=== PATIENT | female | born 1960 | race Caucasian/White ===

== ENCOUNTER → 2017-12-25 17:32 | Outpatient (CLI) | payer OTHER, MEDICAID, SELFPAY ==
--- NOTE | 2017-12-25 17:36 | DI.RAD.S_ITS ---
PROCEDURE: XR SACRUM COCCYX MIN 2V INDICATIONS: back pain TECHNIQUE: 3 views of the sacrum and coccyx acquired. COMPARISON: [facility], KHUSHI, L-SPINE 2-3 VIEWS, 04/11/2015, 10:53. [facility], KHUSHI, XR LUMBAR SPINE 2-3V, 12/25/2017, 17:42. FINDINGS: Bones: No fractures or dislocations. No suspicious bony lesions. Soft tissues: Visualized bowel gas pattern is normal. No suspicious soft tissue densities. IMPRESSION: No trauma found, involving the sacrum. Note is again made of a bilateral pars interarticularis defect at L5, with secondary grade 2 anterolisthesis of L5 on S1. This has been previously documented including in April of 2015. Dictated by: Neo Cornejo M.D. on 12/25/2017 at 19:33 Approved by: Neo Cornejo M.D. on 12/25/2017 at 19:35
--- NOTE | 2017-12-25 17:36 | DI.RAD.S_ITS ---
PROCEDURE: XR LUMBAR SPINE 2-3V INDICATIONS: back pain TECHNIQUE: 2 views of the lumbar spine were acquired. COMPARISON: None. FINDINGS: Bones: 5 [id number] vertebrae are present. There is abnormal bony alignment with grade 2 anterolisthesis of L5 on S1 associated with bilateral pars interarticularis defects. No vertebral body compression fractures. No suspicious bony lesions. Soft tissues: Overlying bowel gas pattern is normal. No suspicious soft tissue calcifications. IMPRESSION: Bilateral pars interarticularis defects are present with grade 2 anterolisthesis of L5 on S1. This likely is chronic and congenital, and orthopedic surgical consultation is recommended electively, depending on the clinical status. Dictated by: Neo Cornejo M.D. on 12/25/2017 at 19:32 Approved by: Neo Cornejo M.D. on 12/25/2017 at 19:33
== END ==
PROVIDERS: PCP Physician Assistant; Visit Provider Physician Assistant
DX: M54.5 Low back pain (principal); M43.17 Spondylolisthesis, lumbosacral region
CPT/HCPCS: 72100; 72220

== ENCOUNTER → 2018-01-14 14:37 | Outpatient (CLI) | payer OTHER, MEDICAID, SELFPAY ==
[2018-01-14 16:43] LABS: Add Manual Diff / Slide Review NO; Basophils Percent Auto 0.7 % (0-2); Eosinophils Percent Auto 1.6 % (2-4); Hematocrit 40.3 % (36-46); Hemoglobin 13.8 g/dL (12.0-16.0); Lymphocytes Percent Auto 46.4 % (25-40); Mean Corpuscular HGB Conc 34.4 % (30-36); Mean Corpuscular Hemoglobin 33.3 PG (26-34); Mean Corpuscular Volume 96.8 fL (80-100); Monocytes Percent Auto 7.2 % (3-14); Neutrophils Absolute Auto 2900 /uL (3000-5900); Neutrophils Percent Auto 44.1 % (50-75); Platelet Count 349 X10^3/uL (150-400); Red Blood Cell Count 4.16 X10^6/uL (4.0-5.2); Red Cell Distribution Width 13.1 % (11.6-14.8); White Blood Cell Count 6.6 X10^3/uL (4.5-11.0)
[2018-01-14 16:57] LABS: HEMOLYSIS < 15 (0-50); Iron 146 ug/dL (37-170)
[2018-01-14 16:58] LABS: Alanine Aminotransferase 24 IU/L (9-52); Albumin 4.4 g/dL (3.5-5.0); Albumin Globulin Ratio 1.6 (1.0-2.8); Alkaline Phosphatase 67 U/L (38-126); Aspartate Aminotransferase 22 IU/L (14-36); BUN Creatinine Ratio 21.7 (6-22); Bilirubin Total 0.3 mg/dL (0.2-1.3); Blood Urea Nitrogen 13 mg/dL (7-17); Calcium 9.5 mg/dL (8.4-10.2); Carbon Dioxide 28 mmol/L (22-32); Chloride 104 mmol/L (98-107); Estimated Glomerular Filt Rate > 60.0 mL/min (>60); Globulin 2.7 g/dL (1.7-4.1); Glucose 93 mg/dL (70-100); HEMOLYSIS < 15 (0-50); Potassium 3.7 mmol/L (3.4-5.1); Sodium 143 mmol/L (137-145); Total Protein 7.1 g/dL (6.3-8.2)
[2018-01-14 17:07] LABS: Percent Iron Saturation 43 % (15-50); Total Iron Binding Capacity 339 ug/dL (265-497); Transferrin 299 mg/dL (206-381)
[2018-01-14 17:21] LABS: Vitamin D 25 Hydroxy (D3) 32.5 ng/mL (30.0-100.0)
[2018-01-14 17:29] LABS: Thyroid Stimulating Hormone 2.42 uIU/mL (0.47-4.68)
[2018-01-14 17:33] LABS: Ferritin 47.2 ng/mL (11.1-264)
[2018-01-14 17:47] LABS: Vitamin B12 > 1000 pg/mL (239-931)
== END ==
PROVIDERS: Family Provider Physician Assistant; PCP Physician Assistant; Visit Provider Physician Assistant
DX: M54.5 Low back pain (principal); R50.9 Fever, unspecified; D51.0 Vitamin B12 deficiency anemia due to intrinsic factor deficiency; F17.200 Nicotine dependence, unspecified, uncomplicated; K57.31 Diverticulosis of large intestine without perforation or abscess with bleeding; R53.83 Other fatigue
CPT/HCPCS: 36415; 80053; 82306; 82607; 82728; 83540; 83550; 84443; 85025; 87086

== ENCOUNTER → 2018-03-02 12:12 | Outpatient (CLI) | payer OTHER, MEDICAID, SELFPAY ==
--- NOTE | 2018-03-02 12:16 | DI.MG.S_ITS ---
BILATERAL DIGITAL SCREENING MAMMOGRAM 3D/2D WITH CAD: 03/02/2018 CLINICAL: Routine screening. Comparison is made to exams dated: 08/13/2016 mammogram, 04/03/2015 mammogram, and 03/27/2014 mammogram - [facility]. The tissue of both breasts is heterogeneously dense. This may lower the sensitivity of mammography. Current study was also evaluated with a Computer Aided Detection (CAD) system. No significant masses, calcifications, or other findings are seen in either breast. There has been no significant interval change. IMPRESSION: NEGATIVE There is no mammographic evidence of malignancy. A 1 year screening mammogram is recommended. This exam was interpreted at Station ID: [id number]. NOTE: For mammograms, a report in lay terms will be sent to the patient. Approximately 15% of breast malignancies will not be visualized mammographically. In the management of a palpable breast mass, a negative mammogram must not discourage biopsy of a clinically suspicious lesion. Electronically Signed By: Jimenez mcdonnell/philip:03/02/2018 13:38:02 letter sent: Normal Exam ACR BI-RADS Category 1: Negative [id number]
== END ==
PROVIDERS: PCP Physician Assistant; Visit Provider Physician Assistant
DX: Z12.31 Encounter for screening mammogram for malignant neoplasm of breast (principal)
CPT/HCPCS: 77063; 77067

== ENCOUNTER → 2018-06-29 20:00 | Outpatient (CLI) | payer OTHER, MEDICAID, SELFPAY | PROVIDERS: PCP Physician Assistant; Visit Provider Physician Assistant | DX: N30.01 Acute cystitis with hematuria (principal) | CPT/HCPCS: 87086 ==

== ENCOUNTER → 2018-07-02 10:37 | Outpatient (CLI) | payer OTHER, MEDICAID, SELFPAY ==
--- NOTE | 2018-07-02 10:39 | DI.US.S_ITS ---
PROCEDURE: US ABDOMEN COMPLETE INDICATIONS: NAUSEA, VOMITING; EPIGASTRIC PAIN TECHNIQUE: Real-time scanning was performed of the abdominal and retroperitoneal organs, with image documentation. COMPARISON: [facility], US, ABDOMEN COMPLETE, 01/26/2017, 9:18. FINDINGS: Liver: Liver is normal in size and homogeneous in echotexture. Gallbladder: The gallbladder contains a 4 x 5 mm, noncalcified, non-shadowing nodule adherent to the anterior wall without internal vascular flow. No other stones are significant sludge. The wall is normal thickness at 1.0 mm. No pericholecystic fluid or Bauer sign. Biliary ducts: Intrahepatic bile ducts are non-dilated. Extrahepatic bile duct caliber measures 6.1 mm. Normal is 6-7 mm or less in diameter, or 10 mm or less post-cholecystectomy. Pancreas: Visualized portions of the pancreas are sonographically normal. Spleen: Spleen is normal in size and homogeneous in echotexture. Kidneys: Kidneys are normal in size and echotexture. Right kidney measures 10.5 cm long; left kidney measures 9.5 cm long. No hydronephrosis. A short linear echogenic focus in the lower pole of left kidney, stable compared to the prior study. No solid masses. Aorta: Visualized aorta is normal in caliber at less than 3 cm. Iliacs: Proximal common iliac arteries are normal in caliber at less than 2.5 cm. IVC: Intrahepatic inferior vena cava is patent. Miscellaneous: No free abdominal fluid. IMPRESSION: 1. Anterior wall 5 mm gallbladder polyp without growth since the prior study. 2. Stable, small linear, nonobstructing echogenic focus within the lower pole left kidney, parenchymal calcification versus stable, nonobstructing collecting system calcification. Dictated by: Cinthya Gray M.D. on 07/02/2018 at 12:46 Approved by: Cinthya Gray M.D. on 07/02/2018 at 12:50
--- NOTE | 2018-07-02 10:39 | DI.RAD.S_ITS ---
PROCEDURE: FL BARIUM SWALLOW INDICATIONS: Dysphagia principally liquids rule out motility issue COMPARISON: [facility], CR, XR BARIUM SWALLOW, 05/14/2017, 13:59. FINDINGS: Function: There is normal esophageal peristalsis. No elicited gastroesophageal reflux. There is normal transit of a calibrated barium tablet through the esophagus into the stomach. Morphology: Air-contrast images demonstrate normal mucosal morphology. Single contrast views show no esophageal strictures, extrinsic mass effects, or diverticula. Limited images of the stomach demonstrate normal appearance. IMPRESSION: Normal esophagram with normal esophageal motility. Dictated by: Cinthya Gray M.D. on 07/02/2018 at 14:01 Approved by: Cinthya Gray M.D. on 07/02/2018 at 14:05
== END ==
PROVIDERS: PCP Physician Assistant; Visit Provider Specialist
DX: R11.2 Nausea with vomiting, unspecified (principal); R10.13 Epigastric pain; R13.10 Dysphagia, unspecified; K82.4 Cholesterolosis of gallbladder
CPT/HCPCS: 74220; 76700

== ENCOUNTER → 2018-07-21 11:51 | Outpatient (ROUT) | payer OTHER, MEDICAID, SELFPAY ==
[2018-07-21 12:05] LABS: Appearance Urine UA CLEAR; Bilirubin Urine UA NEGATIVE (NEGATIVE); Color Urine UA YELLOW; Glucose Urine UA NEGATIVE (Negative); Ketones Urine UA NEGATIVE (NEGATIVE); Leukocyte Esterase Urine UA NEGATIVE (NEGATIVE); Nitrite Urine UA NEGATIVE (Negative); Occult Blood Urine UA TRACE-LYSED (Negative); Protein Urine UA NEGATIVE (Negative); Urobilinogen Urine UA 0.2 E.U./dL (0.2)
[2018-07-21 12:18] LABS: Bacteria Urine Occasional (0-1); RBC Urine 0-1/HPF (0-5/HPF); WBC Urine 0-1/HPF (0-5/HPF)
[2018-07-21 12:19] LABS: Culture Indicated Urine Cult Not Indicated
== END ==
PROVIDERS: PCP Physician Assistant; Visit Provider Physician Assistant
DX: R35.0 Frequency of micturition (principal); R10.2 Pelvic and perineal pain
CPT/HCPCS: 81001

== ENCOUNTER 2018-08-20 10:15 | Day surgery (SDC) | payer OTHER, MEDICAID, SELFPAY ==
--- NOTE | 2018-08-20 | PATH_ITS ---
[facility] Accession Number: [id number] . 01 Material submitted: . gastrointestinal site - BIOPSY ANTRUM . 02 Diagnosis: Biopsy, Gastric Antrum: Mild chronic gastritis involving antral mucosa. Negative for evidence of Helicobacter on H/E stain. Negative for intestinal metaplasia. Negative for dysplasia and malignancy. [facility]/08/23/2018 . 02 Electronically signed: . Jason Ulloa MD, Pathologist NPI- [id number] . 01 Gross description: . BIOPSY ANTRUM: Received in formalin is 1 fragment(s) of swan, soft tissue measuring 0.4 x 0.3 x 0.3 cm submitted entirely in 1 cassette(s) /CKI /CKI . 02 Pathologist provided ICD-10: K29.70 . 02 CPT . 915713 Performed at: 01 [facility] [address] [id number] MD Jimenez Rodriguez MD Phone: [phone] Performed at: 02 [facility] [address] [place], [place] [id number] MD Ivonne Coker MD Phone: [phone]
[2018-08-20 10:59] VITALS: BP 119/71; PULSE 68; RESP 16; TEMP 36.7; O2SAT 100; BMI 18.7
[2018-08-20] MEDS: SODIUM CHLORIDE 0.9% 1,000 ML 200 ML IV (11:06)
--- NOTE | 2018-08-20 12:21 | P.HP_ITS ---
History of Present Illness Date Patient Seen: 08/20/18 Time Patient Seen: 12:18 Chief complaint: [id number] EGD Narrative: Patient here to evaluate epigastric pain. Not clear if it is due to her gallbladder or her upper GI tract. She has a known stable sized polyp avoid lesion in the gallbladder. It is 5 mm. It may represent a soft stone. 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 Mother Cancer Brother Cancer Gallstones Family/Other No problems noted. Family/Other Rheumatoid arthritis Social History Smoking Status: Current every day smoker Tobacco: How many years used: 30 quit status: considering quitting second hand exposure: Yes alcohol intake: current substance use type: marijuana Family & Social History Family History Father No problems noted. Mother Cancer Brother Cancer Gallstones Family/Other No problems noted. Family/Other Rheumatoid arthritis Tobacco & Substance use: Smoking Status Current every day smoker alcohol intake current Meds Home Medications Medication Instructions Recorded Confirmed Type [PROBIOTIC] 2 - 3 cap PO QDAY #0 05/12/17 07/27/18 History tramadol 50 - 100 mg PO Q8HP PRN #60 tab 06/01/17 07/27/18 Rx clonazepam 1 mg tablet 1 mg PO BID PRN #60 tab 08/25/17 07/27/18 Rx pneumococcal 13-rodger conj 0.5 ml IM ONCE #0.5 ml 01/18/18 07/27/18 Rx vaccine-dip crm (PF) 0.5 mL IM syringe albuterol sulfate HFA 90 2 puff INHALATION Q4-6H PRN #18 01/28/18 07/27/18 Rx mcg/actuation aerosol inhaler gram estradiol 0.01% (0.1 mg/gram) See Rx Instructions VAGINAL HS PRN 01/28/18 07/27/18 Rx vaginal cream #42.5 gram tizanidine 4 mg tablet 4 mg PO BEDTIME PRN tab 01/28/18 07/27/18 History pantoprazole 40 mg tablet,delayed 40 mg PO DAILY #90 tab 05/06/18 07/27/18 Rx release ipratropium bromide 17 2 puff INHALATION BID-QID PRN 07/09/18 07/27/18 Rx mcg/actuation HFA aerosol inhaler #12.9 gram calcitonin (salmon) 200 1 spray INTRANASAL (ALT) QDAY #3.7 07/13/18 07/27/18 Rx unit/actuation nasal spray ml fluticasone propionate 50 1 spray NASAL BIDP PRN #1 gram 07/13/18 07/27/18 Rx mcg/actuation nasal spray,suspension mupirocin 2 % topical ointment 1 applictn TOP TID PRN 07/21/18 07/27/18 History CBD Oil Tincture See Rx Instructions .ROUTE .COMPLEX 07/27/18 07/27/18 History Protein smoothie See Rx Instructions .ROUTE .COMPLEX 07/27/18 07/27/18 History Allergies Allergy/AdvReac Type Severity Reaction Status Date / Time Latex, Natural Rubber Allergy Mild REDNESS, Verified 08/20/18 10:52 [LATEX, NATURAL RUBBER] IRRITATION AND BLISTERS hydrocodone AdvReac Intermediate MAKES MY Verified 08/20/18 10:52 SKIN CRAWL AND ITCH. WIRES ME UP. codeine [CODEINE] AdvReac Mild makes my Verified 08/20/18 10:52 skin crawl Penicillins [PENICILLINS] AdvReac Mild UPSET Verified 08/20/18 10:52 STOMACH AND DIARRHEA Sulfa (Sulfonamide AdvReac Mild GI upset Verified 08/20/18 10:52 Antibiotics) [SULFA (SULFONAMIDE ANTIBIOTICS)] tramadol [TRAMADOL] AdvReac Mild UPPER Verified 08/20/18 10:52 RESPIRATORY ISSUES BUT TOLERABLE Review of Systems Review of Systems All systems reviewed & are unremarkable except as noted in HPI and below Gastrointestinal Comments: Recently started on liquid rich root and tumor Arthur and Q min and her epigastric symptoms have improved. Genitourinary Comments: Recently passed a kidney stone or pain in her right lower quadrant is gone away. Exam Vital Signs (past 8 hours): - 08/20/18 10:59 Temperature 98.0 F Pulse Rate 68 Respiratory Rate 16 Blood Pressure 119/71 Pulse Oximetry 100 Oxygen Delivery Method Room Air Narrative Exam Narrative: Pleasant cooperative patient no apparent distress. Lungs are cl ear to auscultation. No rales or rhonchi. Heart regular rate and rhythm no murmur gallop. Abdomen is soft nontender without mass. No obvious hernias. Patient is alert and oriented x3. Assessment & Plan Assessment & Plan narrative: Plan EGD. I have discussed the procedure with the patient including risks of bleeding perforation. She appears to understand wishes to proceed.
[2018-08-20] MEDS: TETRACAINE/BENZOCAINE/BUTAMBEN (CETACAINE) BOTTLE 1 SPRAY TOP (12:24)
[2018-08-20] MEDS: LIDOCAINE 4% SOLN 50 ML 20 ML TOP (12:25)
--- NOTE | 2018-08-20 12:25 | PM.PREOP ---
Pre-operative Note Interval Note History & Physical reviewed/Exam performed by Physician: Yes Changes to H&P: No ASA Class (for procedural sedation): II
[2018-08-20] MEDS: fentaNYL 250 MCG/5 ML INJ IV (12:34)
--- NOTE | 2018-08-20 12:36 | PM.OP.ENDO ---
Operative Date/Time/Diagnoses Date of procedure: 08/20/18 Time of procedure: 12:37 Pre-op diagnosis: Epigastric pain Post-op diagnosis: same (Superficial ulcers. Could be source of symptoms) Procedure & Clinicians Study performed: EGD with cold biopsy Same procedure as scheduled: Yes Indications: Epigastric pain of uncertain origin Surgeon: Jacobo Hammond Procedure Notes SCOAP/Timeout: Performed Procedure in detail: The patient had topical anesthetic applied to oropharynx. She was placed in left lateral decubitus position and underwent IV sedation directed by the surgeon consisting of fentanyl and Versed. A bite block was inserted and the scope was advanced through it into the esophagus. The esophagus was unremarkable. GE junction was noted at 40 cm from the incisors. The stomach insufflated well. One superficial lesion with the small punctate of black material presumptively blood in its center was noted.. The pyloric channel was patent. The duodenum was unremarkable to the 4th part. The scope was brought back into the stomach and retroflexed. The proximal stomach normal in appearance. There was no hiatal hernia seen. Biopsy was taken of the lesion described along with 1 red punctate area.. The scope was straightened and brought out through the esophagus again. No lesions were seen. The scope was removed and the patient tolerated the procedure well. Scope withdrawal time: Not applicable Sedation minutes: 7 Findings: gastric ulcer (Superficial. Possible source of pain) Specimen(s): other (Biopsy of ulcer) Recommendations: Start medication(s) (zantac) Follow up: months (1) Disposition: PACU
[2018-08-20] MEDS: MIDAZOLAM 5 MG/5 ML VIAL IV (12:38)
[2018-08-20 12:40] VITALS: BP 107/70; PULSE 70; RESP 10; O2SAT 95
[2018-08-20 12:45] VITALS: BP 113/63; PULSE 72; RESP 16; TEMP 36.4; O2SAT 97
[2018-08-20 12:51] VITALS: BP 108/66; PULSE 70; RESP 11; O2SAT 96
[2018-08-20 13:15] VITALS: BP 114/72; PULSE 71; RESP 16; TEMP 36.7; O2SAT 96
== END 2018-08-20 13:20 | disposition home or self-care (01) ==
PROVIDERS: PCP Physician Assistant; Visit Provider Specialist
PROC: 0DJ08ZZ Inspection of Upper Intestinal Tract, Via Natural or Artificial Opening Endoscopic (ICD-10-PCS; CPT 43235; principal; 2018-08-20 11:45)
DX: K25.9 Gastric ulcer, unspecified as acute or chronic, without hemorrhage or perforation (principal); K29.70 Gastritis, unspecified, without bleeding; J43.8 Other emphysema; Z72.0 Tobacco use; D51.0 Vitamin B12 deficiency anemia due to intrinsic factor deficiency
CPT/HCPCS: 43239; J2250; J3010

== ENCOUNTER → 2018-08-26 09:40 | Oncology outpatient (ONC) | payer OTHER, MEDICAID, SELFPAY ==
[2018-06-21 12:55] VITALS: BP 122/77; PULSE 70; RESP 16; TEMP 36.6; O2SAT 98
--- NOTE | 2018-06-21 12:58 | ONC.PN ---
PN -Subjective Interval history: Ms. Jennifer De Jesus is a 58-year-old female with past medical history of gallstone, kidney stone, seasonal allergies, and Gutierrez's esophagus. Patient was diagnosed with vitamin B12 deficiency in January of 2016. She was tested positive for anti intrinsic antibody which later turned negative. Since then patient has been getting vitamin B12 injection 1000 mg once a month. If she missed 1 shot, she felt run down. No abdominal pain. she underwent upper endoscopy with biopsy on 05/22/2017. The biopsy was consistent with Gutierrez's esophagus. - Additional ROS All systems PM: reviewed and no additional remarkable complaints except as stated Home Medications and Allergies Home Medications Medication Instructions Recorded Confirmed Type [PROBIOTIC] 2 - 3 cap PO QDAY #0 05/12/17 06/21/18 History mupirocin 2 % TOPICAL TID #30 gm 05/19/17 06/21/18 Rx calcitonin (salmon) 1 puff NS QDAY #3.7 ml 06/01/17 06/21/18 Rx tramadol 50 - 100 mg PO Q8HP PRN #60 tab 06/01/17 06/21/18 Rx clonazepam 1 mg tablet 1 mg PO BID PRN #60 tab 08/25/17 06/21/18 Rx pneumococcal 13-rodger conj 0.5 ml IM ONCE #0.5 ml 01/18/18 06/21/18 Rx vaccine-dip crm (PF) 0.5 mL IM syringe albuterol sulfate HFA 90 2 puff INHALATION Q4-6H PRN #18 01/28/18 06/21/18 Rx mcg/actuation aerosol inhaler gram estradiol 0.01% (0.1 mg/gram) See Rx Instructions VAGINAL HS PRN 01/28/18 06/21/18 Rx vaginal cream #42.5 gram tizanidine 4 mg tablet 4 mg PO BEDTIME PRN tab 01/28/18 06/21/18 History pantoprazole 40 mg tablet,delayed 40 mg PO DAILY #90 tab 05/06/18 06/21/18 Rx release fluticasone propionate 50 1 spray NASAL BIDP PRN #1 gram 05/18/18 06/21/18 Rx mcg/actuation nasal spray,suspension Ensure High Protein-Muscle Drink See Rx Instructions .ROUTE .COMPLEX 06/02/18 06/21/18 History ipratropium bromide 17 2 puff INHALATION BID-QID PRN gram 06/02/18 06/21/18 History mcg/actuation HFA aerosol inhaler Allergies Allergy/AdvReac Type Severity Reaction Status Date / Time Latex, Natural Rubber Allergy Mild REDNESS, Verified 06/02/18 10:08 [LATEX, NATURAL RUBBER] IRRITATION AND BLISTERS codeine [CODEINE] AdvReac Mild makes my Verified 06/02/18 10:08 skin crawl Penicillins [PENICILLINS] AdvReac Mild UPSET Verified 06/02/18 10:08 STOMACH AND DIARRHEA Sulfa (Sulfonamide AdvReac Mild GI upset Verified 06/02/18 10:08 Antibiotics) [SULFA (SULFONAMIDE ANTIBIOTICS)] tramadol [TRAMADOL] AdvReac Mild UPPER Verified 06/02/18 10:08 RESPIRATORY ISSUES BUT TOLERABLE HYDROCODONE/ACETAMINOPHEN AdvReac Severe MAKES MY Uncoded 06/02/18 10:08 SKIN CRAWL AND ITCH. WIRES ME UP. Exam Vital signs: Last Vital Signs Temp 97.9 F 06/21/18 12:55 Pulse 70 06/21/18 12:55 Resp 16 06/21/18 12:55 BP 122/77 06/21/18 12:55 Pulse Ox 98 06/21/18 12:55 ECOG 1 Narrative: Gen: WDWN, NAD, cooperative Heent: NCAT, EOMI, PERLLA, anicteric Neck: supple, no palpable lymphadenopathy Lungs: CTAB, NO wheezes Card: RRR, S1 and S2 normal, no MGR Abd: soft, non-tender, no palpable organomegaly Ext: no pitting edema Neuro: AOx3, nonfocal Results - Labs 05/28/2018 WBC 77, HGB 14.1, HCT 43.3, PLT 334 Na 140, K 4.1, Bun 10.7, Cr 0.67, Glu 112 Ca 9.2, Ast 16, Alt 9, Alp 62, Tp 7.3, Tb 0.4 - Imaging Additional studies: Procedures Other local excision or destruction of lesion of joint, shoulder (08/18/14) Assessment and Plan (1) Vitamin B 12 deficiency Assessment and Plan: Patient has known vitamin B12 deficiency likely due to intrinsic factor auto antibodies and has been receiving vitamin B12 injection once a month and [facility]ias's office. Patient just had an injection yesterday. Patient is scheduled for upper endoscopy this week. I talked with her that I will see her in about a month and I will repeat the laboratory tests. If the laboratory tests are normal and the upper endoscopy is unrevealing, I will refer her back to [facility] for continued follow-up.
[2018-07-19 15:41] LABS: Add Manual Diff / Slide Review NO; Basophils Absolute Auto 100 /uL (0-100); Basophils Percent Auto 0.8 % (0-2); Eosinophils Absolute Auto 100 /uL (0-450); Eosinophils Percent Auto 1.1 % (2-4); Hemoglobin 14.4 g/dL (12.0-16.0); Lymphocytes Absolute Auto 3300 /uL (1100-4500); Mean Corpuscular HGB Conc 34.4 % (30-36); Mean Corpuscular Hemoglobin 33.6 PG (26-34); Mean Corpuscular Volume 97.7 fL (80-100); Monocytes Absolute Auto 500 /uL (0-900); Neutrophils Absolute Auto 4500 /uL (1500-7000); Neutrophils Percent Auto 53.1 % (50-75); Platelet Count 299 X10^3/uL (150-400); White Blood Cell Count 8.5 X10^3/uL (4.5-11.0)
[2018-07-19 15:55] LABS: Alanine Aminotransferase 13 IU/L (9-52); Albumin 4.8 g/dL (3.5-5.0); Albumin Globulin Ratio 1.7 (1.0-2.8); Alkaline Phosphatase 50 U/L (38-126); Aspartate Aminotransferase 23 IU/L (14-36); Bilirubin Total 0.6 mg/dL (0.2-1.3); Blood Urea Nitrogen 12 mg/dL (7-17); Calcium 9.9 mg/dL (8.4-10.2); Carbon Dioxide 23 mmol/L (22-32); Chloride 107 mmol/L (98-107); Estimated Glomerular Filt Rate > 60.0 mL/min (>60); Globulin 2.8 g/dL (1.7-4.1); Glucose 133 mg/dL (80-110); HEMOLYSIS < 15 (0-50); Potassium 3.6 mmol/L (3.4-5.1); Sodium 141 mmol/L (137-145); Total Protein 7.6 g/dL (6.3-8.2)
[2018-07-19 16:06] LABS: Iron 144 ug/dL (37-170)
[2018-07-19 16:31] LABS: Ferritin 54.9 ng/mL (11.1-264)
[2018-07-19 17:01] LABS: Folate > 20.0 ng/mL (2.76-20.0); Vitamin B12 306 pg/mL (239-931)
[2018-08-26 09:59] VITALS: BP 131/84; PULSE 65; RESP 18; TEMP 36.8; O2SAT 98
--- NOTE | 2018-08-26 10:07 | ONC.PN ---
PN -Subjective Interval history: Ms. Jennifer De Jesus is a 58-year-old female with past medical history of gallstone, kidney stone, seasonal allergies, and Gutierrez's esophagus. Patient was diagnosed with vitamin B12 deficiency in January of 2016. She was tested positive for anti intrinsic antibody which later turned negative. Since then patient has been getting vitamin B12 injection 1000 mg once a month. If she missed 1 shot, she felt run down. No abdominal pain. she underwent upper endoscopy with biopsy on 05/22/2017. The biopsy was consistent with Gutierrez's esophagus. Since her previous visit, patient underwent repeat upper endoscopy by Dr. Hammond on August 20, 2018. A gastric ulcer was identified. Biopsy showed no evidence of malignancy. Clinically patient does not have any new signs or symptoms except the abdominal tenderness. The laboratory tests including vitamin B12 and folic acid are within the normal range. - Patient Self-Reported Symptoms SR Constitution: Chills, Night Sweats SR eye issues: Vision changes SR ears, nose, mouth, throat issues: Cough, Hoarseness SR Skin issues: Skin rash or itching, Hair loss or scalp prob SR Gastrointestinal issues: Nausea, Abdominal pain SR Musculoskeletal issues: Joint pain or swelling, Muscle weakness, Muscle pain or cramps, Difficulty walking - Additional ROS All systems PM: reviewed and no additional remarkable complaints except as stated Home Medications and Allergies Home Medications Medication Instructions Recorded Confirmed Type [PROBIOTIC] 2 - 3 cap PO QDAY #0 05/12/17 07/27/18 History tramadol 50 - 100 mg PO Q8HP PRN #60 tab 06/01/17 07/27/18 Rx clonazepam 1 mg tablet 1 mg PO BID PRN #60 tab 08/25/17 07/27/18 Rx pneumococcal 13-rodger conj 0.5 ml IM ONCE #0.5 ml 01/18/18 07/27/18 Rx vaccine-dip crm (PF) 0.5 mL IM syringe albuterol sulfate HFA 90 2 puff INHALATION Q4-6H PRN #18 01/28/18 07/27/18 Rx mcg/actuation aerosol inhaler gram estradiol 0.01% (0.1 mg/gram) See Rx Instructions VAGINAL HS PRN 01/28/18 07/27/18 Rx vaginal cream #42.5 gram tizanidine 4 mg tablet 4 mg PO BEDTIME PRN tab 01/28/18 07/27/18 History pantoprazole 40 mg tablet,delayed 40 mg PO DAILY #90 tab 05/06/18 07/27/18 Rx release ipratropium bromide 17 2 puff INHALATION BID-QID PRN 07/09/18 07/27/18 Rx mcg/actuation HFA aerosol inhaler #12.9 gram calcitonin (salmon) 200 1 spray INTRANASAL (ALT) QDAY #3.7 07/13/18 07/27/18 Rx unit/actuation nasal spray ml fluticasone propionate 50 1 spray NASAL BIDP PRN #1 gram 07/13/18 07/27/18 Rx mcg/actuation nasal spray,suspension mupirocin 2 % topical ointment 1 applictn TOP TID PRN 07/21/18 07/27/18 History CBD Oil Tincture See Rx Instructions .ROUTE .COMPLEX 07/27/18 07/27/18 History Protein smoothie See Rx Instructions .ROUTE .COMPLEX 07/27/18 07/27/18 History ranitidine HCl 300 mg PO BEDTIME #30 tab 08/20/18 Rx Allergies Allergy/AdvReac Type Severity Reaction Status Date / Time Latex, Natural Rubber Allergy Mild REDNESS, Verified 08/20/18 10:52 [LATEX, NATURAL RUBBER] IRRITATION AND BLISTERS hydrocodone AdvReac Intermediate MAKES MY Verified 08/20/18 10:52 SKIN CRAWL AND ITCH. WIRES ME UP. codeine [CODEINE] AdvReac Mild makes my Verified 08/20/18 10:52 skin crawl Penicillins [PENICILLINS] AdvReac Mild UPSET Verified 08/20/18 10:52 STOMACH AND DIARRHEA Sulfa (Sulfonamide AdvReac Mild GI upset Verified 08/20/18 10:52 Antibiotics) [SULFA (SULFONAMIDE ANTIBIOTICS)] tramadol [TRAMADOL] AdvReac Mild UPPER Verified 08/20/18 10:52 RESPIRATORY ISSUES BUT TOLERABLE Exam Vital signs: Last Vital Signs Temp 98.3 F 08/26/18 09:59 Pulse 65 08/26/18 09:59 Resp 18 08/26/18 09:59 BP 131/84 08/26/18 09:59 Pulse Ox 98 08/26/18 09:59 ECOG 1 Narrative: Gen: WDWN, NAD, cooperative Heent: NCAT, EOMI, PERLLA, anicteric Neck: supple, no palpable lymphadenopathy Lungs: CTAB, NO wheezes Card: RRR, S1 and S2 normal, no MGR Abd: soft, non-tender, no palpable organomegaly Ext: no pitting edema Neuro: AOx3, nonfocal Results - Labs Laboratory Last Values WBC 8.5 X10^3/uL (4.5-11.0) 07/19/18 15:31 RBC 4.30 X10^6/uL (4.0-5.2) 07/19/18 15: Hgb 14.4 g/dL (12.0-16.0) 07/19/18 15: Hct 42.0 % (36-46) 07/19/18 15: MCV 97.7 fL (80-100) 07/19/18 15: MCH 33.6 PG (26-34) 07/19/18 15: MCHC 34.4 % (30-36) 07/19/18 15: RDW 13.0 % (11.6-14.8) 07/19/18 15: Plt Count 299 X10^3/uL (150-400) 07/19/18 15:31 Neut % (Auto) 53.1 % (50-75) 07/19/18 15:31 Lymph % (Auto) 39.0 % (25-40) 07/19/18 15:31 [place] % (Auto) 6.0 % (3-14) 07/19/18 15:31 Eos % (Auto) 1.1 % (2-4) L 07/19/18 15:31 Baso % (Auto) 0.8 % (0-2) 07/19/18 15:31 Neut # (Auto) 4500 /uL (9725-4335) 07/19/18 15:31 Lymph # (Auto) 3300 /uL (5733-5432) 07/19/18 15:31 [place] # (Auto) 500 /uL (0-900) 07/19/18 15:31 Eos # (Auto) 100 /uL (0-450) 07/19/18 15:31 Baso # (Auto) 100 /uL (0-100) 07/19/18 15:31 Sodium 141 mmol/L (137-145) 07/19/18 15:31 Potassium 3.6 mmol/L (3.4-5.1) 07/19/18 15:31 Chloride 107 mmol/L (98-107) 07/19/18 15:31 Carbon Dioxide 23 mmol/L (22-32) 07/19/18 15:31 BUN 12 mg/dL (7-17) 07/19/18 15:31 Creatinine 0.60 mg/dL (0.52-1.04) 07/19/18 15:31 Estimated GFR > 60.0 mL/min (>60) 07/19/18 15:31 BUN/Creatinine Ratio 20.0 (6-22) 07/19/18 15:31 Glucose 133 mg/dL (80-110) H 07/19/18 15:31 Calcium 9.9 mg/dL (8.4-10.2) 07/19/18 15:31 Iron 144 ug/dL (37-170) 07/19/18 15:31 Ferritin 54.9 ng/mL (11.1-264) 07/19/18 15:31 Total Bilirubin 0.6 mg/dL (0.2-1.3) 07/19/18 15:31 AST 23 IU/L (14-36) 07/19/18 15:31 ALT 13 IU/L (9-52) 07/19/18 15:31 Alkaline Phosphatase 50 U/L (38-126) 07/19/18 15:31 Total Protein 7.6 g/dL (6.3-8.2) 07/19/18 15:31 Albumin 4.8 g/dL (3.5-5.0) 07/19/18 15:31 Globulin 2.8 g/dL (1.7-4.1) 07/19/18 15:31 Albumin/Globulin Ratio 1.7 (1.0-2.8) 07/19/18 15:31 Vitamin B12 306 pg/mL (239-931) 07/19/18 15:31 Folate > 20.0 ng/mL (2.76-20.0) H 07/19/18 15:31 - Imaging Additional studies: Procedures Other local excision or destruction of lesion of joint, shoulder (08/18/14) Assessment and Plan (1) Vitamin B 12 deficiency Assessment and Plan: Patient has known vitamin B12 deficiency likely due to intrinsic factor auto-antibodies and has been receiving vitamin B12 injection once a month at [facility] Matias's office. Repeat laboratory tests including vitamin B12 and folic acid level are all within the normal range. Repeat upper endoscopy on August 20, 2018 showed a gastric ulcer, biopsy of which was without evidence of malignancy. I talked with the patient that I would refer her back to [facility] Matias's office for continued follow-up including vitamin B12 injection as well as the management of gastric ulcer. If there is any new worrisome sign or symptom, I encouraged patient to call us for follow-up visit.
== END ==
PROVIDERS: PCP Physician Assistant; Visit Provider Internal Medicine Hematology & Oncology
DX: E53.8 Deficiency of other specified B group vitamins (principal); K25.9 Gastric ulcer, unspecified as acute or chronic, without hemorrhage or perforation
CPT/HCPCS: 36415; 80053; 82607; 82728; 82746; 83540; 85025; 99213; 99214

== ENCOUNTER → 2018-11-05 09:12 | Outpatient (CLI) | payer OTHER, MEDICAID, SELFPAY ==
[2018-11-05 13:05] LABS: Urine Chlamydia NOT DETECTED; Urine N gonorrhoeae NOT DETECTED
== END ==
PROVIDERS: PCP Physician Assistant; Visit Provider Physician Assistant
DX: R35.0 Frequency of micturition (principal)
CPT/HCPCS: 87086; 87491; 87591

== ENCOUNTER → 2018-11-16 12:39 | Outpatient (CLI) | payer OTHER, MEDICAID, SELFPAY ==
[2018-11-16 13:55] LABS: Add Manual Diff / Slide Review NO; Basophils Absolute Auto 100 /uL (0-100); Basophils Percent Auto 0.8 % (0-2); Eosinophils Absolute Auto 100 /uL (0-450); Eosinophils Percent Auto 0.8 % (2-4); Hematocrit 41.8 % (36-46); Hemoglobin 14.3 g/dL (12.0-16.0); Lymphocytes Absolute Auto 2600 /uL (1100-4500); Lymphocytes Percent Auto 35.9 % (25-40); Mean Corpuscular HGB Conc 34.2 % (30-36); Mean Corpuscular Hemoglobin 33.9 PG (26-34); Monocytes Absolute Auto 400 /uL (0-900); Monocytes Percent Auto 5.5 % (3-14); Neutrophils Absolute Auto 4100 /uL (1500-7000); Platelet Count 312 X10^3/uL (150-400); Red Blood Cell Count 4.22 X10^6/uL (4.0-5.2); Red Cell Distribution Width 13.3 % (11.6-14.8); White Blood Cell Count 7.2 X10^3/uL (4.5-11.0)
[2018-11-16 14:09] LABS: Alanine Aminotransferase 15 IU/L (9-52); Albumin 4.7 g/dL (3.5-5.0); Albumin Globulin Ratio 1.8 (1.0-2.8); Alkaline Phosphatase 54 U/L (38-126); Aspartate Aminotransferase 25 IU/L (14-36); BUN Creatinine Ratio 23.3 (6-22); Bilirubin Total 0.6 mg/dL (0.2-1.3); Blood Urea Nitrogen 14 mg/dL (7-17); Calcium 10.2 mg/dL (8.4-10.2); Carbon Dioxide 29 mmol/L (22-32); Chloride 105 mmol/L (98-107); Estimated Glomerular Filt Rate > 60.0 mL/min (>60); Globulin 2.6 g/dL (1.7-4.1); Glucose 89 mg/dL (80-110); HEMOLYSIS < 15 (0-50); Potassium 4.4 mmol/L (3.4-5.1); Sodium 142 mmol/L (137-145); Total Protein 7.3 g/dL (6.3-8.2)
[2018-11-16 15:54] LABS: Bacteria Urine None Seen
[2018-11-16 16:06] LABS: Appearance Urine UA CLEAR; Bilirubin Urine UA NEGATIVE (NEGATIVE); Color Urine UA YELLOW; Glucose Urine UA NEGATIVE (Negative); Ketones Urine UA NEGATIVE (NEGATIVE); Leukocyte Esterase Urine UA NEGATIVE (NEGATIVE); Nitrite Urine UA NEGATIVE (Negative); Occult Blood Urine UA 1+ (Negative); Protein Urine UA NEGATIVE (Negative); Urobilinogen Urine UA 0.2 E.U./dL (0.2)
[2018-11-16 16:12] LABS: Culture Indicated Urine Cult Not Indicated; RBC Urine 1-5/HPF (0-5/HPF); WBC Urine 1-5/HPF (0-5/HPF)
== END ==
PROVIDERS: PCP Physician Assistant; Visit Provider Nurse Practitioner Family
DX: R10.2 Pelvic and perineal pain (principal); R31.9 Hematuria, unspecified
CPT/HCPCS: 36415; 80053; 81001; 85025

== ENCOUNTER → 2018-11-19 07:54 | Outpatient (CLI) | payer OTHER, MEDICAID, SELFPAY ==
--- NOTE | 2018-11-19 07:55 | DI.US.S_ITS ---
PROCEDURE: US ABDOMEN COMPLETE INDICATIONS: HEMATURIA; LLQ PAIN TECHNIQUE: Real-time scanning was performed of the abdominal and retroperitoneal organs, with image documentation. COMPARISON: [facility], CT, IVP (ABD & PEL WWO CONTRAST), 01/15/2017, 13:09. [facility], US, US ABDOMEN COMPLETE, 07/02/2018, 10:49. [facility], US, ABDOMEN COMPLETE, 01/26/2017, 9:18. FINDINGS: Liver: Liver is normal in size and homogeneous in echotexture. Gallbladder: Gallbladder appears normal Biliary ducts: Intrahepatic bile ducts are non-dilated. Extrahepatic bile duct caliber measures 3.4 mm. Normal is 6-7 mm or less in diameter, or 10 mm or less post-cholecystectomy. Pancreas: Poorly visualized due to the body habitus and bowel gas. Spleen: Spleen is normal in size and homogeneous in echotexture. Kidneys: Kidneys are normal in size and echotexture. Right kidney measures 10.6 cm long; left kidney measures 10.1 cm long. No hydronephrosis or nephrolithiasis. No solid masses. Aorta: Visualized aorta is normal in caliber at less than 3 cm. Iliacs: Proximal common iliac arteries are normal in caliber at less than 2.5 cm. IVC: Intrahepatic inferior vena cava is patent. Miscellaneous: No free abdominal fluid. IMPRESSION: Limited visualization of the pancreas due to body habitus and bowel gas, otherwise normal examination. Given history of microhematuria followup by CT IVP without and with contrast may be warranted at this time, depending on the clinical status. Dictated by: Neo Cornejo M.D. on 11/19/2018 at 9:17 Approved by: Neo Cornejo M.D. on 11/19/2018 at 9:22
== END ==
PROVIDERS: Family Provider Physician Assistant; PCP Physician Assistant; Visit Provider Nurse Practitioner Family
DX: R31.29 Other microscopic hematuria (principal); R10.32 Left lower quadrant pain
CPT/HCPCS: 76700

== ENCOUNTER → 2018-12-01 10:19 | Outpatient (CLI) | payer OTHER, MEDICAID, SELFPAY ==
--- NOTE | 2018-12-01 10:21 | DI.CT.S_ITS ---
PROCEDURE: CT ABDOMEN PELVIS WO/W CON INDICATIONS: hematuria TECHNIQUE: Optional 5 mm thick noncontrast images acquired from the diaphragm to the symphysis pubis. After the administration of intravenous contrast, 5 mm thick images acquired from the diaphragm to the symphysis pubis after a 10-minute delay. 2 mm thick coronal and sagittal reformats were then performed of the kidneys and ureters. For radiation dose reduction, the following was used: automated exposure control, adjustment of mA and/or kV according to patient size. COMPARISON: [facility], CT, IVP (ABD & PEL WWO CONTRAST), 01/15/2017, 13:09. FINDINGS: Image quality: Excellent. Lung bases: Stable left basilar pulmonary cyst. Mild bibasilar atelectasis. Heart size is normal. Urinary system: Both kidneys are normal in size, without hydronephrosis or nephrolithiasis on pre-contrast images. Previously seen 2 mm nonobstructive left renal stone is not visualized on today's imaging. Stable nonenhancing 12 mm posterior left upper pole hypodensity is again noted and compatible with a renal cyst. No perinephric fat stranding. There is normal bilateral renal enhancement. Renal calyces appear normal in morphology when filled with contrast. Opacified portions of both ureters demonstrate normal caliber. Bladder wall thickness is normal. No calcified bladder stones. Other solid organs: Liver is normal in size and enhancement. Gallbladder is unremarkable. Biliary system is non dilated. Pancreas enhances normally. Spleen is normal in size and enhancement. No adrenal nodules. Peritoneum and bowel: Bowel loops demonstrate normal wall thickness and caliber. No free fluid or air. Nodes and vessels: No retroperitoneal or mesenteric adenopathy by size criteria. Aorta and inferior vena cava are normal in size. Abdominal wall: No ventral hernias. Pelvis: No pathologic free pelvic fluid. No inguinal hernias or adenopathy. Bones: No suspicious bony lesions. No acute vertebral body compression fractures. Stable grade 1 anterolisthesis of L5 on S1 secondary to L5 pars defects. IMPRESSION: 1. CT abdomen and pelvis without acute abnormalities. Previously noted 2 mm left renal stone is no longer visualized. No other findings identified on today's examination to explain patient's hematuria. No evidence for urolithiasis or obstructive uropathy. No suspicious filling defects or abnormalities within the visualized upper or lower urinary collecting system. 2. Stable grade 1 anterolisthesis of L5 on S1 secondary to L5 pars defects. 3. Stable posterior left upper pole renal cyst. Dictated by: Ike Solano M.D. on 12/01/2018 at 16:52 Approved by: Ike Solano M.D. on 12/01/2018 at 17:05
== END ==
PROVIDERS: Family Provider Physician Assistant; PCP Physician Assistant; Visit Provider Nurse Practitioner Family
DX: R31.9 Hematuria, unspecified (principal); N28.1 Cyst of kidney, acquired; M43.17 Spondylolisthesis, lumbosacral region
CPT/HCPCS: 74178; Q9967

== ENCOUNTER → 2019-03-10 10:46 | Outpatient (CLI) | payer OTHER, MEDICAID, SELFPAY ==
--- NOTE | 2019-03-10 | DI.MG.S_ITS ---
BILATERAL DIGITAL SCREENING MAMMOGRAM 3D/2D WITH CAD: 03/10/2019 CLINICAL: Routine screening. Comparison is made to exams dated: 03/02/2018 mammogram, 08/13/2016 mammogram, and 04/03/2015 mammogram - [facility]. The tissue of both breasts is heterogeneously dense. This may lower the sensitivity of mammography. Current study was also evaluated with a Computer Aided Detection (CAD) system. No significant masses, calcifications, or other findings are seen in either breast. There has been no significant interval change. IMPRESSION: NEGATIVE There is no mammographic evidence of malignancy. A 1 year screening mammogram is recommended. This exam was interpreted at Station ID: [id number]. NOTE: For mammograms, a report in lay terms will be sent to the patient. Approximately 15% of breast malignancies will not be visualized mammographically. In the management of a palpable breast mass, a negative mammogram must not discourage biopsy of a clinically suspicious lesion. Electronically Signed By: Alva gavin/philip:03/10/2019 11:29:32 letter sent: Normal Exam ACR BI-RADS Category 1: Negative [id number]
== END ==
PROVIDERS: PCP Physician Assistant; Visit Provider Physician Assistant
DX: Z12.31 Encounter for screening mammogram for malignant neoplasm of breast (principal)
CPT/HCPCS: 77063; 77067

== ENCOUNTER → 2019-05-23 14:16 | Outpatient (CLI) | payer OTHER, MEDICAID, SELFPAY ==
[2019-05-24 23:40] LABS: COVID19 Sendout Not Detected (Not Detected)
== END ==
PROVIDERS: PCP Physician Assistant; Visit Provider Registered Nurse
DX: R05 Cough (principal)
CPT/HCPCS: 87635

== ENCOUNTER → 2019-10-24 13:57 | Outpatient (CLI) | payer OTHER, MEDICAID, SELFPAY ==
--- NOTE | 2019-10-24 13:59 | DI.RAD.S_ITS ---
PROCEDURE: XR LUMBAR SPINE MIN 4V INDICATIONS: low back pain TECHNIQUE: 4 views of the lumbar spine were acquired. COMPARISON: [facility], CR, XR LUMBAR SPINE 2-3V, 12/25/2017, 17:42. FINDINGS: Bones: No fracture. Multilevel degenerative endplate sclerosis and spurring. Diffuse facet arthropathy. Grade 2 anterolisthesis of L5 on S1. Moderate narrowing of the L5-S1 disc space. Soft tissues: Overlying bowel gas pattern is normal. No suspicious soft tissue calcifications. Scattered vascular calcifications seen in the aorta. Chronic L5 pars defects. IMPRESSION: Chronic L5 pars defects and grade 2 anterolisthesis of L5 on S1, unchanged. Dictated by: Kalyan Peña M.D. on 10/24/2019 at 15:55 Approved by: Kalyan Peña M.D. on 10/24/2019 at 15:56
== END ==
PROVIDERS: PCP Family Medicine; Referring Provider Family Medicine; Visit Provider Family Medicine
DX: M54.5 Low back pain (principal); M43.17 Spondylolisthesis, lumbosacral region
CPT/HCPCS: 72110

== ENCOUNTER → 2019-12-16 14:54 | Outpatient (CLI) | payer OTHER, MEDICAID, SELFPAY ==
[2019-12-19 07:41] LABS: COVID19 Sendout Not Detected (Not Detect)
== END ==
PROVIDERS: PCP Family Medicine; Visit Provider Physician Assistant
DX: Z11.59 Encounter for screening for other viral diseases (principal)
CPT/HCPCS: 87635; C9803

== ENCOUNTER 2019-12-23 12:45 | Outpatient (RCR) | payer OTHER, MEDICAID, SELFPAY ==
--- NOTE | 2019-11-30 08:56 | PT.OIE ---
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) Kidney stones (Resolved 2008) Migraines (Chronic) Osteoarthritis (Acute) Osteoporosis (Chronic) Other emphysema (Chronic 01/09/15) Pernicious anemia (Chronic) Spondylolysis with spondylolisthesis (Chronic) Tear of rotator cuff (Chronic 08/31/14) Past Surgical History (Last Reviewed 08/20/18 @ 12:19 by Jacobo Hammond MD) Status post laparoscopy (08/18/14) Status post tubal ligation Visit Care Team Role Provider Type Donta Shay DO Primary Care Provider Physician Specialty: Family Practice Address: [address] [place] [address] Email: [email or web address] Attending Provider Advanced Strap Sewer Referring Provider Specialty: Family Practice Address: [address] [place] [address] Email: [email or web address] Physical Therapy Initial Evaluation PT-OP-A Visit Information Start: 11/30/19 07:42 Freq: Status: Active Protocol: Document 11/30/19 07:30 AMB (Rec: 11/30/19 08:47 AMB [email or web address]) Out-Patient Physical Therapy Visit Information Visit Information Visit Type Initial Evaluation Visit Start Time 07:30 Visit Stop Time 08:15 Total Visit Minutes 45 Visit Number 1 PT-OP-B Current Condition Start: 11/30/19 07:42 Freq: Status: Active Protocol: Document 11/30/19 07:30 AMB (Rec: 11/30/19 07:53 AMB [id number]) Current Condition History of Current Condition Onset Date August 13, 2019 Current Complaints R groin pain s/p fall History of Current Condition Pt fell and jammed her right leg on the august. Driving, walking, sitting, standing increases the pain, right groin pain is constant. Describes constant fatigue. States she has inflammation and arthritis all over her body. Has had a difficult time finding consistent housing. Denies recent falls other than the one where she injured herself. Treatment Goals Patient/Caregiver Goals Reduce pain in groin Prior Functional Status Baseline Function- ADL's Modified Independent Baseline Function- Mobility Modified Independent Current Functional Impairments (Reported) Functional Limitations- ADL's Difficulty driving, sitting, standing for any length of time Personal Factors Other Personal Factors That May Effect Osteoporosis, history of Therapy/Recovery difficulty having consistent housing (was previously camping for extended periods of time) PT-OP-F Manual Assessment Start: 11/30/19 07:42 Freq: Status: Active Protocol: Document 11/30/19 07:30 AMB (Rec: 11/30/19 08:47 AMB [email or web address]) Manual Assessments Soft Tissue Assessment Soft Tissue Mobility Assessment Tenderness at right groin Joint Mobility Assessment Joint Mobility Assessment Good joint mobility with hip posterior glides PT-OP-K Range of Motion Start: 11/30/19 07:42 Freq: Status: Active Protocol: Document 11/30/19 07:30 AMB (Rec: 11/30/19 08:47 AMB [email or web address]) Hip Goniometric Range of Motion Hip Right Passive Testing Position Supine Straight Leg Raise 70 Internal Rotation 45 External Rotation 45 PT-OP-M Strength Start: 11/30/19 07:42 Freq: Status: Active Protocol: Document 11/30/19 07:30 AMB (Rec: 11/30/19 08:47 AMB [email or web address]) Hip Strength Hip Manual Muscle Testing Left Flexion (L2) 4 Good Extension (S1) 4+ Good+ Abduction 4 Good Adduction 4 Good Right Flexion (L2) 4- Good- Extension (S1) 4+ Good+ Abduction 4 Good Adduction 4- Good- PT-OP-Q Treatments Start: 11/30/19 07:42 Freq: Status: Active Protocol: Document 11/30/19 07:30 AMB (Rec: 11/30/19 08:47 AMB [email or web address]) Therapeutic Exercises Supine Exercises 1 Supine Exercise Name roll out Side bilateral Resistance #2 latex free Reps/Minutes 5 Comments vc TA and pelvic floor PT-OP-T Assessment and Plan Start: 11/30/19 07:42 Freq: Status: Active Protocol: Document 11/30/19 07:30 AMB (Rec: 11/30/19 08:47 AMB [email or web address]) Physical Therapy Assessment Rehab Potential Rehabilitation Potential Good Evaluation Complexity Number of Personal Factors/Comorbidities 1-2 Number of Body Systems Impaired 4 or More Clinical Presentation at Evaluation Evolving Impairments Impairments Functional Activities, Functional Mobility,Pain,Soft Tissue Mobility,Strength Goals Two Impairment Strength Short Term Goal (STG) Jennifer will be independent and consistent with her home exercise program. STG Duration 4 weeks Alf Goal (LTG) Jennifer will improve her hip strength to 4+/5 in all planes so that she has the strength to move from sit to stand easily. LTG Duration 8 weeks One Impairment Pain Short Term Goal (STG) Jennifer will walk for 6 minutes with right hip/groin pain of 4/10 or less. STG Duration 4 weeks Alf Goal (LTG) Jennifer will lighting engineering technician her kitchen to cook for 15 minutes with hip/groin pain of 4/10 or less. LTG Duration 8 weeks Assessment Summary Assessment Emma attended physical therapy 15 minutes late, so unfortunately we were not able to do a complete assessment of all of her pain complaints. We focused on her recent injury of her right groin after falling in August. She has maintained her hip ROM well, but does have weakness with both hip flexion and adduction. She denies multiple fall history, but would benefit from gait evaluation. Her chronic pain complicates her rehabilitation and she will benefit from a gentle approach to therapy. No internal assessment performed today as pt denies any incontinence or internal pelvic pain. Physical Therapy Plan Frequency and Duration Frequency of Treatment 2x/Week Duration of Treatment 8 weeks Plan of Care Start Date 11/30/19 Plan of Care End Date 01/25/20 Therapeutic Interventions Therapeutic Interventions Gait Training,Home Exercise Program,Manual Therapy, Neuromuscular Re-education, Self-Care/Home Management, Therapeutic Activities, Therapeutic Exercises Modalities Cold Pack/Ice Massage,Electric Stimulation,Hot Packs Next Visit Focus/Plan Next Note Type Treatment Note Next Visit Plan Assess gait/balance, low back
--- NOTE | 2019-11-30 08:56 | PT.OPPOC ---
Physical, Occupational & Speech Therapy At [facility] Current Diagnoses Pain in other specified joint (11/30/19) Low back pain (11/30/19) Pelvic and perineal pain (11/30/19) Difficulty in walking, not elsewhere classified (11/30/19) Visit Care Team Role Provider Type Donta Shay DO Primary Care Provider Physician Specialty: [facility] Address: [address] [place] [address], [id number] Email: [email or web address] Management ServicesMet[facility] Health, [facility] DERIC Khan Attending Provider Advanced It Security Administrator Referring Provider Specialty: [facility] Address: [address] [place] [address], [id number] Email: [email or web address] Plan Of Care PT-OP-T Assessment and Plan Start: 11/30/19 07:42 Freq: Status: Active Protocol: Document 11/30/19 07:30 AMB (Rec: 11/30/19 08:47 AMB [email or web address]) Physical Therapy Assessment Rehab Potential Rehabilitation Potential Good Evaluation Complexity Number of Personal Factors/Comorbidities 1-2 Number of Body Systems Impaired 4 or More Clinical Presentation at Evaluation Evolving Impairments Impairments Functional Activities, Functional Mobility,Pain,Soft Tissue Mobility,Strength Goals Two Impairment Strength Short Term Goal (STG) Jennifer will be independent and consistent with her home exercise program. STG Duration 4 weeks Interface Engineer Goal (LTG) Jennifer will improve her hip strength to 4+/5 in all planes so that she has the strength to move from sit to stand easily. LTG Duration 8 weeks One Impairment Pain Short Term Goal (STG) Jennifer will walk for 6 minutes with right hip/groin pain of 4/10 or less. STG Duration 4 weeks Interface Engineer Goal (LTG) Jennifer will latrine cleaner her kitchen to cook for 15 minutes with hip/groin pain of 4/10 or less. LTG Duration 8 weeks Assessment Summary Assessment Emma attended physical therapy 15 minutes late, so unfortunately we were not able to do a complete assessment of all of her pain complaints. We focused on her recent injury of her right groin after falling in August. She has maintained her hip ROM well, but does have weakness with both hip flexion and adduction. She denies multiple fall history, but would benefit from gait evaluation. Her chronic pain complicates her rehabilitation and she will benefit from a gentle approach to therapy. No internal assessment performed today as pt denies any incontinence or internal pelvic pain. Physical Therapy Plan Frequency and Duration Frequency of Treatment 2x/Week Duration of Treatment 8 weeks Plan of Care Start Date 11/30/19 Plan of Care End Date 01/25/20 Therapeutic Interventions Therapeutic Interventions Gait Training,Home Exercise Program,Manual Therapy, Neuromuscular Re-education, Self-Care/Home Management, Therapeutic Activities, Therapeutic Exercises Modalities Cold Pack/Ice Massage,Electric Stimulation,Hot Packs Next Visit Focus/Plan Next Note Type Treatment Note Next Visit Plan Assess gait/balance, low back Plan of Care Dates Plan of Care Start Date 11/30/19 Plan of Care End Date 01/25/20 Electronically Signed by: Katie Guajardo, PT 11/30/19 0856 Please Sign and Return: I have reviewed this Plan of Care and certify that the skilled therapy services above are required to meet the patient?s needs. Physician Signature Date Printed Name and Credentials Clinical Instructor Signature Printed Name and Credentials
--- NOTE | 2019-12-09 14:11 | PT.OTN ---
Current Diagnoses Pain in other specified joint (12/09/19) Low back pain (12/09/19) Pelvic and perineal pain (12/09/19) Difficulty in walking, not elsewhere classified (12/09/19) Physical Therapy Treatment Note PT-OP-A Visit Information Start: 11/30/19 07:42 Freq: Status: Active Protocol: Document 12/09/19 13:32 AMB (Rec: 12/09/19 13:59 AMB [id number]) Out-Patient Physical Therapy Visit Information Visit Information Visit Type Treatment Note Visit Start Time 13:32 Visit Stop Time 14:15 Total Visit Minutes 43 Visit Number 2 PT-OP-B Current Condition Start: 11/30/19 07:42 Freq: Status: Active Protocol: Document 11/30/19 07:30 AMB (Rec: 11/30/19 07:53 AMB [id number]) Current Condition History of Current Condition Onset Date August 13, 2019 Current Complaints R groin pain s/p fall History of Current Condition Pt fell and jammed her right leg on the august. Driving, walking, sitting, standing increases the pain, right groin pain is constant. Describes constant fatigue. States she has inflammation and arthritis all over her body. Has had a difficult time finding consistent housing. Denies recent falls other than the one where she injured herself. Treatment Goals Patient/Caregiver Goals Reduce pain in groin Prior Functional Status Baseline Function- ADL's Modified Independent Baseline Function- Mobility Modified Independent Current Functional Impairments (Reported) Functional Limitations- ADL's Difficulty driving, sitting, standing for any length of time Personal Factors Other Personal Factors That May Effect Osteoporosis, history of Therapy/Recovery difficulty having consistent housing (was previously camping for extended periods of time) PT-OP-C Subjective Start: 11/30/19 07:42 Freq: Status: Active Protocol: Document 12/09/19 13:32 AMB (Rec: 12/09/19 13:59 AMB [id number]) OP-PT Subjective Patient Comments Patient Comments Emma is noticing some improvement with groin sx. She reports having a migraine today. PT-OP-F Manual Assessment Start: 11/30/19 07:42 Freq: Status: Active Protocol: Document 11/30/19 07:30 AMB (Rec: 11/30/19 08:47 AMB [email or web address]) Manual Assessments Soft Tissue Assessment Soft Tissue Mobility Assessment Tenderness at right groin Joint Mobility Assessment Joint Mobility Assessment Good joint mobility with hip posterior glides PT-OP-K Range of Motion Start: 11/30/19 07:42 Freq: Status: Active Protocol: Document 11/30/19 07:30 AMB (Rec: 11/30/19 08:47 AMB [email or web address]) Hip Goniometric Range of Motion Hip Right Passive Testing Position Supine Straight Leg Raise 70 Internal Rotation 45 External Rotation 45 PT-OP-M Strength Start: 11/30/19 07:42 Freq: Status: Active Protocol: Document 11/30/19 07:30 AMB (Rec: 11/30/19 08:47 AMB [email or web address]) Hip Strength Hip Manual Muscle Testing Left Flexion (L2) 4 Good Extension (S1) 4+ Good+ Abduction 4 Good Adduction 4 Good Right Flexion (L2) 4- Good- Extension (S1) 4+ Good+ Abduction 4 Good Adduction 4- Good- PT-OP-Q Treatments Start: 11/30/19 07:42 Freq: Status: Active Protocol: Document 12/09/19 13:32 AMB (Rec: 12/09/19 13:59 AMB [id number]) Therapeutic Exercises Supine Exercises 7 Supine Exercise Name MET for L ASIS high Reps/Minutes 30x2 6 Supine Exercise Name hip flexor stretch Reps/Minutes 30x2 5 Supine Exercise Name piriformis stretch Reps/Minutes 30x2 4 Supine Exercise Name adductor stretch Reps/Minutes 30x2 3 Supine Exercise Name hamstring stretch Reps/Minutes 30x2 2 Supine Exercise Name SLR with TA Side bilateral Reps/Minutes 15 Sidelying Exercises 1 Sidelying Exercise Name clam Side right Reps/Minutes 1 PT-OP-T Assessment and Plan Start: 11/30/19 07:42 Freq: Status: Active Protocol: Document 12/09/19 13:32 AMB (Rec: 12/09/19 13:59 AMB [id number]) Physical Therapy Assessment Assessment Summary Assessment Emma tolerated stretches well , kept core exercises gentle today, but seemed to tolerate in the moment, but will need to assess how she felt after the appointment. Physical Therapy Plan Next Visit Focus/Plan Next Note Type Treatment Note Next Visit Plan Assess gait/ balance
--- NOTE | 2019-12-23 13:25 | PT.OTN ---
Current Diagnoses Pain in other specified joint (12/23/19) Low back pain (12/23/19) Pelvic and perineal pain (12/23/19) Difficulty in walking, not elsewhere classified (12/23/19) Physical Therapy Treatment Note PT-OP-A Visit Information Start: 11/30/19 07:42 Freq: Status: Active Protocol: Document 12/23/19 12:53 AMB (Rec: 12/24/19 13:25 AMB [email or web address]) Out-Patient Physical Therapy Visit Information Visit Information Visit Type Treatment Note Visit Start Time 12:50 Visit Stop Time 13:30 Total Visit Minutes 40 Visit Number 3 PT-OP-B Current Condition Start: 11/30/19 07:42 Freq: Status: Active Protocol: Document 11/30/19 07:30 AMB (Rec: 11/30/19 07:53 AMB [id number]) Current Condition History of Current Condition Onset Date August 13, 2019 Current Complaints R groin pain s/p fall History of Current Condition Pt fell and jammed her right leg on the august. Driving, walking, sitting, standing increases the pain, right groin pain is constant. Describes constant fatigue. States she has inflammation and arthritis all over her body. Has had a difficult time finding consistent housing. Denies recent falls other than the one where she injured herself. Treatment Goals Patient/Caregiver Goals Reduce pain in groin Prior Functional Status Baseline Function- ADL's Modified Independent Baseline Function- Mobility Modified Independent Current Functional Impairments (Reported) Functional Limitations- ADL's Difficulty driving, sitting, standing for any length of time Personal Factors Other Personal Factors That May Effect Osteoporosis, history of Therapy/Recovery difficulty having consistent housing (was previously camping for extended periods of time) PT-OP-C Subjective Start: 11/30/19 07:42 Freq: Status: Active Protocol: Document 12/23/19 12:53 AMB (Rec: 12/24/19 13:25 AMB [email or web address]) OP-PT Subjective Patient Comments Patient Comments Emma states that she is ready to be discharged. Overall she is doing much better, although she still does have her chronic pain complaints, but the acute groin pain has resolved. PT-OP-F Manual Assessment Start: 11/30/19 07:42 Freq: Status: Active Protocol: Document 11/30/19 07:30 AMB (Rec: 11/30/19 08:47 AMB [email or web address]) Manual Assessments Soft Tissue Assessment Soft Tissue Mobility Assessment Tenderness at right groin Joint Mobility Assessment Joint Mobility Assessment Good joint mobility with hip posterior glides PT-OP-K Range of Motion Start: 11/30/19 07:42 Freq: Status: Active Protocol: Document 11/30/19 07:30 AMB (Rec: 11/30/19 08:47 AMB [email or web address]) Hip Goniometric Range of Motion Hip Right Passive Testing Position Supine Straight Leg Raise 70 Internal Rotation 45 External Rotation 45 PT-OP-M Strength Start: 11/30/19 07:42 Freq: Status: Active Protocol: Document 11/30/19 07:30 AMB (Rec: 11/30/19 08:47 AMB [email or web address]) Hip Strength Hip Manual Muscle Testing Left Flexion (L2) 4 Good Extension (S1) 4+ Good+ Abduction 4 Good Adduction 4 Good Right Flexion (L2) 4- Good- Extension (S1) 4+ Good+ Abduction 4 Good Adduction 4- Good- PT-OP-Q Treatments Start: 11/30/19 07:42 Freq: Status: Active Protocol: Document 12/23/19 12:53 AMB (Rec: 12/24/19 13:25 AMB [email or web address]) Therapeutic Exercises Supine Exercises 7 Supine Exercise Name MET for L ASIS high Reps/Minutes 30x2 6 Supine Exercise Name hip flexor stretch Reps/Minutes 30x2 5 Supine Exercise Name piriformis stretch Reps/Minutes 30x2 4 Supine Exercise Name adductor stretch Reps/Minutes 30x2 3 Supine Exercise Name hamstring stretch Reps/Minutes 30x2 Sidelying Exercises 1 Sidelying Exercise Name clam Side right Reps/Minutes 10 Manual Therapy Treatment Soft Tissue Mobilization 2 Body Location R adductor Mobilization Type Myofascial Release,Sustained Pressure 1 Body Location R glute med/piriforms Mobilization Type Sustained Pressure,Trigger Point Release PT-OP-T Assessment and Plan Start: 11/30/19 07:42 Freq: Status: Active Protocol: Document 12/23/19 12:53 AMB (Rec: 12/23/19 13:20 AMB [id number]) Physical Therapy Assessment Goals Two Impairment Strength Short Term Goal (STG) Jennifer will be independent and consistent with her home exercise program. STG Duration MET Half-Way Goal (LTG) Jennifer will improve her hip strength to 4+/5 in all planes so that she has the strength to move from sit to stand easily. LTG Duration NOT MET One Impairment Pain Short Term Goal (STG) Jennifer will walk for 6 minutes with right hip/groin pain of 4/10 or less. STG Duration MET Half-Way Goal (LTG) Jennifer will machine deburrer her kitchen to cook for 15 minutes with hip/groin pain of 4/10 or less. LTG Duration MET Assessment Summary Assessment Emma attends PT stating that her hip/groin pain is much improved and she feels ready for d/c. Overall she has improved energy and is hopeful because she heard that her SSID has been approved. She states that she continues to have her chronic pain issues, but is able to do her HEP and is ready for discharge since the groin pain for which she was coming after the fall this summer is now resolved. Physical Therapy Plan Discharge Physical Therapy Discharge Reasons Patient Request
== END 2020-02-24 08:51 | disposition home or self-care (01) ==
LOC: PHYS 12:45
PROVIDERS: PCP Family Medicine; Referring Provider Nurse Practitioner Family; Visit Provider Nurse Practitioner Family
DX: R10.2 Pelvic and perineal pain (principal); M25.59 Pain in other specified joint; M54.5 Low back pain; R26.2 Difficulty in walking, not elsewhere classified
CPT/HCPCS: 97110; 97140; 97162

== ENCOUNTER → 2020-01-16 13:41 | Outpatient (CLI) | payer OTHER, MEDICAID, SELFPAY | PROVIDERS: PCP Family Medicine; Visit Provider Physician Assistant | DX: N89.8 Other specified noninflammatory disorders of vagina (principal) | CPT/HCPCS: 87210 ==

== ENCOUNTER → 2020-01-20 09:35 | Outpatient (CLI) | payer OTHER, MEDICAID, SELFPAY ==
[2020-01-20 10:47] LABS: Hemoglobin A1C% w Est Avg Glu 5.3 % (4.0-6.0)
[2020-01-20 11:00] LABS: HEMOLYSIS < 15 (0-50); Iron 239 ug/dL (37-170)
[2020-01-20 11:08] LABS: Alanine Aminotransferase 12 IU/L (<35); Albumin 4.5 g/dL (3.5-5.0); Albumin Globulin Ratio 1.6 (1.0-2.8); Alkaline Phosphatase 58 U/L (38-126); Aspartate Aminotransferase 26 IU/L (14-36); BUN Creatinine Ratio 23.4 (6-22); Bilirubin Total 0.7 mg/dL (0.2-1.3); Blood Urea Nitrogen 15 mg/dL (7-17); Calcium 9.7 mg/dL (8.4-10.2); Carbon Dioxide 29 mmol/L (22-32); Chloride 106 mmol/L (98-107); Estimated Glomerular Filt Rate > 60.0 mL/min (>60); Globulin 2.9 g/dL (1.7-4.1); Glucose 100 mg/dL (80-110); HEMOLYSIS < 15 (0-50); Potassium 3.9 mmol/L (3.4-5.1); Sodium 140 mmol/L (137-145); Total Protein 7.4 g/dL (6.3-8.2)
[2020-01-20 11:12] LABS: Percent Iron Saturation 67 % (15-50); Total Iron Binding Capacity 357 ug/dL (265-497); Transferrin 287 mg/dL (206-381)
[2020-01-20 11:50] LABS: Vitamin B12 Reflex MMA if <400 240 pg/mL (239-931)
[2020-01-20 12:30] LABS: Add Manual Diff / Slide Review NO; Basophils Absolute Auto 0 /uL (0-100); Eosinophils Absolute Auto 100 /uL (0-450); Eosinophils Percent Auto 1.2 % (2-4); Hematocrit 40.5 % (36-46); Hemoglobin 13.8 g/dL (12.0-16.0); Lymphocytes Absolute Auto 2000 /uL (1100-4500); Lymphocytes Percent Auto 41.2 % (25-40); Mean Corpuscular HGB Conc 34.2 % (30-36); Mean Corpuscular Hemoglobin 33.2 PG (26-34); Monocytes Absolute Auto 400 /uL (0-900); Monocytes Percent Auto 7.3 % (3-14); Neutrophils Absolute Auto 2400 /uL (1500-7000); Neutrophils Percent Auto 49.3 % (50-75); Platelet Count 297 X10^3/uL (150-400); Red Blood Cell Count 4.17 X10^6/uL (4.0-5.2); Red Cell Distribution Width 13.1 % (11.6-14.8); White Blood Cell Count 4.8 X10^3/uL (4.5-11.0)
[2020-01-22 12:11] LABS: Methylmalonic Acid,Serum 249 nmol/L (0-378)
== END ==
PROVIDERS: PCP Family Medicine; Referring Provider Family Medicine; Visit Provider Family Medicine
DX: D51.0 Vitamin B12 deficiency anemia due to intrinsic factor deficiency (principal); K22.70 Barrett's esophagus without dysplasia
CPT/HCPCS: 36415; 80053; 82607; 83036; 83540; 83550; 83921; 85025

== ENCOUNTER → 2020-09-21 14:45 | Outpatient (CLI) | payer OTHER, MEDICAID, SELFPAY ==
--- NOTE | 2020-09-21 14:46 | DI.RAD.S_ITS ---
PROCEDURE: XR LUMBAR SPINE 2-3V INDICATIONS: pain TECHNIQUE: 3 views of the lumbar spine were acquired. COMPARISON: [facility], CR, XR LUMBAR SPINE MIN 4V, 10/24/2019, 13:52. FINDINGS: Bones: No acute fracture. Multilevel degenerative endplate sclerosis and spurring. Diffuse facet arthropathy. Grade 2 anterolisthesis of L5 on S1 is unchanged. Severe narrowing of the L5-S1 disc space. Lucency projects in the region of the L5 pars interarticularis. There is mild narrowing of the remaining lumbar disc spaces. Minimal dextrocurvature Soft tissues: Overlying bowel gas pattern is normal. No suspicious soft tissue calcifications. IMPRESSION: Overall, no interval change since 10/24/19. Redemonstrated L5 pars defects and L5-S1 spondylolisthesis. Dictated by: Kalyan Peña M.D. on 09/21/2020 at 16:02 Approved by: Kalyan Peña M.D. on 09/21/2020 at 16:03
--- NOTE | 2020-09-21 14:46 | DI.RAD.S_ITS ---
PROCEDURE: XR THORACIC SPINE 2V INDICATIONS: pain TECHNIQUE: 2 views of the thoracic spine were acquired. COMPARISON: Merged With [facility], CT, THORAX WITHOUT CONTRAST, 06/21/2014, 11:12. FINDINGS: Bones: There is mild superior endplate depression of the T4 vertebral body that may represent a mild age-indeterminate compression fracture. No suspicious bony lesions. 12 pairs of ribs are noted, and appear intact where visualized. Soft tissues: No paravertebral stripe thickening. IMPRESSION: Mild age-indeterminate compression fracture of the T4 vertebral body. Dictated by: Boni Cuevas M.D. on 09/21/2020 at 15:44 Approved by: Boni Cuevas M.D. on 09/21/2020 at 15:48
== END ==
PROVIDERS: PCP Nurse Practitioner Family; Referring Provider Nurse Practitioner Family; Visit Provider Nurse Practitioner Family
DX: M54.6 Pain in thoracic spine (principal); M48.54XA Collapsed vertebra, not elsewhere classified, thoracic region, initial encounter for fracture; M54.5 Low back pain; M47.816 Spondylosis without myelopathy or radiculopathy, lumbar region; M43.17 Spondylolisthesis, lumbosacral region
CPT/HCPCS: 72070; 72100

== ENCOUNTER 2020-11-21 13:00 | Outpatient (RCR) | payer OTHER, MEDICAID, SELFPAY ==
--- NOTE | 2020-09-25 16:00 | PT.OPPOC ---
Physical, Occupational & Speech Therapy At [facility] Current Diagnoses Low back pain (09/25/20) Dorsalgia, unspecified (09/25/20) Difficulty in walking, not elsewhere classified (09/25/20) Visit Care Team Role Provider Type DERIC Khan Attending Provider Advanced Hose Tubing Backer Primary Care Provider Referring Provider Specialty: Family Practice Address: [address] [place] [address], [id number] Email: [email or web address] Plan Of Care PT-OP-T Assessment and Plan Start: 09/25/20 13:12 Freq: Status: Active Protocol: Document 09/25/20 16:00 AW (Rec: 09/26/20 12:33 AW [email or web address]) Physical Therapy Assessment Rehab Potential Rehabilitation Potential Good Evaluation Complexity Number of Personal Factors/Comorbidities 1-2 Number of Body Systems Impaired 3 Clinical Presentation at Evaluation Evolving Impairments Impairments Balance,Functional Activities, Functional Mobility,Gait,Pain, Soft Tissue Mobility,Strength Other Concerns Fall Risk Deferred dynamic balance assessment. Will follow up 2nd visit. Barriers to Rehabilitation Chronicity of deficits may affect rehab outcomes. Goals Four Impairment falls Half-Way Goal (LTG) Pt will score WNL on Dynamic Gait Index to demonstrate reduction in falls risk. LTG Duration 2 months - 11/25/20 Three Impairment pain limits activity Half-Way Goal (LTG) Pt will walk her dogs 20 minutes without increase in baseline pain LTG Duration 2 months - 11/25/20 Two Impairment lacks HEP Short Term Goal (STG) Pt will be independent with HEP for pain reduction and to support therapy services provided in clinic. STG Duration 4 weeks - 10/23/20 Half-Way Goal (LTG) Pt will be independent with maintenance HEP to prevent and mange her pain. LTG Duration 2 months - 11/25/20 One Impairment chronic pain Short Term Goal (STG) Pt will be educated in physiologic quieting techniques for improved self- efficacy. STG Duration 4 weeks - 10/23/20 Half-Way Goal (LTG) Pt will score in moderate risk category on Oniel STarT Back screening tool to demonstate reduced fear avoidance and improved self-efficacy. LTG Duration 2 months - 11/25/20 Assessment Summary Assessment Emma attends outpatient physical therapy with complaints of chronic low back and bilateral hip pain which has recently worsened. Hip ROM is good on assessment but pt does have weakness in both hips. She reports at least three falls in the past one year. Dynamic balance assessment will be undertaken at next visit. Pt's chronic pain and high score on Oniel STarT Back may complicate her rehabilitation. She would benefit from a gentle approach to therapy which is expected to improve the irritability of her symptoms and improve her ability to participate in daily activities such as walking her dogs. Physical Therapy Plan Frequency and Duration Frequency of Treatment 1-2x/week Duration of Treatment 2 months Plan of Care Start Date 09/25/20 Plan of Care End Date 11/25/20 Therapeutic Interventions Therapeutic Interventions Balance Training,Gait Training ,Home Exercise Program,Manual Therapy,Neuromuscular Re- education,Self-Care/Home Management,Therapeutic Activities,Therapeutic Exercises Modalities Cold Pack/Ice Massage,Electric Stimulation,Hot Packs Next Visit Focus/Plan Next Note Type Treatment Note Next Visit Plan DGI or FGA; initiate gentle supine ther ex; Plan of Care Plan of Care Start Date 09/25/20 Plan of Care End Date 11/25/20 Electronically Signed by: Johana Valdes, PT 09/26/20 [id number] Please Sign and Return: I have reviewed this Plan of Care and certify that the skilled therapy services above are required to meet the patient?s needs. Physician Signature Date Printed Name and Credentials Clinical Instructor Signature Printed Name and Credentials
--- NOTE | 2020-09-25 16:00 | PT.OIE ---
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) Kidney stones (2008) Mid back pain Migraines Osteoarthritis Osteoporosis Other emphysema (01/09/15) Pernicious anemia Spondylolysis with spondylolisthesis Tear of rotator cuff (08/31/14) Vaginal irritation Past Surgical History (Last Reviewed 08/20/18 @ 12:19 by Jacobo Hammond MD) Status post laparoscopy (08/18/14) Status post tubal ligation Visit Care Team Role Provider Type DERIC Khan Attending Provider Advanced Vascular Radiologist Primary Care Provider Referring Provider Specialty: [facility] Practice Address: [address] [place] [address] Email: [email or web address] Physical Therapy Initial Evaluation PT-OP-A Visit Information Start: 09/25/20 13:12 Freq: Status: Active Protocol: Document 09/25/20 16:00 AW (Rec: 09/25/20 17:20 AW [email or web address]) Out-Patient Physical Therapy Visit Information Visit Information Visit Type Initial Evaluation Visit Start Time 15:15 Visit Stop Time 16:00 Total Visit Minutes 45 Visit Number 1 Number of FRUIT INSPECTOR Visits 0 Evaluation Information Evaluation Date 09/25/20 Precautions Precautions osteoporosis PT-OP-B Current Condition Start: 09/25/20 13:12 Freq: Status: Active Protocol: Document 09/25/20 16:00 AW (Rec: 09/25/20 13:59 AW [email or web address]) Current Condition History of Current Condition Onset Date chronic with recent exacerbation Current Complaints low back pain; bilateral hip pain (R worse than L); difficulty walking History of Current Condition Pt deals with chronic low back and bilteral hip pain. She states she can tolerate a lot of pain but it is getting worse. Activity seems to increase her pain but pt remains active - in part due to personality and in part due to many responsibilities including her dogs. Pain wakes her up and interrupts her sleep. She has difficulty with functional tasks such as vacuuming, bending over to clean a toilet. She reports three falls since late last year; she has fallen on her hips and on her tailbone. Pt states she prefers not to wear shoes and complains of hot spots when she does wear shoes. Pt has had some housing insecurity in the past but is currently living at her sister 's house which has three levels. Pt will do stairs but I pay for it afterward. CBD oils and creams help but no relief lasts very long. Pt reports fair sleep hygiene and states her dogs are good for keeping a schedule. 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 Prior Treatments and Tests 09/21/20 lumbar spine x-ray: No acute fracture. Multilevel degenerative endplate sclerosis and spurring. Diffuse facet arthropathy. Grade 2 anterolisthesis of L5 on S1 is unchanged. Severe narrowing of the L5-S1 disc space. Lucency projects in the region of the L5 pars interarticularis. There is mild narrowing of the remaining lumbar disc spaces. Minimal dextrocurvature. 09/21/20 Thoracic spine x-ray: Mild age-indeterminate compression fracture of the T4 vertebral body. PT for right groin pain in 2019. R shoulder surgery. Treatment Goals Patient/Caregiver Goals Pt would like to walk her dogs with more confidence. She would like to reduce or learn to manage her pain. Personal Factors Other Personal Factors That May Effect Osteoporosis, history of Therapy/Recovery housing insecurity (was previously camping for extended periods of time) but now stays with her sister. PT-OP-C Subjective Start: 09/25/20 13:12 Freq: Status: Active Protocol: Document 09/25/20 16:00 AW (Rec: 09/25/20 17:20 AW [email or web address]) Patient Questionnaires Oswestry Low Back Index Oswestry Score 58 Oswestry Impairment 40 to 59% Impaired (Score 40- 59) Other Questionnaire Name and Score [facility] Back Screening Tool: 10/18 indicating high risk of chronicity, catastrophizing, fear avoidance. OP-PT Pain Assessment Pain Assessment Grid Paper Pain Assessment Grid Completed Yes: Copy scanned to EMR PT-OP-D Balance Start: 09/25/20 13:12 Freq: Status: Active Protocol: Document 09/25/20 16:00 AW (Rec: 09/25/20 17:20 AW [email or web address]) OP-PT Balance Assessment Sitting Balance Static Sitting Balance Ability Normal Dynamic Sitting Balance Ability Good Standing Balance Static Standing Balance Ability Good Dynamic Standing Balance Ability Fair Device Used no AD Mckeon Fall Scale Copyright Permission PT-OP-F Manual Assessment Start: 09/25/20 13:12 Freq: Status: Active Protocol: Document 09/25/20 16:00 AW (Rec: 09/25/20 17:31 AW [email or web address]) Manual Assessments Soft Tissue Assessment Soft Tissue Mobility Assessment Tenderness over bilateral greater trochanters and right groin Joint Mobility Assessment Joint Mobility Assessment Fair mobility with hip posterior glides. PT-OP-K Range of Motion Start: 09/25/20 13:12 Freq: Status: Active Protocol: Document 09/25/20 16:00 AW (Rec: 09/25/20 17:31 AW [email or web address]) Lumbar Spine Range of Motion Lumbar Spine Active Testing Position Standing Flexion 65 Extension 15 Comments Lateral flexion with fingertips to knee joint bilaterally. Rotation WNL without pain Hip Goniometric Range of Motion Hip Passive Testing Position Supine Straight Leg Raise 75 Internal Rotation 45 External Rotation 45 Comments pain with SLR RLE Hip ROM Limitations Hip ROM Limitations Pain PT-OP-L Special Tests Start: 09/25/20 13:12 Freq: Status: Active Protocol: Document 09/25/20 16:00 AW (Rec: 09/25/20 17:31 AW [email or web address]) Special Tests Hip Special Tests Michael Test Results thigh parallel to floor bilaterally Scour Test Test Results positive bilaterally Comments LLE scour results in achey pain in both hips Knee Special Tests Yolande's Test Test Results right positive Comments thigh just past horizontal Neural Special Tests- Lower Body Sciatic Nerve Tension Test Results negative bilaterally PT-OP-M Strength Start: 09/25/20 13:12 Freq: Status: Active Protocol: Document 09/25/20 16:00 AW (Rec: 09/25/20 17:32 AW [email or web address]) Hip Strength Hip Manual Muscle Testing Right Flexion (L2) 4- Good- Extension (S1) 4 Good Abduction 4 Good Adduction 4 Good Left Flexion (L2) 4 Good Extension (S1) 4 Good Abduction 4 Good Adduction 4 Good External Rotation 4 Good Internal Rotation 4 Good PT-OP-Q Treatments Start: 09/25/20 13:12 Freq: Status: Active Protocol: Document 09/25/20 16:00 AW (Rec: 09/25/20 17:36 AW [email or web address]) Therapeutic Activity Therapeutic Activity diaphragmatic breathing Name diaphragmatic breathing Reps/Minutes 9 minutes Comments In supine position, cued pt to breathe into belly for physiologic quieting. Educated pt on pain science and sympathetic nervous system impact on pain intensity. Self-Care/Home Management Treatment Education Other Education Pain science education including sleep hygiene and breath awareness. PT-OP-T Assessment and Plan Start: 09/25/20 13:12 Freq: Status: Active Protocol: Document 09/25/20 16:00 AW (Rec: 09/26/20 12:33 AW [email or web address]) Physical Therapy Assessment Rehab Potential Rehabilitation Potential Good Evaluation Complexity Number of Personal Factors/Comorbidities 1-2 Number of Body Systems Impaired 3 Clinical Presentation at Evaluation Evolving Impairments Impairments Balance,Functional Activities, Functional Mobility,Gait,Pain, Soft Tissue Mobility,Strength Other Concerns Fall Risk Deferred dynamic balance assessment. Will follow up 2nd visit. Barriers to Rehabilitation Chronicity of deficits may affect rehab outcomes. Goals Four Impairment falls Mcfp Goal (LTG) Pt will score WNL on Dynamic Gait Index to demonstrate reduction in falls risk. LTG Duration 2 months - 11/25/20 Three Impairment pain limits activity Mcfp Goal (LTG) Pt will walk her dogs 20 minutes without increase in baseline pain LTG Duration 2 months - 11/25/20 Two Impairment lacks HEP Short Term Goal (STG) Pt will be independent with HEP for pain reduction and to support therapy services provided in clinic. STG Duration 4 weeks - 10/23/20 Motor Bike Mechanic Goal (LTG) Pt will be independent with maintenance HEP to prevent and mange her pain. LTG Duration 2 months - 11/25/20 One Impairment chronic pain Short Term Goal (STG) Pt will be educated in physiologic quieting techniques for improved self- efficacy. STG Duration 4 weeks - 10/23/20 Mcfp Goal (LTG) Pt will score in moderate risk category on Oniel STarT Back screening tool to demonstate reduced fear avoidance and improved self-efficacy. LTG Duration 2 months - 11/25/20 Assessment Summary Assessment Emma attends outpatient physical therapy with complaints of chronic low back and bilateral hip pain which has recently worsened. Hip ROM is good on assessment but pt does have weakness in both hips. She reports at least three falls in the past one year. Dynamic balance assessment will be undertaken at next visit. Pt's chronic pain and high score on Oniel STarT Back may complicate her rehabilitation. She would benefit from a gentle approach to therapy which is expected to improve the irritability of her symptoms and improve her ability to participate in daily activities such as walking her dogs. Physical Therapy Plan Frequency and Duration Frequency of Treatment 1-2x/week Duration of Treatment 2 months Plan of Care Start Date 09/25/20 Plan of Care End Date 11/25/20 Therapeutic Interventions Therapeutic Interventions Balance Training,Gait Training ,Home Exercise Program,Manual Therapy,Neuromuscular Re- education,Self-Care/Home Management,Therapeutic Activities,Therapeutic Exercises Modalities Cold Pack/Ice Massage,Electric Stimulation,Hot Packs Next Visit Focus/Plan Next Note Type Treatment Note Next Visit Plan DGI or FGA; initiate gentle supine ther ex;
--- NOTE | 2020-09-25 16:00 | PT.OPPOC ---
Physical, Occupational & Speech Therapy At [facility] Current Diagnoses Low back pain (09/25/20) Dorsalgia, unspecified (09/25/20) Difficulty in walking, not elsewhere classified (09/25/20) Visit Care Team Role Provider Type DERIC Khan Attending Provider Advanced Saw Operator Primary Care Provider Referring Provider Specialty: Family Practice Address: [address] [place] [address], [id number] Email: [email or web address] Plan Of Care PT-OP-T Assessment and Plan Start: 09/25/20 13:12 Freq: Status: Active Protocol: Document 09/25/20 16:00 AW (Rec: 09/26/20 12:33 AW [email or web address]) Physical Therapy Assessment Rehab Potential Rehabilitation Potential Good Evaluation Complexity Number of Personal Factors/Comorbidities 1-2 Number of Body Systems Impaired 3 Clinical Presentation at Evaluation Evolving Impairments Impairments Balance,Functional Activities, Functional Mobility,Gait,Pain, Soft Tissue Mobility,Strength Other Concerns Fall Risk Deferred dynamic balance assessment. Will follow up 2nd visit. Barriers to Rehabilitation Chronicity of deficits may affect rehab outcomes. Goals Four Impairment falls Group Home Goal (LTG) Pt will score WNL on Dynamic Gait Index to demonstrate reduction in falls risk. LTG Duration 2 months - 11/25/20 Three Impairment pain limits activity Group Home Goal (LTG) Pt will walk her dogs 20 minutes without increase in baseline pain LTG Duration 2 months - 11/25/20 Two Impairment lacks HEP Short Term Goal (STG) Pt will be independent with HEP for pain reduction and to support therapy services provided in clinic. STG Duration 4 weeks - 10/23/20 Group Home Goal (LTG) Pt will be independent with maintenance HEP to prevent and mange her pain. LTG Duration 2 months - 11/25/20 One Impairment chronic pain Short Term Goal (STG) Pt will be educated in physiologic quieting techniques for improved self- efficacy. STG Duration 4 weeks - 10/23/20 Group Home Goal (LTG) Pt will score in moderate risk category on Oniel STarT Back screening tool to demonstate reduced fear avoidance and improved self-efficacy. LTG Duration 2 months - 11/25/20 Assessment Summary Assessment Emma attends outpatient physical therapy with complaints of chronic low back and bilateral hip pain which has recently worsened. Hip ROM is good on assessment but pt does have weakness in both hips. She reports at least three falls in the past one year. Dynamic balance assessment will be undertaken at next visit. Pt's chronic pain and high score on Oniel STarT Back may complicate her rehabilitation. She would benefit from a gentle approach to therapy which is expected to improve the irritability of her symptoms and improve her ability to participate in daily activities such as walking her dogs. Physical Therapy Plan Frequency and Duration Frequency of Treatment 1-2x/week Duration of Treatment 2 months Plan of Care Start Date 09/25/20 Plan of Care End Date 11/25/20 Therapeutic Interventions Therapeutic Interventions Balance Training,Gait Training ,Home Exercise Program,Manual Therapy,Neuromuscular Re- education,Self-Care/Home Management,Therapeutic Activities,Therapeutic Exercises Modalities Cold Pack/Ice Massage,Electric Stimulation,Hot Packs Next Visit Focus/Plan Next Note Type Treatment Note Next Visit Plan DGI or FGA; initiate gentle supine ther ex; Plan of Care Plan of Care Start Date 09/25/20 Plan of Care End Date 11/25/20 Electronically Signed by: Johana Valdes, PT 09/26/20 3421 Please Sign and Return: I have reviewed this Plan of Care and certify that the skilled therapy services above are required to meet the patient?s needs. Physician Signature Date Printed Name and Credentials Clinical Instructor Signature Printed Name and Credentials
--- NOTE | 2020-09-27 16:11 | PT.OTN ---
Current Diagnoses Low back pain (09/27/20) Dorsalgia, unspecified (09/27/20) Difficulty in walking, not elsewhere classified (09/27/20) Physical Therapy Treatment Note PT-OP-A Visit Information Start: 09/25/20 13:12 Freq: Status: Active Protocol: Document 09/27/20 16:00 AW (Rec: 09/27/20 16:11 AW [id number]) Out-Patient Physical Therapy Visit Information Visit Information Visit Type Treatment Note Visit Start Time 15:15 Visit Stop Time 16:00 Total Visit Minutes 45 Visit Number 2 Number of FLAKEBOARD LINE TENDER Visits 0 Evaluation Information Evaluation Date 09/25/20 Precautions Precautions osteoporosis PT-OP-B Current Condition Start: 09/25/20 13:12 Freq: Status: Active Protocol: Document 09/25/20 16:00 AW (Rec: 09/25/20 13:59 AW [email or web address]) Current Condition History of Current Condition Onset Date chronic with recent exacerbation Current Complaints low back pain; bilateral hip pain (R worse than L); difficulty walking History of Current Condition Pt deals with chronic low back and bilteral hip pain. She states she can tolerate a lot of pain but it is getting worse. Activity seems to increase her pain but pt remains active - in part due to personality and in part due to many responsibilities including her dogs. Pain wakes her up and interrupts her sleep. She has difficulty with functional tasks such as vacuuming, bending over to clean a toilet. She reports three falls since late last year; she has fallen on her hips and on her tailbone. Pt states she prefers not to wear shoes and complains of hot spots when she does wear shoes. Pt has had some housing insecurity in the past but is currently living at her sister 's house which has three levels. Pt will do stairs but I pay for it afterward. CBD oils and creams help but no relief lasts very long. Pt reports fair sleep hygiene and states her dogs are good for keeping a schedule. 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 Prior Treatments and Tests 09/21/20 lumbar spine x-ray: No acute fracture. Multilevel degenerative endplate sclerosis and spurring. Diffuse facet arthropathy. Grade 2 anterolisthesis of L5 on S1 is unchanged. Severe narrowing of the L5-S1 disc space. Lucency projects in the region of the L5 pars interarticularis. There is mild narrowing of the remaining lumbar disc spaces. Minimal dextrocurvature. 09/21/20 Thoracic spine x-ray: Mild age-indeterminate compression fracture of the T4 vertebral body. PT for right groin pain in 2019. R shoulder surgery. Treatment Goals Patient/Caregiver Goals Pt would like to walk her dogs with more confidence. She would like to reduce or learn to manage her pain. Personal Factors Other Personal Factors That May Effect Osteoporosis, history of Therapy/Recovery housing insecurity (was previously camping for extended periods of time) but now stays with her sister. PT-OP-C Subjective Start: 09/25/20 13:12 Freq: Status: Active Protocol: Document 09/27/20 16:00 AW (Rec: 09/27/20 16:11 AW [id number]) OP-PT Subjective Patient Comments Patient Comments I've had a long day of meetings for SSI but I took my CBD tincture earlier and I'm feeling ok. PT-OP-D Balance Start: 09/25/20 13:12 Freq: Status: Active Protocol: Document 09/25/20 16:00 AW (Rec: 09/25/20 17:20 AW [email or web address]) OP-PT Balance Assessment Sitting Balance Static Sitting Balance Ability Normal Dynamic Sitting Balance Ability Good Standing Balance Static Standing Balance Ability Good Dynamic Standing Balance Ability Fair Device Used no AD Mckeon Fall Scale Copyright Permission PT-OP-F Manual Assessment Start: 09/25/20 13:12 Freq: Status: Active Protocol: Document 09/25/20 16:00 AW (Rec: 09/25/20 17:31 AW [email or web address]) Manual Assessments Soft Tissue Assessment Soft Tissue Mobility Assessment Tenderness over bilateral greater trochanters and right groin Joint Mobility Assessment Joint Mobility Assessment Fair mobility with hip posterior glides. PT-OP-K Range of Motion Start: 09/25/20 13:12 Freq: Status: Active Protocol: Document 09/25/20 16:00 AW (Rec: 09/25/20 17:31 AW [email or web address]) Lumbar Spine Range of Motion Lumbar Spine Active Testing Position Standing Flexion 65 Extension 15 Comments Lateral flexion with fingertips to knee joint bilaterally. Rotation WNL without pain Hip Goniometric Range of Motion Hip Passive Testing Position Supine Straight Leg Raise 75 Internal Rotation 45 External Rotation 45 Comments pain with SLR RLE Hip ROM Limitations Hip ROM Limitations Pain PT-OP-L Special Tests Start: 09/25/20 13:12 Freq: Status: Active Protocol: Document 09/25/20 16:00 AW (Rec: 09/25/20 17:31 AW [email or web address]) Special Tests Hip Special Tests Michael Test Results thigh parallel to floor bilaterally Scour Test Test Results positive bilaterally Comments LLE scour results in achey pain in both hips Knee Special Tests Yolande's Test Test Results right positive Comments thigh just past horizontal Neural Special Tests- Lower Body Sciatic Nerve Tension Test Results negative bilaterally PT-OP-M Strength Start: 09/25/20 13:12 Freq: Status: Active Protocol: Document 09/25/20 16:00 AW (Rec: 09/25/20 17:32 AW [email or web address]) Hip Strength Hip Manual Muscle Testing Right Flexion (L2) 4- Good- Extension (S1) 4 Good Abduction 4 Good Adduction 4 Good Left Flexion (L2) 4 Good Extension (S1) 4 Good Abduction 4 Good Adduction 4 Good External Rotation 4 Good Internal Rotation 4 Good PT-OP-Q Treatments Start: 09/25/20 13:12 Freq: Status: Active Protocol: Document 09/27/20 16:00 AW (Rec: 09/27/20 16:11 AW [id number]) Therapeutic Exercises Supine Exercises SLR Supine Exercise Name SLR Reps/Minutes x8 Comments cued [place], flat back bridge Supine Exercise Name bridge Reps/Minutes 2 x [address], [place] supine clam Supine Exercise Name supine clam Resistance level 2 Equipment Used TB Reps/Minutes 2 x 10 hip adduction squeeze Supine Exercise Name hip adduction squeeze Equipment Used small ball Reps/Minutes 2 x 10 Therapeutic Activity Therapeutic Activity diaphragmatic breathing Name diaphragmatic breathing Comments Incorporated diaphragmatic breathing into ther ex today. Gait Training Gait Activity FGA Description FGA Device Used no AD Level of Assistance SBA Surface level --tile and carpet Distance/Duration 8 min Treatment Focus assessment Comments . See scanned copy PT-OP-T Assessment and Plan Start: 09/25/20 13:12 Freq: Status: Active Protocol: Document 09/27/20 16:00 AW (Rec: 09/27/20 16:11 AW [id number]) Physical Therapy Assessment Goals Four Impairment falls Infantryman Goal (LTG) Pt will score WNL on Dynamic Gait Index to demonstrate reduction in falls risk. LTG Duration 2 months - 11/25/20 Three Impairment pain limits activity Care Home Goal (LTG) Pt will walk her dogs 20 minutes without increase in baseline pain LTG Duration 2 months - 11/25/20 Two Impairment lacks HEP Short Term Goal (STG) Pt will be independent with HEP for pain reduction and to support therapy services provided in clinic. STG Duration 4 weeks - 10/23/20 Infantryman Goal (LTG) Pt will be independent with maintenance HEP to prevent and mange her pain. LTG Duration 2 months - 11/25/20 One Impairment chronic pain Short Term Goal (STG) Pt will be educated in physiologic quieting techniques for improved self- efficacy. STG Duration 4 weeks - 10/23/20 Infantryman Goal (LTG) Pt will score in moderate risk category on Oniel STarT Back screening tool to demonstate reduced fear avoidance and improved self-efficacy. LTG Duration 2 months - 11/25/20 Assessment Summary Assessment Sarah completed Functional Gait Assessment with a score of 21/30 which is well below norms (27/30) for her age- matched peers, indicating increased risk of falls.. She tolerated supine ther ex well today, stating it felt good to get moving with a purpose again. Physical Therapy Plan Frequency and Duration Frequency of Treatment 1-2x/week Duration of Treatment 2 months Plan of Care Start Date 09/25/20 Plan of Care End Date 11/25/20 Therapeutic Interventions Therapeutic Interventions Balance Training,Gait Training ,Home Exercise Program,Manual Therapy,Neuromuscular Re- education,Self-Care/Home Management,Therapeutic Activities,Therapeutic Exercises Modalities Cold Pack/Ice Massage,Electric Stimulation,Hot Packs Next Visit Focus/Plan Next Note Type Treatment Note Next Visit Plan Review initial HEP and progress as able. Initiate standing static balance
--- NOTE | 2020-10-02 11:23 | PT.OTN ---
Current Diagnoses Low back pain (10/02/20) Dorsalgia, unspecified (10/02/20) Difficulty in walking, not elsewhere classified (10/02/20) Physical Therapy Treatment Note PT-OP-A Visit Information Start: 09/25/20 13:12 Freq: Status: Active Protocol: Document 10/02/20 10:32 MA (Rec: 10/02/20 11:23 MA [id number]) Out-Patient Physical Therapy Visit Information Visit Information Visit Type Treatment Note Visit Start Time 10:30 Visit Stop Time 11:10 Total Visit Minutes 40 Visit Number 3 Number of OIL PIPE INSPECTOR Visits 1 Precautions Precautions osteoporosis PT-OP-B Current Condition Start: 09/25/20 13:12 Freq: Status: Active Protocol: Document 09/25/20 16:00 AW (Rec: 09/25/20 13:59 AW [email or web address]) Current Condition History of Current Condition Onset Date chronic with recent exacerbation Current Complaints low back pain; bilateral hip pain (R worse than L); difficulty walking History of Current Condition Pt deals with chronic low back and bilteral hip pain. She states she can tolerate a lot of pain but it is getting worse. Activity seems to increase her pain but pt remains active - in part due to personality and in part due to many responsibilities including her dogs. Pain wakes her up and interrupts her sleep. She has difficulty with functional tasks such as vacuuming, bending over to clean a toilet. She reports three falls since late last year; she has fallen on her hips and on her tailbone. Pt states she prefers not to wear shoes and complains of hot spots when she does wear shoes. Pt has had some housing insecurity in the past but is currently living at her sister 's house which has three levels. Pt will do stairs but I pay for it afterward. CBD oils and creams help but no relief lasts very long. Pt reports fair sleep hygiene and states her dogs are good for keeping a schedule. 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 Prior Treatments and Tests 09/21/20 lumbar spine x-ray: No acute fracture. Multilevel degenerative endplate sclerosis and spurring. Diffuse facet arthropathy. Grade 2 anterolisthesis of L5 on S1 is unchanged. Severe narrowing of the L5-S1 disc space. Lucency projects in the region of the L5 pars interarticularis. There is mild narrowing of the remaining lumbar disc spaces. Minimal dextrocurvature. 09/21/20 Thoracic spine x-ray: Mild age-indeterminate compression fracture of the T4 vertebral body. PT for right groin pain in 2019. R shoulder surgery. Treatment Goals Patient/Caregiver Goals Pt would like to walk her dogs with more confidence. She would like to reduce or learn to manage her pain. Personal Factors Other Personal Factors That May Effect Osteoporosis, history of Therapy/Recovery housing insecurity (was previously camping for extended periods of time) but now stays with her sister. PT-OP-C Subjective Start: 09/25/20 13:12 Freq: Status: Active Protocol: Document 10/02/20 10:32 MA (Rec: 10/02/20 11:23 MA [id number]) OP-PT Subjective Patient Comments Patient Comments I rested this weekend because it was the first weekend without work for me so I did not do my exercises PT-OP-D Balance Start: 09/25/20 13:12 Freq: Status: Active Protocol: Document 09/25/20 16:00 AW (Rec: 09/25/20 17:20 AW [email or web address]) OP-PT Balance Assessment Sitting Balance Static Sitting Balance Ability Normal Dynamic Sitting Balance Ability Good Standing Balance Static Standing Balance Ability Good Dynamic Standing Balance Ability Fair Device Used no AD Mckeon Fall Scale Copyright Permission PT-OP-F Manual Assessment Start: 09/25/20 13:12 Freq: Status: Active Protocol: Document 09/25/20 16:00 AW (Rec: 09/25/20 17:31 AW [email or web address]) Manual Assessments Soft Tissue Assessment Soft Tissue Mobility Assessment Tenderness over bilateral greater trochanters and right groin Joint Mobility Assessment Joint Mobility Assessment Fair mobility with hip posterior glides. PT-OP-K Range of Motion Start: 09/25/20 13:12 Freq: Status: Active Protocol: Document 09/25/20 16:00 AW (Rec: 09/25/20 17:31 AW [email or web address]) Lumbar Spine Range of Motion Lumbar Spine Active Testing Position Standing Flexion 65 Extension 15 Comments Lateral flexion with fingertips to knee joint bilaterally. Rotation WNL without pain Hip Goniometric Range of Motion Hip Passive Testing Position Supine Straight Leg Raise 75 Internal Rotation 45 External Rotation 45 Comments pain with SLR RLE Hip ROM Limitations Hip ROM Limitations Pain PT-OP-L Special Tests Start: 09/25/20 13:12 Freq: Status: Active Protocol: Document 09/25/20 16:00 AW (Rec: 09/25/20 17:31 AW [email or web address]) Special Tests Hip Special Tests Michael Test Results thigh parallel to floor bilaterally Scour Test Test Results positive bilaterally Comments LLE scour results in achey pain in both hips Knee Special Tests Yolande's Test Test Results right positive Comments thigh just past horizontal Neural Special Tests- Lower Body Sciatic Nerve Tension Test Results negative bilaterally PT-OP-M Strength Start: 09/25/20 13:12 Freq: Status: Active Protocol: Document 09/25/20 16:00 AW (Rec: 09/25/20 17:32 AW [email or web address]) Hip Strength Hip Manual Muscle Testing Right Flexion (L2) 4- Good- Extension (S1) 4 Good Abduction 4 Good Adduction 4 Good Left Flexion (L2) 4 Good Extension (S1) 4 Good Abduction 4 Good Adduction 4 Good External Rotation 4 Good Internal Rotation 4 Good PT-OP-Q Treatments Start: 09/25/20 13:12 Freq: Status: Active Protocol: Document 10/02/20 10:32 MA (Rec: 10/02/20 11:23 MA [id number]) Therapeutic Exercises Supine Exercises DKTC Supine Exercise Name Double knee to chest Side bilateral Reps/Minutes 1' SLR Supine Exercise Name SLR Reps/Minutes x10 Comments cued [place], flat back bridge Supine Exercise Name bridge Reps/Minutes 2 x [address], [place] supine clam Supine Exercise Name supine clam Resistance level 2 Equipment Used TB Reps/Minutes 2 x 10 hip adduction squeeze Supine Exercise Name hip adduction squeeze Equipment Used pillow Reps/Minutes 2 x 10 Standing Exercises Marches Standing Exercise Name focusing on core engagement Side bilateral Equipment Used solid floor Reps/Minutes 2x 1 ' Comments no increase in pain Manual Therapy Treatment Soft Tissue Mobilization paraspinals Body Location lumbar and thoracic Mobilization Type Myofascial Release Intensity/Depth Moderate Body Position Prone 1 Body Location R glute med/piriforms Mobilization Type Sustained Pressure,Trigger Point Release Intensity/Depth Moderate Body Position Supine Neuro Re-Education Treatment Balance Activities Blue Foam Details static standing balance Surface airex Reps/Duration 2' Comments eyes closed trails, started on solid floor and progressed to foam PT-OP-R Modalities Start: 09/25/20 13:12 Freq: Status: Active Protocol: Document 10/02/20 10:32 MA (Rec: 10/02/20 11:23 MA [id number]) Hot Pack/Cold Pack Treatment Ice pack Location lumbar and thoracic spine Patient Position Hooklying Treatment Duration (minutes) 10 Patient Tolerance Good Comments pt requested ice vs heat PT-OP-T Assessment and Plan Start: 09/25/20 13:12 Freq: Status: Active Protocol: Document 10/02/20 10:32 MA (Rec: 10/02/20 11:23 MA [id number]) Physical Therapy Assessment Goals Four Impairment falls Delivery Driver Assistant Goal (LTG) Pt will score WNL on Dynamic Gait Index to demonstrate reduction in falls risk. LTG Duration 2 months - 11/25/20 Three Impairment pain limits activity Delivery Driver Assistant Goal (LTG) Pt will walk her dogs 20 minutes without increase in baseline pain LTG Duration 2 months - 11/25/20 Two Impairment lacks HEP Short Term Goal (STG) Pt will be independent with HEP for pain reduction and to support therapy services provided in clinic. STG Duration 4 weeks - 10/23/20 Delivery Driver Assistant Goal (LTG) Pt will be independent with maintenance HEP to prevent and mange her pain. LTG Duration 2 months - 11/25/20 One Impairment chronic pain Short Term Goal (STG) Pt will be educated in physiologic quieting techniques for improved self- efficacy. STG Duration 4 weeks - 10/23/20 Assisted Goal (LTG) Pt will score in moderate risk category on Oniel STarT Back screening tool to demonstate reduced fear avoidance and improved self-efficacy. LTG Duration 2 months - 11/25/20 Assessment Summary Assessment Sarah is able to complete all HEP exercises only requiring cues during bridges to push through heels or she tends to lift heels off mat. She has good static balance on solid floor but has more difficulty with standing on blue foam especially when challenged with eyes closed. Worked on standing marches on solid floor with cues for core engagement. Pt had no increase in back pain while marching but is challenged in her balance when SLS. Pt requested trying ice at end of session so she can decide if she wants to borrow her sister 's ice pack for her back at home. Physical Therapy Plan Frequency and Duration Frequency of Treatment 1-2x/week Duration of Treatment 2 months Plan of Care Start Date 09/25/20 Plan of Care End Date 11/25/20 Therapeutic Interventions Therapeutic Interventions Balance Training,Gait Training ,Home Exercise Program,Manual Therapy,Neuromuscular Re- education,Self-Care/Home Management,Therapeutic Activities,Therapeutic Exercises Modalities Cold Pack/Ice Massage,Electric Stimulation,Hot Packs Next Visit Focus/Plan Next Note Type Treatment Note Next Visit Plan Review initial HEP and progress as able. Initiate standing static balance
--- NOTE | 2020-10-04 17:51 | PT.OTN ---
Current Diagnoses Low back pain (10/04/20) Dorsalgia, unspecified (10/04/20) Difficulty in walking, not elsewhere classified (10/04/20) Physical Therapy Treatment Note PT-OP-A Visit Information Start: 09/25/20 13:12 Freq: Status: Active Protocol: Document 10/04/20 14:26 AW (Rec: 10/04/20 17:50 AW [email or web address]) Out-Patient Physical Therapy Visit Information Visit Information Visit Type Treatment Note Visit Start Time 13:45 Visit Stop Time 14:26 Total Visit Minutes 41 Visit Number 4 Number of ENGRAVER SEALS Visits 0 Evaluation Information Evaluation Date 09/25/20 Precautions Precautions osteoporosis PT-OP-B Current Condition Start: 09/25/20 13:12 Freq: Status: Active Protocol: Document 09/25/20 16:00 AW (Rec: 09/25/20 13:59 AW [email or web address]) Current Condition History of Current Condition Onset Date chronic with recent exacerbation Current Complaints low back pain; bilateral hip pain (R worse than L); difficulty walking History of Current Condition Pt deals with chronic low back and bilteral hip pain. She states she can tolerate a lot of pain but it is getting worse. Activity seems to increase her pain but pt remains active - in part due to personality and in part due to many responsibilities including her dogs. Pain wakes her up and interrupts her sleep. She has difficulty with functional tasks such as vacuuming, bending over to clean a toilet. She reports three falls since late last year; she has fallen on her hips and on her tailbone. Pt states she prefers not to wear shoes and complains of hot spots when she does wear shoes. Pt has had some housing insecurity in the past but is currently living at her sister 's house which has three levels. Pt will do stairs but I pay for it afterward. CBD oils and creams help but no relief lasts very long. Pt reports fair sleep hygiene and states her dogs are good for keeping a schedule. 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 Prior Treatments and Tests 09/21/20 lumbar spine x-ray: No acute fracture. Multilevel degenerative endplate sclerosis and spurring. Diffuse facet arthropathy. Grade 2 anterolisthesis of L5 on S1 is unchanged. Severe narrowing of the L5-S1 disc space. Lucency projects in the region of the L5 pars interarticularis. There is mild narrowing of the remaining lumbar disc spaces. Minimal dextrocurvature. 09/21/20 Thoracic spine x-ray: Mild age-indeterminate compression fracture of the T4 vertebral body. PT for right groin pain in 2019. R shoulder surgery. Treatment Goals Patient/Caregiver Goals Pt would like to walk her dogs with more confidence. She would like to reduce or learn to manage her pain. Personal Factors Other Personal Factors That May Effect Osteoporosis, history of Therapy/Recovery housing insecurity (was previously camping for extended periods of time) but now stays with her sister. PT-OP-C Subjective Start: 09/25/20 13:12 Freq: Status: Active Protocol: Document 10/04/20 14:26 AW (Rec: 10/04/20 17:50 AW [email or web address]) OP-PT Subjective Patient Comments Patient Comments I've been able to do some exercises over the weekend. Generally feeling better. Patient Reported Progress Improving PT-OP-D Balance Start: 09/25/20 13:12 Freq: Status: Active Protocol: Document 09/25/20 16:00 AW (Rec: 09/25/20 17:20 AW [email or web address]) OP-PT Balance Assessment Sitting Balance Static Sitting Balance Ability Normal Dynamic Sitting Balance Ability Good Standing Balance Static Standing Balance Ability Good Dynamic Standing Balance Ability Fair Device Used no AD Mckeon Fall Scale Copyright Permission PT-OP-F Manual Assessment Start: 09/25/20 13:12 Freq: Status: Active Protocol: Document 09/25/20 16:00 AW (Rec: 09/25/20 17:31 AW [email or web address]) Manual Assessments Soft Tissue Assessment Soft Tissue Mobility Assessment Tenderness over bilateral greater trochanters and right groin Joint Mobility Assessment Joint Mobility Assessment Fair mobility with hip posterior glides. PT-OP-K Range of Motion Start: 09/25/20 13:12 Freq: Status: Active Protocol: Document 09/25/20 16:00 AW (Rec: 09/25/20 17:31 AW [email or web address]) Lumbar Spine Range of Motion Lumbar Spine Active Testing Position Standing Flexion 65 Extension 15 Comments Lateral flexion with fingertips to knee joint bilaterally. Rotation WNL without pain Hip Goniometric Range of Motion Hip Passive Testing Position Supine Straight Leg Raise 75 Internal Rotation 45 External Rotation 45 Comments pain with SLR RLE Hip ROM Limitations Hip ROM Limitations Pain PT-OP-L Special Tests Start: 09/25/20 13:12 Freq: Status: Active Protocol: Document 09/25/20 16:00 AW (Rec: 09/25/20 17:31 AW [email or web address]) Special Tests Hip Special Tests Michael Test Results thigh parallel to floor bilaterally Scour Test Test Results positive bilaterally Comments LLE scour results in achey pain in both hips Knee Special Tests Yolande's Test Test Results right positive Comments thigh just past horizontal Neural Special Tests- Lower Body Sciatic Nerve Tension Test Results negative bilaterally PT-OP-M Strength Start: 09/25/20 13:12 Freq: Status: Active Protocol: Document 09/25/20 16:00 AW (Rec: 09/25/20 17:32 AW [email or web address]) Hip Strength Hip Manual Muscle Testing Right Flexion (L2) 4- Good- Extension (S1) 4 Good Abduction 4 Good Adduction 4 Good Left Flexion (L2) 4 Good Extension (S1) 4 Good Abduction 4 Good Adduction 4 Good External Rotation 4 Good Internal Rotation 4 Good PT-OP-Q Treatments Start: 09/25/20 13:12 Freq: Status: Active Protocol: Document 10/04/20 14:26 AW (Rec: 10/04/20 17:50 AW [email or web address]) Therapeutic Exercises Supine Exercises piriformis stretch Supine Exercise Name piriformis stretch Side bilateral Reps/Minutes 30 SH x 4 Comments HEP DKTC Supine Exercise Name Double knee to chest Side bilateral Reps/Minutes 1' x 3 bridge Supine Exercise Name bridge Reps/Minutes 2 x 8 with 10 sec hold Comments cued heel drive, [place] Standing Exercises SLS Standing Exercise Name SLS Side bilateral Equipment Used // prn support Reps/Minutes 5 min resisted hip extension Standing Exercise Name resisted hip extension Side bilateral Resistance level 1 Equipment Used TB Reps/Minutes 2 x 8 resisted hip abduction Standing Exercise Name resisted hip abduction Side bilateral Resistance level 1 Equipment Used TB Reps/Minutes 2 x 8 Marches Standing Exercise Name focusing on core engagement Side bilateral Equipment Used solid floor Reps/Minutes 2x 1 ' Comments no increase in pain Therapeutic Activity Therapeutic Activity diaphragmatic breathing Name diaphragmatic breathing Comments Incorporated diaphragmatic breathing into ther ex today. PT-OP-R Modalities Start: 09/25/20 13:12 Freq: Status: Active Protocol: Document 10/02/20 10:32 MA (Rec: 10/02/20 11:23 MA [id number]) Hot Pack/Cold Pack Treatment Ice pack Location lumbar and thoracic spine Patient Position Hooklying Treatment Duration (minutes) 10 Patient Tolerance Good Comments pt requested ice vs heat PT-OP-T Assessment and Plan Start: 09/25/20 13:12 Freq: Status: Active Protocol: Document 10/04/20 14:26 AW (Rec: 10/04/20 17:50 AW [email or web address]) Physical Therapy Assessment Goals Four Impairment falls Shelter Goal (LTG) Pt will score WNL on Dynamic Gait Index to demonstrate reduction in falls risk. LTG Duration 2 months - 11/25/20 Three Impairment pain limits activity Internal Medicine Physician Assistant Goal (LTG) Pt will walk her dogs 20 minutes without increase in baseline pain LTG Duration 2 months - 11/25/20 Two Impairment lacks HEP Short Term Goal (STG) Pt will be independent with HEP for pain reduction and to support therapy services provided in clinic. STG Duration 4 weeks - 10/23/20 Shelter Goal (LTG) Pt will be independent with maintenance HEP to prevent and mange her pain. LTG Duration 2 months - 11/25/20 One Impairment chronic pain Short Term Goal (STG) Pt will be educated in physiologic quieting techniques for improved self- efficacy. STG Duration 4 weeks - 10/23/20 Shelter Goal (LTG) Pt will score in moderate risk category on Oniel STarT Back screening tool to demonstate reduced fear avoidance and improved self-efficacy. LTG Duration 2 months - 11/25/20 Assessment Summary Assessment Pt easily able to progress to standing ther ex. She has good postural awareness and responds well to simple cues. Physical Therapy Plan Frequency and Duration Frequency of Treatment 1-2x/week Duration of Treatment 2 months Plan of Care Start Date 09/25/20 Plan of Care End Date 11/25/20 Therapeutic Interventions Therapeutic Interventions Balance Training,Gait Training ,Home Exercise Program,Manual Therapy,Neuromuscular Re- education,Self-Care/Home Management,Therapeutic Activities,Therapeutic Exercises Modalities Cold Pack/Ice Massage,Electric Stimulation,Hot Packs Next Visit Focus/Plan Next Note Type Treatment Note Next Visit Plan Review HEP and progress as appropriate. Static and dynamic balance.
--- NOTE | 2020-10-11 15:21 | PT.OTN ---
Current Diagnoses Low back pain (10/11/20) Dorsalgia, unspecified (10/11/20) Difficulty in walking, not elsewhere classified (10/11/20) Physical Therapy Treatment Note PT-OP-A Visit Information Start: 09/25/20 13:12 Freq: Status: Active Protocol: Document 10/11/20 14:35 SP (Rec: 10/11/20 15:35 SP [id number]) Out-Patient Physical Therapy Visit Information Visit Information Visit Type Treatment Note Visit Start Time 14:35 Visit Stop Time 15:21 Total Visit Minutes 46 Visit Number 5 Number of PRODUCT SAFETY EXPERT Visits 1 Evaluation Information Evaluation Date 09/25/20 Precautions Precautions osteoporosis PT-OP-B Current Condition Start: 09/25/20 13:12 Freq: Status: Active Protocol: Document 09/25/20 16:00 AW (Rec: 09/25/20 13:59 AW [email or web address]) Current Condition History of Current Condition Onset Date chronic with recent exacerbation Current Complaints low back pain; bilateral hip pain (R worse than L); difficulty walking History of Current Condition Pt deals with chronic low back and bilteral hip pain. She states she can tolerate a lot of pain but it is getting worse. Activity seems to increase her pain but pt remains active - in part due to personality and in part due to many responsibilities including her dogs. Pain wakes her up and interrupts her sleep. She has difficulty with functional tasks such as vacuuming, bending over to clean a toilet. She reports three falls since late last year; she has fallen on her hips and on her tailbone. Pt states she prefers not to wear shoes and complains of hot spots when she does wear shoes. Pt has had some housing insecurity in the past but is currently living at her sister 's house which has three levels. Pt will do stairs but I pay for it afterward. CBD oils and creams help but no relief lasts very long. Pt reports fair sleep hygiene and states her dogs are good for keeping a schedule. 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 Prior Treatments and Tests 09/21/20 lumbar spine x-ray: No acute fracture. Multilevel degenerative endplate sclerosis and spurring. Diffuse facet arthropathy. Grade 2 anterolisthesis of L5 on S1 is unchanged. Severe narrowing of the L5-S1 disc space. Lucency projects in the region of the L5 pars interarticularis. There is mild narrowing of the remaining lumbar disc spaces. Minimal dextrocurvature. 09/21/20 Thoracic spine x-ray: Mild age-indeterminate compression fracture of the T4 vertebral body. PT for right groin pain in 2019. R shoulder surgery. Treatment Goals Patient/Caregiver Goals Pt would like to walk her dogs with more confidence. She would like to reduce or learn to manage her pain. Personal Factors Other Personal Factors That May Effect Osteoporosis, history of Therapy/Recovery housing insecurity (was previously camping for extended periods of time) but now stays with her sister. PT-OP-C Subjective Start: 09/25/20 13:12 Freq: Status: Active Protocol: Document 10/11/20 14:35 SP (Rec: 10/11/20 15:35 SP [id number]) OP-PT Subjective Patient Comments Patient Comments Pt reported having 9/10 R hip pain, saw Dr Radha Davidson at [facility] in [facility], R>L hips and adductor hurting from the ROM assessments, ortho is ordering an MRI. Pt stated can not do the bridge exercise anymore due to causing migraines and know is doing correctly. Patient Reported Progress Worse PT-OP-D Balance Start: 09/25/20 13:12 Freq: Status: Active Protocol: Document 09/25/20 16:00 AW (Rec: 09/25/20 17:20 AW [email or web address]) OP-PT Balance Assessment Sitting Balance Static Sitting Balance Ability Normal Dynamic Sitting Balance Ability Good Standing Balance Static Standing Balance Ability Good Dynamic Standing Balance Ability Fair Device Used no AD Mckeon Fall Scale Copyright Permission PT-OP-F Manual Assessment Start: 09/25/20 13:12 Freq: Status: Active Protocol: Document 09/25/20 16:00 AW (Rec: 09/25/20 17:31 AW [email or web address]) Manual Assessments Soft Tissue Assessment Soft Tissue Mobility Assessment Tenderness over bilateral greater trochanters and right groin Joint Mobility Assessment Joint Mobility Assessment Fair mobility with hip posterior glides. PT-OP-K Range of Motion Start: 09/25/20 13:12 Freq: Status: Active Protocol: Document 09/25/20 16:00 AW (Rec: 09/25/20 17:31 AW [email or web address]) Lumbar Spine Range of Motion Lumbar Spine Active Testing Position Standing Flexion 65 Extension 15 Comments Lateral flexion with fingertips to knee joint bilaterally. Rotation WNL without pain Hip Goniometric Range of Motion Hip Passive Testing Position Supine Straight Leg Raise 75 Internal Rotation 45 External Rotation 45 Comments pain with SLR RLE Hip ROM Limitations Hip ROM Limitations Pain PT-OP-L Special Tests Start: 09/25/20 13:12 Freq: Status: Active Protocol: Document 09/25/20 16:00 AW (Rec: 09/25/20 17:31 AW [email or web address]) Special Tests Hip Special Tests Michael Test Results thigh parallel to floor bilaterally Scour Test Test Results positive bilaterally Comments LLE scour results in achey pain in both hips Knee Special Tests Yolande's Test Test Results right positive Comments thigh just past horizontal Neural Special Tests- Lower Body Sciatic Nerve Tension Test Results negative bilaterally PT-OP-M Strength Start: 09/25/20 13:12 Freq: Status: Active Protocol: Document 09/25/20 16:00 AW (Rec: 09/25/20 17:32 AW [email or web address]) Hip Strength Hip Manual Muscle Testing Right Flexion (L2) 4- Good- Extension (S1) 4 Good Abduction 4 Good Adduction 4 Good Left Flexion (L2) 4 Good Extension (S1) 4 Good Abduction 4 Good Adduction 4 Good External Rotation 4 Good Internal Rotation 4 Good PT-OP-Q Treatments Start: 09/25/20 13:12 Freq: Status: Active Protocol: Document 10/11/20 14:35 SP (Rec: 10/11/20 15:35 SP [id number]) Therapeutic Exercises Supine Exercises michael stretch Supine Exercise Name added to HEP Side right Equipment Used with/without strap Reps/Minutes 2x60 Comments good feedback response piriformis stretch Supine Exercise Name piriformis stretch Side bilateral Resistance R>L Reps/Minutes 30 SH x 4 Comments HEP reviewed- good feedback response DKTC Supine Exercise Name Double knee to chest Side bilateral Reps/Minutes 1' x 3 SLR Supine Exercise Name SKTC then extends LE toward ceiling Side bilateral Reps/Minutes 5 sec hold x8 Comments cued [place], flat back bridge Supine Exercise Name hold for now- reported pain and migraines after performance Standing Exercises resisted hip extension Standing Exercise Name resisted hip extension Side bilateral Resistance level 1 Equipment Used TB loop, rail contact Reps/Minutes 2 x 5 Comments good feedback response, cued alignment over pelvis, dec trunk flex & BUE WB resisted hip abduction Standing Exercise Name resisted hip abduction Side bilateral Resistance level 1 Equipment Used TB loop, rail contact Reps/Minutes 2 x 5, 2-3 sec hold Comments good feedback response, cued alignment over pelvis, dec trunk flex & BUE WB Manual Therapy Treatment Soft Tissue Mobilization 2 Body Location R adductor Mobilization Type Myofascial Release,Sustained Pressure Intensity/Depth Moderate Body Position Hooklying Comments wedge under BLE 1 Body Location R glute med/piriformis Mobilization Type Sustained Pressure,Trigger Point Release Intensity/Depth Moderate Body Position Sidelying Comments pillows between BLE Joint Mobilizations R hip mobes Direction lateral, inferior Grade II Body Position Hooklying Reps/Duration 60 hold x3 Comments good feedback response, improved releases during lateral than inferior. Instructed use of breath. PT-OP-R Modalities Start: 09/25/20 13:12 Freq: Status: Active Protocol: Document 10/02/20 10:32 MA (Rec: 10/02/20 11:23 MA [id number]) Hot Pack/Cold Pack Treatment Ice pack Location lumbar and thoracic spine Patient Position Hooklying Treatment Duration (minutes) 10 Patient Tolerance Good Comments pt requested ice vs heat PT-OP-T Assessment and Plan Start: 09/25/20 13:12 Freq: Status: Active Protocol: Document 10/11/20 14:35 SP (Rec: 10/11/20 15:35 SP [id number]) Physical Therapy Assessment Goals Four Impairment falls Drafter Patent Goal (LTG) Pt will score WNL on Dynamic Gait Index to demonstrate reduction in falls risk. LTG Duration 2 months - 11/25/20 Three Impairment pain limits activity Group Home Goal (LTG) Pt will walk her dogs 20 minutes without increase in baseline pain LTG Duration 2 months - 11/25/20 Two Impairment lacks HEP Short Term Goal (STG) Pt will be independent with HEP for pain reduction and to support therapy services provided in clinic. STG Duration 4 weeks - 10/23/20 Group Home Goal (LTG) Pt will be independent with maintenance HEP to prevent and mange her pain. LTG Duration 2 months - 11/25/20 One Impairment chronic pain Short Term Goal (STG) Pt will be educated in physiologic quieting techniques for improved self- efficacy. STG Duration 4 weeks - 10/23/20 Group Home Goal (LTG) Pt will score in moderate risk category on Oniel STarT Back screening tool to demonstate reduced fear avoidance and improved self-efficacy. LTG Duration 2 months - 11/25/20 Assessment Summary Assessment Pt responded well to manual, stretching and gentle standing TB strengthening. Cued for trunk alignment w/ neutral pelvis awareness and not over ROM during hip abd, ext with improved muscle facilitation and decreased LS ext and pain over R SI area. She reported reduction in pain to 4/10 before left. Physical Therapy Plan Frequency and Duration Frequency of Treatment 1-2x/week Duration of Treatment 2 months Plan of Care Start Date 09/25/20 Plan of Care End Date 11/25/20 Therapeutic Interventions Therapeutic Interventions Balance Training,Gait Training ,Home Exercise Program,Manual Therapy,Neuromuscular Re- education,Self-Care/Home Management,Therapeutic Activities,Therapeutic Exercises Modalities Cold Pack/Ice Massage,Electric Stimulation,Hot Packs Next Visit Focus/Plan Next Note Type Treatment Note Next Visit Plan Assess response to last tx: manual, stretching, few HEP review. Initiated michael stretch with good resulst. POC: Review HEP and progress as appropriate. Static and dynamic balance.
--- NOTE | 2020-10-18 17:09 | PT.OTN ---
Current Diagnoses Low back pain (10/18/20) Dorsalgia, unspecified (10/18/20) Difficulty in walking, not elsewhere classified (10/18/20) Physical Therapy Treatment Note PT-OP-A Visit Information Start: 09/25/20 13:12 Freq: Status: Active Protocol: Document 10/18/20 15:10 AW (Rec: 10/18/20 15:14 AW [id number]) Out-Patient Physical Therapy Visit Information Visit Information Visit Type Treatment Note Visit Start Time 14:30 Visit Stop Time 15:10 Total Visit Minutes 40 Visit Number 6 Number of LIFT TEAM TECHNICIAN Visits 0 Evaluation Information Evaluation Date 09/25/20 Precautions Precautions osteoporosis PT-OP-B Current Condition Start: 09/25/20 13:12 Freq: Status: Active Protocol: Document 09/25/20 16:00 AW (Rec: 09/25/20 13:59 AW [email or web address]) Current Condition History of Current Condition Onset Date chronic with recent exacerbation Current Complaints low back pain; bilateral hip pain (R worse than L); difficulty walking History of Current Condition Pt deals with chronic low back and bilteral hip pain. She states she can tolerate a lot of pain but it is getting worse. Activity seems to increase her pain but pt remains active - in part due to personality and in part due to many responsibilities including her dogs. Pain wakes her up and interrupts her sleep. She has difficulty with functional tasks such as vacuuming, bending over to clean a toilet. She reports three falls since late last year; she has fallen on her hips and on her tailbone. Pt states she prefers not to wear shoes and complains of hot spots when she does wear shoes. Pt has had some housing insecurity in the past but is currently living at her sister 's house which has three levels. Pt will do stairs but I pay for it afterward. CBD oils and creams help but no relief lasts very long. Pt reports fair sleep hygiene and states her dogs are good for keeping a schedule. 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 Prior Treatments and Tests 09/21/20 lumbar spine x-ray: No acute fracture. Multilevel degenerative endplate sclerosis and spurring. Diffuse facet arthropathy. Grade 2 anterolisthesis of L5 on S1 is unchanged. Severe narrowing of the L5-S1 disc space. Lucency projects in the region of the L5 pars interarticularis. There is mild narrowing of the remaining lumbar disc spaces. Minimal dextrocurvature. 09/21/20 Thoracic spine x-ray: Mild age-indeterminate compression fracture of the T4 vertebral body. PT for right groin pain in 2019. R shoulder surgery. Treatment Goals Patient/Caregiver Goals Pt would like to walk her dogs with more confidence. She would like to reduce or learn to manage her pain. Personal Factors Other Personal Factors That May Effect Osteoporosis, history of Therapy/Recovery housing insecurity (was previously camping for extended periods of time) but now stays with her sister. PT-OP-C Subjective Start: 09/25/20 13:12 Freq: Status: Active Protocol: Document 10/18/20 15:10 AW (Rec: 10/18/20 15:14 AW [id number]) OP-PT Subjective Patient Comments Patient Comments Pt saw ortho who ordered MRI pelvis. Pt scheduled for Patient Reported Progress Worse PT-OP-D Balance Start: 09/25/20 13:12 Freq: Status: Active Protocol: Document 09/25/20 16:00 AW (Rec: 09/25/20 17:20 AW [email or web address]) OP-PT Balance Assessment Sitting Balance Static Sitting Balance Ability Normal Dynamic Sitting Balance Ability Good Standing Balance Static Standing Balance Ability Good Dynamic Standing Balance Ability Fair Device Used no AD Mckeon Fall Scale Copyright Permission PT-OP-F Manual Assessment Start: 09/25/20 13:12 Freq: Status: Active Protocol: Document 09/25/20 16:00 AW (Rec: 09/25/20 17:31 AW [email or web address]) Manual Assessments Soft Tissue Assessment Soft Tissue Mobility Assessment Tenderness over bilateral greater trochanters and right groin Joint Mobility Assessment Joint Mobility Assessment Fair mobility with hip posterior glides. PT-OP-K Range of Motion Start: 09/25/20 13:12 Freq: Status: Active Protocol: Document 09/25/20 16:00 AW (Rec: 09/25/20 17:31 AW [email or web address]) Lumbar Spine Range of Motion Lumbar Spine Active Testing Position Standing Flexion 65 Extension 15 Comments Lateral flexion with fingertips to knee joint bilaterally. Rotation WNL without pain Hip Goniometric Range of Motion Hip Passive Testing Position Supine Straight Leg Raise 75 Internal Rotation 45 External Rotation 45 Comments pain with SLR RLE Hip ROM Limitations Hip ROM Limitations Pain PT-OP-L Special Tests Start: 09/25/20 13:12 Freq: Status: Active Protocol: Document 09/25/20 16:00 AW (Rec: 09/25/20 17:31 AW [email or web address]) Special Tests Hip Special Tests Michael Test Results thigh parallel to floor bilaterally Scour Test Test Results positive bilaterally Comments LLE scour results in achey pain in both hips Knee Special Tests Yolande's Test Test Results right positive Comments thigh just past horizontal Neural Special Tests- Lower Body Sciatic Nerve Tension Test Results negative bilaterally PT-OP-M Strength Start: 09/25/20 13:12 Freq: Status: Active Protocol: Document 09/25/20 16:00 AW (Rec: 09/25/20 17:32 AW [email or web address]) Hip Strength Hip Manual Muscle Testing Right Flexion (L2) 4- Good- Extension (S1) 4 Good Abduction 4 Good Adduction 4 Good Left Flexion (L2) 4 Good Extension (S1) 4 Good Abduction 4 Good Adduction 4 Good External Rotation 4 Good Internal Rotation 4 Good PT-OP-Q Treatments Start: 09/25/20 13:12 Freq: Status: Active Protocol: Document 10/18/20 15:10 AW (Rec: 10/18/20 15:14 AW [id number]) Therapeutic Exercises Supine Exercises piriformis stretch Supine Exercise Name piriformis stretch Side bilateral Resistance R>L Reps/Minutes 30 SH x 4 Comments with manual overpressuire DKTC Supine Exercise Name Double knee to chest Side bilateral Reps/Minutes 1' x 3 SLR Supine Exercise Name SKTC then extends LE toward ceiling Side bilateral Reps/Minutes 5 sec hold x8 Comments cued [place], flat back Therapeutic Activity Therapeutic Activity diaphragmatic breathing Name diaphragmatic breathing Comments Reviewed and educated on effect on sympathetic tone. Good response. Manual Therapy Treatment Soft Tissue Mobilization 2 Body Location R adductor Mobilization Type Myofascial Release,Sustained Pressure Intensity/Depth Moderate Body Position Hooklying Comments wedge under BLE 1 Body Location R glute med/piriformis Mobilization Type Sustained Pressure,Trigger Point Release Intensity/Depth Moderate Body Position Sidelying Comments pillows between BLE Joint Mobilizations B hip long axis traction Joint B hip long axis traction Grade III Body Position Supine Reps/Duration 6 min Comments good feedback. incorporated diaphrag breathing Manual Traction Lumbar Body Position Hooklying Reps/Duration 1 min x 4 Comments Vaguely relieving for back and hip pain PT-OP-R Modalities Start: 09/25/20 13:12 Freq: Status: Active Protocol: Document 10/02/20 10:32 MA (Rec: 10/02/20 11:23 MA [id number]) Hot Pack/Cold Pack Treatment Ice pack Location lumbar and thoracic spine Patient Position Hooklying Treatment Duration (minutes) 10 Patient Tolerance Good Comments pt requested ice vs heat PT-OP-T Assessment and Plan Start: 09/25/20 13:12 Freq: Status: Active Protocol: Document 10/18/20 15:10 AW (Rec: 10/18/20 17:08 AW [email or web address]) Physical Therapy Assessment Goals Four Impairment falls Dishwasher Preparer Goal (LTG) Pt will score WNL on Dynamic Gait Index to demonstrate reduction in falls risk. LTG Duration 2 months - 11/25/20 Three Impairment pain limits activity Penitentiary Goal (LTG) Pt will walk her dogs 20 minutes without increase in baseline pain LTG Duration 2 months - 11/25/20 Two Impairment lacks HEP Short Term Goal (STG) Pt will be independent with HEP for pain reduction and to support therapy services provided in clinic. STG Duration 4 weeks - 10/23/20 Dishwasher Preparer Goal (LTG) Pt will be independent with maintenance HEP to prevent and mange her pain. LTG Duration 2 months - 11/25/20 One Impairment chronic pain Short Term Goal (STG) Pt will be educated in physiologic quieting techniques for improved self- efficacy. STG Duration 4 weeks - 10/23/20 Penitentiary Goal (LTG) Pt will score in moderate risk category on Oniel STarT Back screening tool to demonstate reduced fear avoidance and improved self-efficacy. LTG Duration 2 months - 11/25/20 Assessment Summary Assessment Pt's pain symptoms were more irritable today. She tolerated manual therapy for pain management and responded well to pain education regarding diaphragmatic breathing and sleep hygiene. Physical Therapy Plan Frequency and Duration Frequency of Treatment 1-2x/week Duration of Treatment 2 months Plan of Care Start Date 09/25/20 Plan of Care End Date 11/25/20 Therapeutic Interventions Therapeutic Interventions Balance Training,Gait Training ,Home Exercise Program,Manual Therapy,Neuromuscular Re- education,Self-Care/Home Management,Therapeutic Activities,Therapeutic Exercises Modalities Cold Pack/Ice Massage,Electric Stimulation,Hot Packs Next Visit Focus/Plan Next Note Type Treatment Note Next Visit Plan POC: Review HEP and progress as appropriate. Static and dynamic balance.
--- NOTE | 2020-10-23 16:58 | PT.OTN ---
Current Diagnoses Low back pain (10/23/20) Dorsalgia, unspecified (10/23/20) Difficulty in walking, not elsewhere classified (10/23/20) Physical Therapy Treatment Note PT-OP-A Visit Information Start: 09/25/20 13:12 Freq: Status: Active Protocol: Document 10/23/20 15:13 AW (Rec: 10/23/20 15:14 AW [id number]) Out-Patient Physical Therapy Visit Information Visit Information Visit Type Treatment Note Visit Start Time 14:30 Visit Stop Time 15:13 Total Visit Minutes 43 Visit Number 7 Number of SERVICE CLEANER Visits 0 Evaluation Information Evaluation Date 09/25/20 Precautions Precautions osteoporosis PT-OP-B Current Condition Start: 09/25/20 13:12 Freq: Status: Active Protocol: Document 09/25/20 16:00 AW (Rec: 09/25/20 13:59 AW [email or web address]) Current Condition History of Current Condition Onset Date chronic with recent exacerbation Current Complaints low back pain; bilateral hip pain (R worse than L); difficulty walking History of Current Condition Pt deals with chronic low back and bilteral hip pain. She states she can tolerate a lot of pain but it is getting worse. Activity seems to increase her pain but pt remains active - in part due to personality and in part due to many responsibilities including her dogs. Pain wakes her up and interrupts her sleep. She has difficulty with functional tasks such as vacuuming, bending over to clean a toilet. She reports three falls since late last year; she has fallen on her hips and on her tailbone. Pt states she prefers not to wear shoes and complains of hot spots when she does wear shoes. Pt has had some housing insecurity in the past but is currently living at her sister 's house which has three levels. Pt will do stairs but I pay for it afterward. CBD oils and creams help but no relief lasts very long. Pt reports fair sleep hygiene and states her dogs are good for keeping a schedule. 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 Prior Treatments and Tests 09/21/20 lumbar spine x-ray: No acute fracture. Multilevel degenerative endplate sclerosis and spurring. Diffuse facet arthropathy. Grade 2 anterolisthesis of L5 on S1 is unchanged. Severe narrowing of the L5-S1 disc space. Lucency projects in the region of the L5 pars interarticularis. There is mild narrowing of the remaining lumbar disc spaces. Minimal dextrocurvature. 09/21/20 Thoracic spine x-ray: Mild age-indeterminate compression fracture of the T4 vertebral body. PT for right groin pain in 2019. R shoulder surgery. Treatment Goals Patient/Caregiver Goals Pt would like to walk her dogs with more confidence. She would like to reduce or learn to manage her pain. Personal Factors Other Personal Factors That May Effect Osteoporosis, history of Therapy/Recovery housing insecurity (was previously camping for extended periods of time) but now stays with her sister. PT-OP-C Subjective Start: 09/25/20 13:12 Freq: Status: Active Protocol: Document 10/23/20 15:13 AW (Rec: 10/23/20 15:14 AW [id number]) OP-PT Subjective Patient Comments Patient Comments My ankles haven't been bothering me and my sciatic isn't acting up as much. Patient Reported Progress Improving PT-OP-D Balance Start: 09/25/20 13:12 Freq: Status: Active Protocol: Document 09/25/20 16:00 AW (Rec: 09/25/20 17:20 AW [email or web address]) OP-PT Balance Assessment Sitting Balance Static Sitting Balance Ability Normal Dynamic Sitting Balance Ability Good Standing Balance Static Standing Balance Ability Good Dynamic Standing Balance Ability Fair Device Used no AD Mckeon Fall Scale Copyright Permission PT-OP-F Manual Assessment Start: 09/25/20 13:12 Freq: Status: Active Protocol: Document 09/25/20 16:00 AW (Rec: 09/25/20 17:31 AW [email or web address]) Manual Assessments Soft Tissue Assessment Soft Tissue Mobility Assessment Tenderness over bilateral greater trochanters and right groin Joint Mobility Assessment Joint Mobility Assessment Fair mobility with hip posterior glides. PT-OP-K Range of Motion Start: 09/25/20 13:12 Freq: Status: Active Protocol: Document 09/25/20 16:00 AW (Rec: 09/25/20 17:31 AW [email or web address]) Lumbar Spine Range of Motion Lumbar Spine Active Testing Position Standing Flexion 65 Extension 15 Comments Lateral flexion with fingertips to knee joint bilaterally. Rotation WNL without pain Hip Goniometric Range of Motion Hip Passive Testing Position Supine Straight Leg Raise 75 Internal Rotation 45 External Rotation 45 Comments pain with SLR RLE Hip ROM Limitations Hip ROM Limitations Pain PT-OP-L Special Tests Start: 09/25/20 13:12 Freq: Status: Active Protocol: Document 09/25/20 16:00 AW (Rec: 09/25/20 17:31 AW [email or web address]) Special Tests Hip Special Tests Michael Test Results thigh parallel to floor bilaterally Scour Test Test Results positive bilaterally Comments LLE scour results in achey pain in both hips Knee Special Tests Yolande's Test Test Results right positive Comments thigh just past horizontal Neural Special Tests- Lower Body Sciatic Nerve Tension Test Results negative bilaterally PT-OP-M Strength Start: 09/25/20 13:12 Freq: Status: Active Protocol: Document 09/25/20 16:00 AW (Rec: 09/25/20 17:32 AW [email or web address]) Hip Strength Hip Manual Muscle Testing Right Flexion (L2) 4- Good- Extension (S1) 4 Good Abduction 4 Good Adduction 4 Good Left Flexion (L2) 4 Good Extension (S1) 4 Good Abduction 4 Good Adduction 4 Good External Rotation 4 Good Internal Rotation 4 Good PT-OP-Q Treatments Start: 09/25/20 13:12 Freq: Status: Active Protocol: Document 10/23/20 15:13 AW (Rec: 10/23/20 15:14 AW [id number]) Cardio Equipment Recumbent Elliptical (BiodUbooly) Duration (Minutes) 5 Resistance 5 Seat Position 5 Therapeutic Exercises Supine Exercises piriformis stretch Supine Exercise Name piriformis stretch Side bilateral Resistance R>L Reps/Minutes 30 SH x 4 Comments with manual overpressuire Standing Exercises resisted hip extension Standing Exercise Name resisted hip extension Side bilateral Resistance level 1 Equipment Used TB loop, rail contact Reps/Minutes 2 x 5 Comments good feedback response, cued alignment over pelvis, dec trunk flex & BUE WB resisted hip abduction Standing Exercise Name lateral band walk Side bilateral Resistance level 1 Equipment Used TB loop, rail contact Reps/Minutes 10' lap x 2 Comments cued slow, controlled eccentric phase Therapeutic Activity Therapeutic Activity diaphragmatic breathing Name diaphragmatic breathing Comments Incorporated into all exercise . Manual Therapy Treatment Joint Mobilizations B hip long axis traction Joint B hip long axis traction Grade III Body Position Supine Reps/Duration 6 min Comments good feedback. incorporated diaphrag breathing R hip mobes Direction lateral Grade II Body Position Hooklying Reps/Duration 60 hold x3 Comments Instructed use of breath. PT-OP-R Modalities Start: 09/25/20 13:12 Freq: Status: Active Protocol: Document 10/02/20 10:32 MA (Rec: 10/02/20 11:23 MA [id number]) Hot Pack/Cold Pack Treatment Ice pack Location lumbar and thoracic spine Patient Position Hooklying Treatment Duration (minutes) 10 Patient Tolerance Good Comments pt requested ice vs heat PT-OP-T Assessment and Plan Start: 09/25/20 13:12 Freq: Status: Active Protocol: Document 10/23/20 15:13 AW (Rec: 10/23/20 16:58 AW [email or web address]) Physical Therapy Assessment Goals Four Impairment falls Snf Goal (LTG) Pt will score WNL on Dynamic Gait Index to demonstrate reduction in falls risk. LTG Duration 2 months - 11/25/20 Three Impairment pain limits activity Snf Goal (LTG) Pt will walk her dogs 20 minutes without increase in baseline pain LTG Duration 2 months - 11/25/20 Two Impairment lacks HEP Short Term Goal (STG) Pt will be independent with HEP for pain reduction and to support therapy services provided in clinic. 10/23/20 MET STG Duration 4 weeks - 10/23/20 Snf Goal (LTG) Pt will be independent with maintenance HEP to prevent and mange her pain. LTG Duration 2 months - 11/25/20 One Impairment chronic pain Short Term Goal (STG) Pt will be educated in physiologic quieting techniques for improved self- efficacy. 10/23/20 - Pt demonstrates good understanding of principles but requires frequent cues to incorporate pain mgmt techniques into exercise. STG Duration 4 weeks - 10/23/20 Snf Goal (LTG) Pt will score in moderate risk category on Oniel STarT Back screening tool to demonstate reduced fear avoidance and improved self-efficacy. LTG Duration 2 months - 11/25/20 Assessment Summary Assessment Treatment focused on manual therapy for hip mobility/pain management and hip strengthening. Pt tolerated well and reports overall improvement. Short-term goals assessed and pt is progressing . Physical Therapy Plan Frequency and Duration Frequency of Treatment 1-2x/week Duration of Treatment 2 months Plan of Care Start Date 09/25/20 Plan of Care End Date 11/25/20 Therapeutic Interventions Therapeutic Interventions Balance Training,Gait Training ,Home Exercise Program,Manual Therapy,Neuromuscular Re- education,Self-Care/Home Management,Therapeutic Activities,Therapeutic Exercises Modalities Cold Pack/Ice Massage,Electric Stimulation,Hot Packs Next Visit Focus/Plan Next Note Type Treatment Note Next Visit Plan POC: Review HEP and progress as appropriate. Static and dynamic balance.
--- NOTE | 2020-10-25 15:17 | PT.OTN ---
Current Diagnoses Low back pain (10/25/20) Dorsalgia, unspecified (10/25/20) Difficulty in walking, not elsewhere classified (10/25/20) Physical Therapy Treatment Note PT-OP-A Visit Information Start: 09/25/20 13:12 Freq: Status: Active Protocol: Document 10/25/20 15:12 AW (Rec: 10/25/20 15:13 AW [id number]) Out-Patient Physical Therapy Visit Information Visit Information Visit Type Treatment Note Visit Start Time 14:30 Visit Stop Time 15:12 Total Visit Minutes 42 Visit Number 8 Number of DRAFTING ENGINEER Visits 0 Evaluation Information Evaluation Date 09/25/20 Precautions Precautions osteoporosis PT-OP-B Current Condition Start: 09/25/20 13:12 Freq: Status: Active Protocol: Document 09/25/20 16:00 AW (Rec: 09/25/20 13:59 AW [email or web address]) Current Condition History of Current Condition Onset Date chronic with recent exacerbation Current Complaints low back pain; bilateral hip pain (R worse than L); difficulty walking History of Current Condition Pt deals with chronic low back and bilteral hip pain. She states she can tolerate a lot of pain but it is getting worse. Activity seems to increase her pain but pt remains active - in part due to personality and in part due to many responsibilities including her dogs. Pain wakes her up and interrupts her sleep. She has difficulty with functional tasks such as vacuuming, bending over to clean a toilet. She reports three falls since late last year; she has fallen on her hips and on her tailbone. Pt states she prefers not to wear shoes and complains of hot spots when she does wear shoes. Pt has had some housing insecurity in the past but is currently living at her sister 's house which has three levels. Pt will do stairs but I pay for it afterward. CBD oils and creams help but no relief lasts very long. Pt reports fair sleep hygiene and states her dogs are good for keeping a schedule. 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 Prior Treatments and Tests 09/21/20 lumbar spine x-ray: No acute fracture. Multilevel degenerative endplate sclerosis and spurring. Diffuse facet arthropathy. Grade 2 anterolisthesis of L5 on S1 is unchanged. Severe narrowing of the L5-S1 disc space. Lucency projects in the region of the L5 pars interarticularis. There is mild narrowing of the remaining lumbar disc spaces. Minimal dextrocurvature. 09/21/20 Thoracic spine x-ray: Mild age-indeterminate compression fracture of the T4 vertebral body. PT for right groin pain in 2019. R shoulder surgery. Treatment Goals Patient/Caregiver Goals Pt would like to walk her dogs with more confidence. She would like to reduce or learn to manage her pain. Personal Factors Other Personal Factors That May Effect Osteoporosis, history of Therapy/Recovery housing insecurity (was previously camping for extended periods of time) but now stays with her sister. PT-OP-C Subjective Start: 09/25/20 13:12 Freq: Status: Active Protocol: Document 10/25/20 15:12 AW (Rec: 10/25/20 15:13 AW [id number]) OP-PT Subjective Patient Comments Patient Comments My hips seem more achy today. Patient Reported Progress Same PT-OP-D Balance Start: 09/25/20 13:12 Freq: Status: Active Protocol: Document 09/25/20 16:00 AW (Rec: 09/25/20 17:20 AW [email or web address]) OP-PT Balance Assessment Sitting Balance Static Sitting Balance Ability Normal Dynamic Sitting Balance Ability Good Standing Balance Static Standing Balance Ability Good Dynamic Standing Balance Ability Fair Device Used no AD Mckeon Fall Scale Copyright Permission PT-OP-F Manual Assessment Start: 09/25/20 13:12 Freq: Status: Active Protocol: Document 09/25/20 16:00 AW (Rec: 09/25/20 17:31 AW [email or web address]) Manual Assessments Soft Tissue Assessment Soft Tissue Mobility Assessment Tenderness over bilateral greater trochanters and right groin Joint Mobility Assessment Joint Mobility Assessment Fair mobility with hip posterior glides. PT-OP-K Range of Motion Start: 09/25/20 13:12 Freq: Status: Active Protocol: Document 09/25/20 16:00 AW (Rec: 09/25/20 17:31 AW [email or web address]) Lumbar Spine Range of Motion Lumbar Spine Active Testing Position Standing Flexion 65 Extension 15 Comments Lateral flexion with fingertips to knee joint bilaterally. Rotation WNL without pain Hip Goniometric Range of Motion Hip Passive Testing Position Supine Straight Leg Raise 75 Internal Rotation 45 External Rotation 45 Comments pain with SLR RLE Hip ROM Limitations Hip ROM Limitations Pain PT-OP-L Special Tests Start: 09/25/20 13:12 Freq: Status: Active Protocol: Document 09/25/20 16:00 AW (Rec: 09/25/20 17:31 AW [email or web address]) Special Tests Hip Special Tests Michael Test Results thigh parallel to floor bilaterally Scour Test Test Results positive bilaterally Comments LLE scour results in achey pain in both hips Knee Special Tests Yolande's Test Test Results right positive Comments thigh just past horizontal Neural Special Tests- Lower Body Sciatic Nerve Tension Test Results negative bilaterally PT-OP-M Strength Start: 09/25/20 13:12 Freq: Status: Active Protocol: Document 09/25/20 16:00 AW (Rec: 09/25/20 17:32 AW [email or web address]) Hip Strength Hip Manual Muscle Testing Right Flexion (L2) 4- Good- Extension (S1) 4 Good Abduction 4 Good Adduction 4 Good Left Flexion (L2) 4 Good Extension (S1) 4 Good Abduction 4 Good Adduction 4 Good External Rotation 4 Good Internal Rotation 4 Good PT-OP-Q Treatments Start: 09/25/20 13:12 Freq: Status: Active Protocol: Document 10/25/20 15:12 AW (Rec: 10/25/20 15:13 AW [id number]) Therapeutic Exercises Supine Exercises ITB stretch Supine Exercise Name ITB stretch Comments legs crossed at knees, gum puller toward opposite side piriformis stretch Supine Exercise Name piriformis stretch Side bilateral Resistance R>L Reps/Minutes 30 SH x 4 Comments with manual overpressuire DKTC Supine Exercise Name Double knee to chest Side bilateral Reps/Minutes 1' x 3 Other Exercises sit to stand Other Exercise Name sit to stand Equipment Used meter stick for tactile feedback Comments neutral spine, glute drive Therapeutic Activity Therapeutic Activity diaphragmatic breathing Name diaphragmatic breathing Comments Incorporated into all exercise . Manual Therapy Treatment Soft Tissue Mobilization 1 Body Location R glute med/piriformis Mobilization Type Sustained Pressure,Trigger Point Release Intensity/Depth Moderate Body Position Sidelying Comments pillows between BLE Joint Mobilizations B hip long axis traction Joint B hip long axis traction Grade III Body Position Supine Reps/Duration 6 min Comments good feedback. incorporated diaphrag breathing PT-OP-R Modalities Start: 09/25/20 13:12 Freq: Status: Active Protocol: Document 10/02/20 10:32 MA (Rec: 10/02/20 11:23 MA [id number]) Hot Pack/Cold Pack Treatment Ice pack Location lumbar and thoracic spine Patient Position Hooklying Treatment Duration (minutes) 10 Patient Tolerance Good Comments pt requested ice vs heat PT-OP-T Assessment and Plan Start: 09/25/20 13:12 Freq: Status: Active Protocol: Document 10/25/20 15:12 AW (Rec: 10/25/20 15:16 AW [id number]) Physical Therapy Assessment Goals Four Impairment falls Halfway Goal (LTG) Pt will score WNL on Dynamic Gait Index to demonstrate reduction in falls risk. LTG Duration 2 months - 11/25/20 Three Impairment pain limits activity Halfway Goal (LTG) Pt will walk her dogs 20 minutes without increase in baseline pain LTG Duration 2 months - 11/25/20 Two Impairment lacks HEP Short Term Goal (STG) Pt will be independent with HEP for pain reduction and to support therapy services provided in clinic. 10/23/20 MET STG Duration 4 weeks - 10/23/20 Halfway Goal (LTG) Pt will be independent with maintenance HEP to prevent and mange her pain. LTG Duration 2 months - 11/25/20 One Impairment chronic pain Short Term Goal (STG) Pt will be educated in physiologic quieting techniques for improved self- efficacy. 10/23/20 - Pt demonstrates good understanding of principles but requires frequent cues to incorporate pain mgmt techniques into exercise. STG Duration 4 weeks - 10/23/20 Halfway Goal (LTG) Pt will score in moderate risk category on Oniel STarT Back screening tool to demonstate reduced fear avoidance and improved self-efficacy. LTG Duration 2 months - 11/25/20 Assessment Summary Assessment Continued focus on hip mobility. Introduced sit to stand training for lumbar stability and hip recruitment. Pt tolerated treatment well and reported reduced pain when leaving. Physical Therapy Plan Frequency and Duration Frequency of Treatment 1-2x/week Duration of Treatment 2 months Plan of Care Start Date 09/25/20 Plan of Care End Date 11/25/20 Therapeutic Interventions Therapeutic Interventions Balance Training,Gait Training ,Home Exercise Program,Manual Therapy,Neuromuscular Re- education,Self-Care/Home Management,Therapeutic Activities,Therapeutic Exercises Modalities Cold Pack/Ice Massage,Electric Stimulation,Hot Packs Next Visit Focus/Plan Next Note Type Treatment Note Next Visit Plan Continue sit to stand and progress as able. Hip strength
--- NOTE | 2020-10-30 17:29 | PT.OTN ---
Current Diagnoses Low back pain (10/30/20) Dorsalgia, unspecified (10/30/20) Difficulty in walking, not elsewhere classified (10/30/20) Physical Therapy Treatment Note PT-OP-A Visit Information Start: 09/25/20 13:12 Freq: Status: Active Protocol: Document 10/30/20 15:15 AW (Rec: 10/30/20 15:16 AW [id number]) Out-Patient Physical Therapy Visit Information Visit Information Visit Type Treatment Note Visit Start Time 14:33 Visit Stop Time 15:15 Total Visit Minutes 42 Visit Number 9 Number of CONFIGURATION MANAGEMENT MANAGER Visits 0 Evaluation Information Evaluation Date 09/25/20 Precautions Precautions osteoporosis PT-OP-B Current Condition Start: 09/25/20 13:12 Freq: Status: Active Protocol: Document 09/25/20 16:00 AW (Rec: 09/25/20 13:59 AW [email or web address]) Current Condition History of Current Condition Onset Date chronic with recent exacerbation Current Complaints low back pain; bilateral hip pain (R worse than L); difficulty walking History of Current Condition Pt deals with chronic low back and bilteral hip pain. She states she can tolerate a lot of pain but it is getting worse. Activity seems to increase her pain but pt remains active - in part due to personality and in part due to many responsibilities including her dogs. Pain wakes her up and interrupts her sleep. She has difficulty with functional tasks such as vacuuming, bending over to clean a toilet. She reports three falls since late last year; she has fallen on her hips and on her tailbone. Pt states she prefers not to wear shoes and complains of hot spots when she does wear shoes. Pt has had some housing insecurity in the past but is currently living at her sister 's house which has three levels. Pt will do stairs but I pay for it afterward. CBD oils and creams help but no relief lasts very long. Pt reports fair sleep hygiene and states her dogs are good for keeping a schedule. 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 Prior Treatments and Tests 09/21/20 lumbar spine x-ray: No acute fracture. Multilevel degenerative endplate sclerosis and spurring. Diffuse facet arthropathy. Grade 2 anterolisthesis of L5 on S1 is unchanged. Severe narrowing of the L5-S1 disc space. Lucency projects in the region of the L5 pars interarticularis. There is mild narrowing of the remaining lumbar disc spaces. Minimal dextrocurvature. 09/21/20 Thoracic spine x-ray: Mild age-indeterminate compression fracture of the T4 vertebral body. PT for right groin pain in 2019. R shoulder surgery. Treatment Goals Patient/Caregiver Goals Pt would like to walk her dogs with more confidence. She would like to reduce or learn to manage her pain. Personal Factors Other Personal Factors That May Effect Osteoporosis, history of Therapy/Recovery housing insecurity (was previously camping for extended periods of time) but now stays with her sister. PT-OP-C Subjective Start: 09/25/20 13:12 Freq: Status: Active Protocol: Document 10/30/20 15:15 AW (Rec: 10/30/20 15:16 AW [id number]) OP-PT Subjective Patient Comments Patient Comments I spent 1.5 hours on my back in the MRI yesterday and I'm paying for it today. At least my deep breathing exercise helped. Patient Reported Progress Same PT-OP-D Balance Start: 09/25/20 13:12 Freq: Status: Active Protocol: Document 09/25/20 16:00 AW (Rec: 09/25/20 17:20 AW [email or web address]) OP-PT Balance Assessment Sitting Balance Static Sitting Balance Ability Normal Dynamic Sitting Balance Ability Good Standing Balance Static Standing Balance Ability Good Dynamic Standing Balance Ability Fair Device Used no AD Mckeon Fall Scale Copyright Permission PT-OP-F Manual Assessment Start: 09/25/20 13:12 Freq: Status: Active Protocol: Document 09/25/20 16:00 AW (Rec: 09/25/20 17:31 AW [email or web address]) Manual Assessments Soft Tissue Assessment Soft Tissue Mobility Assessment Tenderness over bilateral greater trochanters and right groin Joint Mobility Assessment Joint Mobility Assessment Fair mobility with hip posterior glides. PT-OP-K Range of Motion Start: 09/25/20 13:12 Freq: Status: Active Protocol: Document 09/25/20 16:00 AW (Rec: 09/25/20 17:31 AW [email or web address]) Lumbar Spine Range of Motion Lumbar Spine Active Testing Position Standing Flexion 65 Extension 15 Comments Lateral flexion with fingertips to knee joint bilaterally. Rotation WNL without pain Hip Goniometric Range of Motion Hip Passive Testing Position Supine Straight Leg Raise 75 Internal Rotation 45 External Rotation 45 Comments pain with SLR RLE Hip ROM Limitations Hip ROM Limitations Pain PT-OP-L Special Tests Start: 09/25/20 13:12 Freq: Status: Active Protocol: Document 09/25/20 16:00 AW (Rec: 09/25/20 17:31 AW [email or web address]) Special Tests Hip Special Tests Michael Test Results thigh parallel to floor bilaterally Scour Test Test Results positive bilaterally Comments LLE scour results in achey pain in both hips Knee Special Tests Yolande's Test Test Results right positive Comments thigh just past horizontal Neural Special Tests- Lower Body Sciatic Nerve Tension Test Results negative bilaterally PT-OP-M Strength Start: 09/25/20 13:12 Freq: Status: Active Protocol: Document 09/25/20 16:00 AW (Rec: 09/25/20 17:32 AW [email or web address]) Hip Strength Hip Manual Muscle Testing Right Flexion (L2) 4- Good- Extension (S1) 4 Good Abduction 4 Good Adduction 4 Good Left Flexion (L2) 4 Good Extension (S1) 4 Good Abduction 4 Good Adduction 4 Good External Rotation 4 Good Internal Rotation 4 Good PT-OP-Q Treatments Start: 09/25/20 13:12 Freq: Status: Active Protocol: Document 10/30/20 15:15 AW (Rec: 10/30/20 15:16 AW [id number]) Cardio Equipment Recumbent Elliptical (Biodex) Duration (Minutes) 5 Resistance 5 Seat Position 5 Gym Equipment Therapeutic Ball pelvic tilt Exercise Details pelvic tilt, clocks, TA march Ball Size/Color 65 cm green Body Position Sitting Reps/Duration 5 min Comments a/p, lateral, clocks; marches for core activation Therapeutic Exercises Supine Exercises piriformis stretch Supine Exercise Name piriformis stretch Side bilateral Resistance R>L Reps/Minutes 30 SH x 4 Comments with manual overpressuire DKTC Supine Exercise Name Double knee to chest Side bilateral Reps/Minutes 1' x 2 Other Exercises sit to stand Other Exercise Name sit to stand Equipment Used no meter stick today Comments neutral spine, glute drive, wt shift Therapeutic Activity Therapeutic Activity diaphragmatic breathing Name diaphragmatic breathing Comments Incorporated into all exercise . Manual Therapy Treatment Soft Tissue Mobilization 1 Body Location R glute med/piriformis Mobilization Type Sustained Pressure,Trigger Point Release Intensity/Depth Moderate Body Position Sidelying Comments pillows between BLE Joint Mobilizations B hip long axis traction Joint B hip long axis traction Grade III Body Position Supine Reps/Duration 3 min Comments good feedback. incorporated diaphrag breathing PT-OP-R Modalities Start: 09/25/20 13:12 Freq: Status: Active Protocol: Document 10/02/20 10:32 MA (Rec: 10/02/20 11:23 MA [id number]) Hot Pack/Cold Pack Treatment Ice pack Location lumbar and thoracic spine Patient Position Hooklying Treatment Duration (minutes) 10 Patient Tolerance Good Comments pt requested ice vs heat PT-OP-T Assessment and Plan Start: 09/25/20 13:12 Freq: Status: Active Protocol: Document 10/30/20 15:15 AW (Rec: 10/30/20 17:29 AW [email or web address]) Physical Therapy Assessment Goals Four Impairment falls Aviation Operations Specialist Goal (LTG) Pt will score WNL on Dynamic Gait Index to demonstrate reduction in falls risk. LTG Duration 2 months - 11/25/20 Three Impairment pain limits activity Long-Term Goal (LTG) Pt will walk her dogs 20 minutes without increase in baseline pain LTG Duration 2 months - 11/25/20 Two Impairment lacks HEP Short Term Goal (STG) Pt will be independent with HEP for pain reduction and to support therapy services provided in clinic. 10/23/20 MET STG Duration 4 weeks - 10/23/20 Aviation Operations Specialist Goal (LTG) Pt will be independent with maintenance HEP to prevent and mange her pain. LTG Duration 2 months - 11/25/20 One Impairment chronic pain Short Term Goal (STG) Pt will be educated in physiologic quieting techniques for improved self- efficacy. 10/23/20 - Pt demonstrates good understanding of principles but requires frequent cues to incorporate pain mgmt techniques into exercise. 10/30/20 - MET STG Duration 4 weeks - 10/23/20 Long-Term Goal (LTG) Pt will score in moderate risk category on Oniel STarT Back screening tool to demonstate reduced fear avoidance and improved self-efficacy. LTG Duration 2 months - 11/25/20 Assessment Summary Assessment Pt is progressing in her hip hinge and overall hip mobility . She is reporting more focused (less diffuse hip pain ). Will continue to address hip mobility and stability. Physical Therapy Plan Frequency and Duration Frequency of Treatment 1-2x/week Duration of Treatment 2 months Plan of Care Start Date 09/25/20 Plan of Care End Date 11/25/20 Therapeutic Interventions Therapeutic Interventions Balance Training,Gait Training ,Home Exercise Program,Manual Therapy,Neuromuscular Re- education,Self-Care/Home Management,Therapeutic Activities,Therapeutic Exercises Modalities Cold Pack/Ice Massage,Electric Stimulation,Hot Packs Next Visit Focus/Plan Next Note Type Treatment Note Next Visit Plan Continue sit to stand and progress as able. Hip strength
--- NOTE | 2020-11-01 17:23 | PT.OTN ---
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 She states she can tolerate a lot of pain but it is getting worse. Activity seems to increase her pain but pt remains active - in part due to personality and in part due to many responsibilities including her dogs. Pain wakes her up and interrupts her sleep. She has difficulty with functional tasks such as vacuuming, bending over to clean a toilet. She reports three falls since late last year; she has fallen on her hips and on her tailbone. Pt states she prefers not to wear shoes and complains of hot spots when she does wear shoes. Pt has had some housing insecurity in the past but is currently living at her sister 's house which has three levels. Pt will do stairs but I pay for it afterward. CBD oils and creams help but no relief lasts very long. Pt reports fair sleep hygiene and states her dogs are good for keeping a schedule. 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 Prior Treatments and Tests 09/21/20 lumbar spine x-ray: No acute fracture. Multilevel degenerative endplate sclerosis and spurring. Diffuse facet arthropathy. Grade 2 anterolisthesis of L5 on S1 is unchanged. Severe narrowing of the L5-S1 disc space. Lucency projects in the region of the L5 pars interarticularis. There is mild narrowing of the remaining lumbar disc spaces. Minimal dextrocurvature. 09/21/20 Thoracic spine x-ray: Mild age-indeterminate compression fracture of the T4 vertebral body. PT for right groin pain in 2019. R shoulder surgery. Treatment Goals Patient/Caregiver Goals Pt would like to walk her dogs with more confidence. She would like to reduce or learn to manage her pain. Personal Factors Other Personal Factors That May Effect Osteoporosis, history of Therapy/Recovery housing insecurity (was previously camping for extended periods of time) but now stays with her sister. PT-OP-C Subjective Start: 09/25/20 13:12 Freq: Status: Active Protocol: Document 11/01/20 15:12 AW (Rec: 11/01/20 15:14 AW [id number]) OP-PT Subjective Patient Comments Patient Comments I'm still not sleeping very well. Feeling better during the day but achy at night. Patient Reported Progress Improving PT-OP-D Balance Start: 09/25/20 13:12 Freq: Status: Active Protocol: Document 09/25/20 16:00 AW (Rec: 09/25/20 17:20 AW [email or web address]) OP-PT Balance Assessment Sitting Balance Static Sitting Balance Ability Normal Dynamic Sitting Balance Ability Good Standing Balance Static Standing Balance Ability Good Dynamic Standing Balance Ability Fair Device Used no AD Mckeon Fall Scale Copyright Permission PT-OP-F Manual Assessment Start: 09/25/20 13:12 Freq: Status: Active Protocol: Document 09/25/20 16:00 AW (Rec: 09/25/20 17:31 AW [email or web address]) Manual Assessments Soft Tissue Assessment Soft Tissue Mobility Assessment Tenderness over bilateral greater trochanters and right groin Joint Mobility Assessment Joint Mobility Assessment Fair mobility with hip posterior glides. PT-OP-K Range of Motion Start: 09/25/20 13:12 Freq: Status: Active Protocol: Document 09/25/20 16:00 AW (Rec: 09/25/20 17:31 AW [email or web address]) Lumbar Spine Range of Motion Lumbar Spine Active Testing Position Standing Flexion 65 Extension 15 Comments Lateral flexion with fingertips to knee joint bilaterally. Rotation WNL without pain Hip Goniometric Range of Motion Hip Passive Testing Position Supine Straight Leg Raise 75 Internal Rotation 45 External Rotation 45 Comments pain with SLR RLE Hip ROM Limitations Hip ROM Limitations Pain PT-OP-L Special Tests Start: 09/25/20 13:12 Freq: Status: Active Protocol: Document 09/25/20 16:00 AW (Rec: 09/25/20 17:31 AW [email or web address]) Special Tests Hip Special Tests Michael Test Results thigh parallel to floor bilaterally Scour Test Test Results positive bilaterally Comments LLE scour results in achey pain in both hips Knee Special Tests Yolande's Test Test Results right positive Comments thigh just past horizontal Neural Special Tests- Lower Body Sciatic Nerve Tension Test Results negative bilaterally PT-OP-M Strength Start: 09/25/20 13:12 Freq: Status: Active Protocol: Document 09/25/20 16:00 AW (Rec: 09/25/20 17:32 AW [email or web address]) Hip Strength Hip Manual Muscle Testing Right Flexion (L2) 4- Good- Extension (S1) 4 Good Abduction 4 Good Adduction 4 Good Left Flexion (L2) 4 Good Extension (S1) 4 Good Abduction 4 Good Adduction 4 Good External Rotation 4 Good Internal Rotation 4 Good PT-OP-Q Treatments Start: 09/25/20 13:12 Freq: Status: Active Protocol: Document 11/01/20 15:12 AW (Rec: 11/01/20 15:14 AW [id number]) Cardio Equipment Recumbent Bicycle Duration (Minutes) 5 Resistance 5 Seat Position 2 Other lumbar pillow Therapeutic Exercises Supine Exercises iso hip flexion Supine Exercise Name iso hip flexion Resistance self, manual Reps/Minutes 5SH x 5 Comments alternating with hip add squeeze ITB stretch Supine Exercise Name ITB stretch Comments legs crossed at knees, loop puller toward opposite side piriformis stretch Supine Exercise Name piriformis stretch Side bilateral Resistance R>L Reps/Minutes 30 SH x 4 Comments with manual overpressuire bridge Supine Exercise Name bridge Reps/Minutes x10 Comments short lift from table hip adduction squeeze Supine Exercise Name hip adduction squeeze Equipment Used green ball Reps/Minutes 2 x 10 Standing Exercises step ups Standing Exercise Name step ups - fwd/lateral Side bilateral Equipment Used 4 step Reps/Minutes x12 hip hike Standing Exercise Name hip hike Side bilateral Equipment Used 4 step Reps/Minutes x12 Comments cues for PPT; HEP Therapeutic Activity Therapeutic Activity diaphragmatic breathing Name diaphragmatic breathing Comments Incorporated into all exercise . Manual Therapy Treatment Joint Mobilizations B hip long axis traction Joint B hip long axis traction Grade III Body Position Supine Reps/Duration 3 min Comments good feedback. incorporated diaphrag breathing R hip mobes Direction lateral Grade II Body Position Hooklying Reps/Duration 60 hold x3 Comments Instructed use of breath. PT-OP-R Modalities Start: 09/25/20 13:12 Freq: Status: Active Protocol: Document 10/02/20 10:32 MA (Rec: 10/02/20 11:23 MA [id number]) Hot Pack/Cold Pack Treatment Ice pack Location lumbar and thoracic spine Patient Position Hooklying Treatment Duration (minutes) 10 Patient Tolerance Good Comments pt requested ice vs heat PT-OP-T Assessment and Plan Start: 09/25/20 13:12 Freq: Status: Active Protocol: Document 11/01/20 15:12 AW (Rec: 11/01/20 17:23 AW [email or web address]) Physical Therapy Assessment Goals Four Impairment falls Intermediate Goal (LTG) Pt will score WNL on Dynamic Gait Index to demonstrate reduction in falls risk. LTG Duration 2 months - 11/25/20 Three Impairment pain limits activity Intermediate Goal (LTG) Pt will walk her dogs 20 minutes without increase in baseline pain LTG Duration 2 months - 11/25/20 Two Impairment lacks HEP Short Term Goal (STG) Pt will be independent with HEP for pain reduction and to support therapy services provided in clinic. 10/23/20 MET STG Duration 4 weeks - 10/23/20 Special Needs Tutor Goal (LTG) Pt will be independent with maintenance HEP to prevent and mange her pain. LTG Duration 2 months - 11/25/20 One Impairment chronic pain Short Term Goal (STG) Pt will be educated in physiologic quieting techniques for improved self- efficacy. 10/23/20 - Pt demonstrates good understanding of principles but requires frequent cues to incorporate pain mgmt techniques into exercise. 10/30/20 - MET Pt routinely incorporates diaphragmatic breathing into exercise and daily activities. STG Duration 4 weeks - 10/23/20 Special Needs Tutor Goal (LTG) Pt will score in moderate risk category on Oniel STarT Back screening tool to demonstate reduced fear avoidance and improved self-efficacy. LTG Duration 2 months - 11/25/20 Assessment Summary Assessment Pt continues to report less diffuse pain. She tolerated more standing exercise today and will add to her HEP. Physical Therapy Plan Frequency and Duration Frequency of Treatment 1-2x/week Duration of Treatment 2 months Plan of Care Start Date 09/25/20 Plan of Care End Date 11/25/20 Therapeutic Interventions Therapeutic Interventions Balance Training,Gait Training ,Home Exercise Program,Manual Therapy,Neuromuscular Re- education,Self-Care/Home Management,Therapeutic Activities,Therapeutic Exercises Modalities Cold Pack/Ice Massage,Electric Stimulation,Hot Packs Next Visit Focus/Plan Next Note Type Treatment Note Next Visit Plan Continue sit to stand and progress as able. Hip strength . SLS, balance.
--- NOTE | 2020-11-13 16:25 | PT.OTN ---
Current Diagnoses Low back pain (11/13/20) Dorsalgia, unspecified (11/13/20) Difficulty in walking, not elsewhere classified (11/13/20) Physical Therapy Treatment Note PT-OP-A Visit Information Start: 09/25/20 13:12 Freq: Status: Active Protocol: Document 11/13/20 15:15 AW (Rec: 11/13/20 15:15 AW [id number]) Out-Patient Physical Therapy Visit Information Visit Information Visit Type Treatment Note Visit Start Time 14:30 Visit Stop Time 15:10 Total Visit Minutes 40 Evaluation Information Evaluation Date 09/25/20 Precautions Precautions osteoporosis PT-OP-B Current Condition Start: 09/25/20 13:12 Freq: Status: Active Protocol: Document 09/25/20 16:00 AW (Rec: 09/25/20 13:59 AW [email or web address]) Current Condition History of Current Condition Onset Date chronic with recent exacerbation Current Complaints low back pain; bilateral hip pain (R worse than L); difficulty walking History of Current Condition Pt deals with chronic low back and bilteral hip pain. She states she can tolerate a lot of pain but it is getting worse. Activity seems to increase her pain but pt remains active - in part due to personality and in part due to many responsibilities including her dogs. Pain wakes her up and interrupts her sleep. She has difficulty with functional tasks such as vacuuming, bending over to clean a toilet. She reports three falls since late last year; she has fallen on her hips and on her tailbone. Pt states she prefers not to wear shoes and complains of hot spots when she does wear shoes. Pt has had some housing insecurity in the past but is currently living at her sister 's house which has three levels. Pt will do stairs but I pay for it afterward. CBD oils and creams help but no relief lasts very long. Pt reports fair sleep hygiene and states her dogs are good for keeping a schedule. 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 Prior Treatments and Tests 09/21/20 lumbar spine x-ray: No acute fracture. Multilevel degenerative endplate sclerosis and spurring. Diffuse facet arthropathy. Grade 2 anterolisthesis of L5 on S1 is unchanged. Severe narrowing of the L5-S1 disc space. Lucency projects in the region of the L5 pars interarticularis. There is mild narrowing of the remaining lumbar disc spaces. Minimal dextrocurvature. 09/21/20 Thoracic spine x-ray: Mild age-indeterminate compression fracture of the T4 vertebral body. PT for right groin pain in 2019. R shoulder surgery. Treatment Goals Patient/Caregiver Goals Pt would like to walk her dogs with more confidence. She would like to reduce or learn to manage her pain. Personal Factors Other Personal Factors That May Effect Osteoporosis, history of Therapy/Recovery housing insecurity (was previously camping for extended periods of time) but now stays with her sister. PT-OP-C Subjective Start: 09/25/20 13:12 Freq: Status: Active Protocol: Document 11/13/20 15:15 AW (Rec: 11/13/20 16:22 AW [email or web address]) OP-PT Subjective Patient Comments Patient Comments Since I last saw you, I moved into my own place which means less stairs and less driving for me. Patient Reported Progress Same PT-OP-D Balance Start: 09/25/20 13:12 Freq: Status: Active Protocol: Document 09/25/20 16:00 AW (Rec: 09/25/20 17:20 AW [email or web address]) OP-PT Balance Assessment Sitting Balance Static Sitting Balance Ability Normal Dynamic Sitting Balance Ability Good Standing Balance Static Standing Balance Ability Good Dynamic Standing Balance Ability Fair Device Used no AD Mckeon Fall Scale Copyright Permission PT-OP-F Manual Assessment Start: 09/25/20 13:12 Freq: Status: Active Protocol: Document 09/25/20 16:00 AW (Rec: 09/25/20 17:31 AW [email or web address]) Manual Assessments Soft Tissue Assessment Soft Tissue Mobility Assessment Tenderness over bilateral greater trochanters and right groin Joint Mobility Assessment Joint Mobility Assessment Fair mobility with hip posterior glides. PT-OP-K Range of Motion Start: 09/25/20 13:12 Freq: Status: Active Protocol: Document 09/25/20 16:00 AW (Rec: 09/25/20 17:31 AW [email or web address]) Lumbar Spine Range of Motion Lumbar Spine Active Testing Position Standing Flexion 65 Extension 15 Comments Lateral flexion with fingertips to knee joint bilaterally. Rotation WNL without pain Hip Goniometric Range of Motion Hip Passive Testing Position Supine Straight Leg Raise 75 Internal Rotation 45 External Rotation 45 Comments pain with SLR RLE Hip ROM Limitations Hip ROM Limitations Pain PT-OP-L Special Tests Start: 09/25/20 13:12 Freq: Status: Active Protocol: Document 09/25/20 16:00 AW (Rec: 09/25/20 17:31 AW [email or web address]) Special Tests Hip Special Tests Michael Test Results thigh parallel to floor bilaterally Scour Test Test Results positive bilaterally Comments LLE scour results in achey pain in both hips Knee Special Tests Yolande's Test Test Results right positive Comments thigh just past horizontal Neural Special Tests- Lower Body Sciatic Nerve Tension Test Results negative bilaterally PT-OP-M Strength Start: 09/25/20 13:12 Freq: Status: Active Protocol: Document 09/25/20 16:00 AW (Rec: 09/25/20 17:32 AW [email or web address]) Hip Strength Hip Manual Muscle Testing Right Flexion (L2) 4- Good- Extension (S1) 4 Good Abduction 4 Good Adduction 4 Good Left Flexion (L2) 4 Good Extension (S1) 4 Good Abduction 4 Good Adduction 4 Good External Rotation 4 Good Internal Rotation 4 Good PT-OP-Q Treatments Start: 09/25/20 13:12 Freq: Status: Active Protocol: Document 11/13/20 15:15 AW (Rec: 11/13/20 15:15 AW [id number]) Cardio Equipment Recumbent Bicycle Duration (Minutes) 5 Resistance 3 Seat Position 3 Other lumbar pillow; dec tolerance today Therapeutic Exercises Supine Exercises ITB stretch Supine Exercise Name ITB stretch Comments legs crossed at knees, tack puller toward opposite side piriformis stretch Supine Exercise Name piriformis stretch Side bilateral Resistance L>R Reps/Minutes 30 SH x 4 Comments with manual overpressuire DKTC Supine Exercise Name DKTC and SKTC Side bilateral Reps/Minutes 1' x 2 bridge Supine Exercise Name bridge Reps/Minutes x15 Comments short lift from table; inc excursion today Other Exercises sit to stand Other Exercise Name sit to stand Equipment Used mesh chair; mesh chair with blue foam under feet Reps/Minutes 10 minutes Comments focus hip drive, stability, power Therapeutic Activity Therapeutic Activity diaphragmatic breathing Name diaphragmatic breathing Comments Incorporated into all exercise . Gait Training Gait Activity level surface no AD Level of Assistance SBA Surface carpet, tile Distance/Duration 8 minutes Treatment Focus WENDI, path maintenance Comments Pt ambulates with wide WENDI and tends to drift left. Focused on narrowing WENDI during three laps around gym and several 100' passes in long hallway. PT-OP-R Modalities Start: 09/25/20 13:12 Freq: Status: Active Protocol: Document 10/02/20 10:32 MA (Rec: 10/02/20 11:23 MA [id number]) Hot Pack/Cold Pack Treatment Ice pack Location lumbar and thoracic spine Patient Position Hooklying Treatment Duration (minutes) 10 Patient Tolerance Good Comments pt requested ice vs heat PT-OP-T Assessment and Plan Start: 09/25/20 13:12 Freq: Status: Active Protocol: Document 11/13/20 15:15 AW (Rec: 11/13/20 16:22 AW [email or web address]) Physical Therapy Assessment Goals Four Impairment falls Fpc Goal (LTG) Pt will score WNL on Dynamic Gait Index to demonstrate reduction in falls risk. LTG Duration 2 months - 11/25/20 Three Impairment pain limits activity Fpc Goal (LTG) Pt will walk her dogs 20 minutes without increase in baseline pain LTG Duration 2 months - 11/25/20 Two Impairment lacks HEP Short Term Goal (STG) Pt will be independent with HEP for pain reduction and to support therapy services provided in clinic. 10/23/20 MET STG Duration 4 weeks - 10/23/20 Desulfurizer Machine Goal (LTG) Pt will be independent with maintenance HEP to prevent and mange her pain. LTG Duration 2 months - 11/25/20 One Impairment chronic pain Short Term Goal (STG) Pt will be educated in physiologic quieting techniques for improved self- efficacy. 10/23/20 - Pt demonstrates good understanding of principles but requires frequent cues to incorporate pain mgmt techniques into exercise. 10/30/20 - MET Pt routinely incorporates diaphragmatic breathing into exercise and daily activities. STG Duration 4 weeks - 10/23/20 Fpc Goal (LTG) Pt will score in moderate risk category on Oniel STarT Back screening tool to demonstate reduced fear avoidance and improved self-efficacy. LTG Duration 2 months - 11/25/20 Assessment Summary Assessment Pt reports more centralized pain since last visit. She moved to a house with no stairs so has not been able to do new standing exercises added last visit. She increased her excursion in bridging and tolerated increased challenge in sit to stand. She was also able to increase speed in sit to stand on even and uneven surfaces. Physical Therapy Plan Frequency and Duration Frequency of Treatment 1-2x/week Duration of Treatment 2 months Plan of Care Start Date 09/25/20 Plan of Care End Date 11/25/20 Therapeutic Interventions Therapeutic Interventions Balance Training,Gait Training ,Home Exercise Program,Manual Therapy,Neuromuscular Re- education,Self-Care/Home Management,Therapeutic Activities,Therapeutic Exercises Modalities Cold Pack/Ice Massage,Electric Stimulation,Hot Packs Next Visit Focus/Plan Next Note Type Treatment Note Next Visit Plan Continue sit to stand and progress as able. Hip strength . SLS, balance. Reassess goals soon, including DGI
--- NOTE | 2020-11-15 14:45 | PT-OP ANOTE ---
Pt did not show for today's appt. PATIENT RELATIONS SPECIALIST called her and she was thinking her next appt was next Thu with PT, confirmed next Thu appt. Pt stated she was still sore from last appt and not sure pushing it with all activity with moving has been benificial. PATIENT RELATIONS SPECIALIST notified her of missed appt today and will probably be charged a NS fee. PATIENT RELATIONS SPECIALIST offered am/ pm openings had for tomorrow but pt stated didn't have the finances to do both (pay NS fee and still attend another appt tomorrow) and wanted to know if can reverse today's fee to be seen tomorrow instead. PATIENT RELATIONS SPECIALIST transferred pt's call up to front desk worker and was transferred to pt accounts to ask answer to that question of reverse NS fee.
--- NOTE | 2020-11-21 13:56 | PT.OTN ---
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 She states she can tolerate a lot of pain but it is getting worse. Activity seems to increase her pain but pt remains active - in part due to personality and in part due to many responsibilities including her dogs. Pain wakes her up and interrupts her sleep. She has difficulty with functional tasks such as vacuuming, bending over to clean a toilet. She reports three falls since late last year; she has fallen on her hips and on her tailbone. Pt states she prefers not to wear shoes and complains of hot spots when she does wear shoes. Pt has had some housing insecurity in the past but is currently living at her sister 's house which has three levels. Pt will do stairs but I pay for it afterward. CBD oils and creams help but no relief lasts very long. Pt reports fair sleep hygiene and states her dogs are good for keeping a schedule. 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 Prior Treatments and Tests 09/21/20 lumbar spine x-ray: No acute fracture. Multilevel degenerative endplate sclerosis and spurring. Diffuse facet arthropathy. Grade 2 anterolisthesis of L5 on S1 is unchanged. Severe narrowing of the L5-S1 disc space. Lucency projects in the region of the L5 pars interarticularis. There is mild narrowing of the remaining lumbar disc spaces. Minimal dextrocurvature. 09/21/20 Thoracic spine x-ray: Mild age-indeterminate compression fracture of the T4 vertebral body. PT for right groin pain in 2019. R shoulder surgery. Treatment Goals Patient/Caregiver Goals Pt would like to walk her dogs with more confidence. She would like to reduce or learn to manage her pain. Personal Factors Other Personal Factors That May Effect Osteoporosis, history of Therapy/Recovery housing insecurity (was previously camping for extended periods of time) but now stays with her sister. PT-OP-C Subjective Start: 09/25/20 13:12 Freq: Status: Active Protocol: Document 11/21/20 13:40 AW (Rec: 11/21/20 13:44 AW [id number]) OP-PT Subjective Patient Comments Patient Comments That last treatment was really too much. I hurt bad after that. PT-OP-D Balance Start: 09/25/20 13:12 Freq: Status: Active Protocol: Document 09/25/20 16:00 AW (Rec: 09/25/20 17:20 AW [email or web address]) OP-PT Balance Assessment Sitting Balance Static Sitting Balance Ability Normal Dynamic Sitting Balance Ability Good Standing Balance Static Standing Balance Ability Good Dynamic Standing Balance Ability Fair Device Used no AD Mckeon Fall Scale Copyright Permission PT-OP-F Manual Assessment Start: 09/25/20 13:12 Freq: Status: Active Protocol: Document 09/25/20 16:00 AW (Rec: 09/25/20 17:31 AW [email or web address]) Manual Assessments Soft Tissue Assessment Soft Tissue Mobility Assessment Tenderness over bilateral greater trochanters and right groin Joint Mobility Assessment Joint Mobility Assessment Fair mobility with hip posterior glides. PT-OP-K Range of Motion Start: 09/25/20 13:12 Freq: Status: Active Protocol: Document 09/25/20 16:00 AW (Rec: 09/25/20 17:31 AW [email or web address]) Lumbar Spine Range of Motion Lumbar Spine Active Testing Position Standing Flexion 65 Extension 15 Comments Lateral flexion with fingertips to knee joint bilaterally. Rotation WNL without pain Hip Goniometric Range of Motion Hip Passive Testing Position Supine Straight Leg Raise 75 Internal Rotation 45 External Rotation 45 Comments pain with SLR RLE Hip ROM Limitations Hip ROM Limitations Pain PT-OP-L Special Tests Start: 09/25/20 13:12 Freq: Status: Active Protocol: Document 09/25/20 16:00 AW (Rec: 09/25/20 17:31 AW [email or web address]) Special Tests Hip Special Tests Michael Test Results thigh parallel to floor bilaterally Scour Test Test Results positive bilaterally Comments LLE scour results in achey pain in both hips Knee Special Tests Yolande's Test Test Results right positive Comments thigh just past horizontal Neural Special Tests- Lower Body Sciatic Nerve Tension Test Results negative bilaterally PT-OP-M Strength Start: 09/25/20 13:12 Freq: Status: Active Protocol: Document 09/25/20 16:00 AW (Rec: 09/25/20 17:32 AW [email or web address]) Hip Strength Hip Manual Muscle Testing Right Flexion (L2) 4- Good- Extension (S1) 4 Good Abduction 4 Good Adduction 4 Good Left Flexion (L2) 4 Good Extension (S1) 4 Good Abduction 4 Good Adduction 4 Good External Rotation 4 Good Internal Rotation 4 Good PT-OP-Q Treatments Start: 09/25/20 13:12 Freq: Status: Active Protocol: Document 11/21/20 13:40 AW (Rec: 11/21/20 13:44 AW [id number]) Cardio Equipment Recumbent Bicycle Other pt declines today; thought it hurt last time Therapeutic Exercises Supine Exercises hip/knee flexion Supine Exercise Name hip/knee flexion Equipment Used 45 cm ball LTR Supine Exercise Name LTR on 45 cm ball Reps/Minutes x15 piriformis stretch Supine Exercise Name piriformis stretch w/opp foot up Side bilateral Resistance L>R Reps/Minutes 30 SH x 4 DKTC Supine Exercise Name DKTC and SKTC Side bilateral Reps/Minutes 1' x 2 bridge Supine Exercise Name bridge Reps/Minutes x15 Comments short lift from table; inc excursion today Other Exercises sit to stand Other Exercise Name sit to stand Equipment Used mesh chair Reps/Minutes 8 reps Comments focus hip drive, stability, power Therapeutic Activity Therapeutic Activity diaphragmatic breathing Name diaphragmatic breathing Comments Incorporated into all exercise . Gait Training Gait Activity FGA Description DGI Device Used no AD Level of Assistance SBA Surface level --tile and carpet Distance/Duration 8 min Treatment Focus re-assessment Comments . See scanned copy. Consider FGA at next appointment Manual Therapy Treatment Joint Mobilizations B hip long axis traction Joint B hip long axis traction Grade III Body Position Supine Reps/Duration 3 min Comments good feedback. incorporated diaphrag breathing PT-OP-R Modalities Start: 09/25/20 13:12 Freq: Status: Active Protocol: Document 10/02/20 10:32 MA (Rec: 10/02/20 11:23 MA [id number]) Hot Pack/Cold Pack Treatment Ice pack Location lumbar and thoracic spine Patient Position Hooklying Treatment Duration (minutes) 10 Patient Tolerance Good Comments pt requested ice vs heat PT-OP-T Assessment and Plan Start: 09/25/20 13:12 Freq: Status: Active Protocol: Document 11/21/20 13:40 AW (Rec: 11/21/20 13:56 AW [email or web address]) Physical Therapy Assessment Goals Four Impairment falls Correction Goal (LTG) Pt will score WNL on Dynamic Gait Index to demonstrate reduction in falls risk. 11/21/20 - Pt scores 23/24 on DGI. New LTG: Improve FGA to 25/30 or better as a measure of decreased falls risk. LTG Duration 1 months - 12/28/20 Three Impairment pain limits activity Director Of Engineering Goal (LTG) Pt will walk her dogs 20 minutes without increase in baseline pain 11/21/20 - Pt reports dogs are too distracting and pull too much. Goal updated to Pt will walk 20 minutes without increase in baseline pain. LTG Duration 1 months - 12/28/20 Two Impairment lacks HEP Short Term Goal (STG) Pt will be independent with HEP for pain reduction and to support therapy services provided in clinic. 10/23/20 MET STG Duration 4 weeks - 10/23/20 Correction Goal (LTG) Pt will be independent with maintenance HEP to prevent and mange her pain. 11/21/20 PROGRESSING LTG Duration 2 months - 11/25/20 One Impairment chronic pain Short Term Goal (STG) Pt will be educated in physiologic quieting techniques for improved self- efficacy. 10/23/20 - Pt demonstrates good understanding of principles but requires frequent cues to incorporate pain mgmt techniques into exercise. 10/30/20 - MET Pt routinely incorporates diaphragmatic breathing into exercise and daily activities. STG Duration 4 weeks - 10/23/20 Director Of Engineering Goal (LTG) Pt will score in moderate risk category on Oniel STarT Back screening tool to demonstate reduced fear avoidance and improved self-efficacy. 11/21/20 - Pt remains in high risk category. Continue toward goal LTG Duration 2 months - 12/28/20 Progress Towards Goals Progress Towards Goals Progressing Toward Goals,Slow Progress - Other Progress Comments Progress has been slow which is at least in part attributable to high risk of catastrophization as demonstrated by high risk score on Oniel STarT Back tool . Pt is expected to benefit from continued therapy to address physiological quieting and to improve her low back and hip pain symptoms. Assessment Summary Assessment Pt continues to report low back and hip pain with longer distance ambulation. Today, she scores in high risk category on Oniel STarT Back tool, indicating high risk of catastrophization.She responds well to hip mobility exercises and gentle strengthening. Physical Therapy Plan Frequency and Duration Frequency of Treatment 1-2x/week Duration of Treatment 2 months Plan of Care Start Date 09/25/20 Plan of Care End Date 12/28/20 Therapeutic Interventions Therapeutic Interventions Balance Training,Gait Training ,Home Exercise Program,Manual Therapy,Neuromuscular Re- education,Self-Care/Home Management,Therapeutic Activities,Therapeutic Exercises Modalities Cold Pack/Ice Massage,Electric Stimulation,Hot Packs Next Visit Focus/Plan Next Note Type Treatment Note Next Visit Plan Continue sit to stand and progress as able. Hip strength . SLS, balance. Reassess FGA.
--- NOTE | 2020-12-20 08:37 | PT.OPDS ---
Current Diagnoses Low back pain (11/21/20) Dorsalgia, unspecified (11/21/20) Difficulty in walking, not elsewhere classified (11/21/20) Visit Care Team Role Provider Type DERIC Khan Attending Provider [facility] [employer] [facility] Associate Primary Care Provider Referring Provider Specialty: Family Practice Address: [address] [place] [address], [id number] Email: [email or web address] Visit Number Visit Number 12 Discharge Summary PT-OP-B Current Condition Start: 09/25/20 13:12 Freq: Status: Active Protocol: Document 09/25/20 16:00 AW (Rec: 09/25/20 13:59 AW [email or web address]) Current Condition History of Current Condition Onset Date chronic with recent exacerbation Current Complaints low back pain; bilateral hip pain (R worse than L); difficulty walking History of Current Condition Pt deals with chronic low back and bilteral hip pain. She states she can tolerate a lot of pain but it is getting worse. Activity seems to increase her pain but pt remains active - in part due to personality and in part due to many responsibilities including her dogs. Pain wakes her up and interrupts her sleep. She has difficulty with functional tasks such as vacuuming, bending over to clean a toilet. She reports three falls since late last year; she has fallen on her hips and on her tailbone. Pt states she prefers not to wear shoes and complains of hot spots when she does wear shoes. Pt has had some housing insecurity in the past but is currently living at her sister 's house which has three levels. Pt will do stairs but I pay for it afterward. CBD oils and creams help but no relief lasts very long. Pt reports fair sleep hygiene and states her dogs are good for keeping a schedule. 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 Prior Treatments and Tests 09/21/20 lumbar spine x-ray: No acute fracture. Multilevel degenerative endplate sclerosis and spurring. Diffuse facet arthropathy. Grade 2 anterolisthesis of L5 on S1 is unchanged. Severe narrowing of the L5-S1 disc space. Lucency projects in the region of the L5 pars interarticularis. There is mild narrowing of the remaining lumbar disc spaces. Minimal dextrocurvature. 09/21/20 Thoracic spine x-ray: Mild age-indeterminate compression fracture of the T4 vertebral body. PT for right groin pain in 2019. R shoulder surgery. Treatment Goals Patient/Caregiver Goals Pt would like to walk her dogs with more confidence. She would like to reduce or learn to manage her pain. Personal Factors Other Personal Factors That May Effect Osteoporosis, history of Therapy/Recovery housing insecurity (was previously camping for extended periods of time) but now stays with her sister. PT-OP-C Subjective Start: 09/25/20 13:12 Freq: Status: Active Protocol: Document 11/21/20 13:40 AW (Rec: 11/21/20 13:44 AW [id number]) OP-PT Subjective Patient Comments Patient Comments That last treatment was really too much. I hurt bad after that. PT-OP-D Balance Start: 09/25/20 13:12 Freq: Status: Active Protocol: Document 09/25/20 16:00 AW (Rec: 09/25/20 17:20 AW [email or web address]) OP-PT Balance Assessment Sitting Balance Static Sitting Balance Ability Normal Dynamic Sitting Balance Ability Good Standing Balance Static Standing Balance Ability Good Dynamic Standing Balance Ability Fair Device Used no AD Mckeon Fall Scale Copyright Permission PT-OP-F Manual Assessment Start: 09/25/20 13:12 Freq: Status: Active Protocol: Document 09/25/20 16:00 AW (Rec: 09/25/20 17:31 AW [email or web address]) Manual Assessments Soft Tissue Assessment Soft Tissue Mobility Assessment Tenderness over bilateral greater trochanters and right groin Joint Mobility Assessment Joint Mobility Assessment Fair mobility with hip posterior glides. PT-OP-K Range of Motion Start: 09/25/20 13:12 Freq: Status: Active Protocol: Document 09/25/20 16:00 AW (Rec: 09/25/20 17:31 AW [email or web address]) Lumbar Spine Range of Motion Lumbar Spine Active Testing Position Standing Flexion 65 Extension 15 Comments Lateral flexion with fingertips to knee joint bilaterally. Rotation WNL without pain Hip Goniometric Range of Motion Hip Passive Testing Position Supine Straight Leg Raise 75 Internal Rotation 45 External Rotation 45 Comments pain with SLR RLE Hip ROM Limitations Hip ROM Limitations Pain PT-OP-L Special Tests Start: 09/25/20 13:12 Freq: Status: Active Protocol: Document 09/25/20 16:00 AW (Rec: 09/25/20 17:31 AW [email or web address]) Special Tests Hip Special Tests Michael Test Results thigh parallel to floor bilaterally Scour Test Test Results positive bilaterally Comments LLE scour results in achey pain in both hips Knee Special Tests Yolande's Test Test Results right positive Comments thigh just past horizontal Neural Special Tests- Lower Body Sciatic Nerve Tension Test Results negative bilaterally PT-OP-M Strength Start: 09/25/20 13:12 Freq: Status: Active Protocol: Document 09/25/20 16:00 AW (Rec: 09/25/20 17:32 AW [email or web address]) Hip Strength Hip Manual Muscle Testing Right Flexion (L2) 4- Good- Extension (S1) 4 Good Abduction 4 Good Adduction 4 Good Left Flexion (L2) 4 Good Extension (S1) 4 Good Abduction 4 Good Adduction 4 Good External Rotation 4 Good Internal Rotation 4 Good PT-OP-T Assessment and Plan Start: 09/25/20 13:12 Freq: Status: Active Protocol: Document 12/20/20 08:37 AW (Rec: 12/20/20 08:37 AW [email or web address]) Physical Therapy Plan Discharge Physical Therapy Discharge Reasons Patient Request Discharge Comments Pt called to request discharge , stating she was feeling better and no longer wished to attend. Pt will need a new referral if she elects to return to PT.
== END 2020-12-20 14:15 ==
LOC: PHYS 13:00
PROVIDERS: PCP Nurse Practitioner Family; Referring Provider Nurse Practitioner Family; Visit Provider Nurse Practitioner Family
DX: M54.9 Dorsalgia, unspecified (principal); R26.2 Difficulty in walking, not elsewhere classified
CPT/HCPCS: 97110; 97116; 97140; 97162; 97530

== ENCOUNTER → 2021-05-23 09:02 | Outpatient (CLI) | payer OTHER, MEDICAID, SELFPAY ==
--- NOTE | 2021-05-23 09:26 | DI.RAD.S_ITS ---
PROCEDURE: XR HIP W PEL IF DONE RT 2V INDICATIONS: Right hip pain TECHNIQUE: AP pelvis with lateral view(s) of the right hip(s). COMPARISON: [facility], , HIP 2V RIGHT, 06/07/2014, 9:57. FINDINGS: Bones: No fractures or dislocations. Pelvic ring appears intact. No suspicious bony lesions. Soft tissues: The visualized bowel gas pattern is normal. No suspicious soft tissue calcifications. IMPRESSION: No evidence acute bony abnormality of the pelvis and right hip. If clinical suspicion and/or symptoms persist, further assessment with repeat plain films, or advanced imaging (e.g., CT, MRI, or bone scan) may be helpful for further assessment. Dictated by: Mirza Centeno M.D. on 05/23/2021 at 11:59 Approved by: Mirza Centeno M.D. on 05/23/2021 at 12:00
[2021-05-23 10:19] LABS: Hematocrit 42.1 % (36-46); Hemoglobin 14.4 g/dL (12.0-16.0); Mean Corpuscular HGB Conc 34.3 % (30-36); Mean Corpuscular Hemoglobin 33.8 PG (26-34); Mean Corpuscular Volume 98.6 fL (80-100); Platelet Count 327 X10^3/uL (150-400); Red Blood Cell Count 4.27 X10^6/uL (4.0-5.2); Red Cell Distribution Width 12.8 % (11.6-14.8); White Blood Cell Count 5.6 X10^3/uL (4.5-11.0)
[2021-05-23 10:51] LABS: HEMOLYSIS < 15 (0-50); Iron 222 ug/dL (37-170)
[2021-05-23 10:59] LABS: Alanine Aminotransferase 15 IU/L (<35); Albumin 4.6 g/dL (3.5-5.0); Albumin Globulin Ratio 1.8 (1.0-2.8); Alkaline Phosphatase 46 U/L (38-126); Aspartate Aminotransferase 23 IU/L (14-36); BUN Creatinine Ratio 22.4 (6-22); Bilirubin Total 0.7 mg/dL (0.2-1.3); Blood Urea Nitrogen 15 mg/dL (7-17); Calcium 9.5 mg/dL (8.4-10.2); Carbon Dioxide 28 mmol/L (22-32); Chloride 109 mmol/L (98-107); Cholesterol 225 mg/dL (140-199); Estimated Glomerular Filt Rate > 60 mL/min (>60); Globulin 2.5 g/dL (1.7-4.1); Glucose 99 mg/dL (80-110); HDL Cholesterol 62 mg/dL (40-60); HEMOLYSIS < 15 (0-50); LDL Cholesterol Calculated 135 mg/dL (<100); Potassium 4.3 mmol/L (3.4-5.1); Sodium 142 mmol/L (137-145); Total Protein 7.1 g/dL (6.3-8.2); Triglycerides 141 mg/dL (35-150)
[2021-05-23 11:01] LABS: Transferrin 291 mg/dL (206-381)
[2021-05-23 11:02] LABS: Percent Iron Saturation 60 % (15-50); Total Iron Binding Capacity 370 ug/dL (265-497)
[2021-05-23 11:10] LABS: Neutrophils Absolute Manual 2520 /uL (3000-5900); Total Cells Counted 100
[2021-05-23 11:11] LABS: RBC Morphology Normal Morphology
[2021-05-23 11:40] LABS: Vitamin B12 247 pg/mL (239-931)
== END ==
PROVIDERS: PCP Family Medicine; Referring Provider Family Medicine; Visit Provider Family Medicine
DX: M43.00 Spondylolysis, site unspecified (principal); D51.0 Vitamin B12 deficiency anemia due to intrinsic factor deficiency; K22.70 Barrett's esophagus without dysplasia
CPT/HCPCS: 36415; 73502; 80053; 80061; 82607; 83540; 83550; 85025

== ENCOUNTER → 2021-09-27 13:50 | Outpatient (CLI) | payer OTHER, MEDICAID, SELFPAY ==
[2021-09-27 18:22] LABS: Urine N gonorrhoeae NOT DETECTED
[2021-09-27 18:46] LABS: Urine Chlamydia NOT DETECTED
== END ==
PROVIDERS: PCP Family Medicine; Visit Provider Nurse Practitioner Critical Care Medicine
DX: N39.0 Urinary tract infection, site not specified (principal); N89.8 Other specified noninflammatory disorders of vagina; R30.0 Dysuria
CPT/HCPCS: 81002; 87086; 87210; 87491; 87591

== ENCOUNTER → 2022-03-12 10:31 | Outpatient (CLI) | payer OTHER, MEDICAID, SELFPAY ==
[2022-03-12 12:48] LABS: Add Manual Diff / Slide Review NO; Basophils Absolute Auto 100 /uL (0-100); Basophils Percent Auto 0.8 % (0-2); Eosinophils Absolute Auto 100 /uL (0-450); Eosinophils Percent Auto 1.1 % (2-4); Hemoglobin 13.8 g/dL (12.0-16.0); Lymphocytes Absolute Auto 2500 /uL (1100-4500); Lymphocytes Percent Auto 41.6 % (25-40); Mean Corpuscular HGB Conc 34.5 % (30-36); Mean Corpuscular Hemoglobin 33.4 PG (26-34); Mean Corpuscular Volume 96.9 fL (80-100); Monocytes Absolute Auto 400 /uL (0-900); Monocytes Percent Auto 7.1 % (3-14); Neutrophils Absolute Auto 3000 /uL (1500-7000); Neutrophils Percent Auto 49.4 % (50-75); Platelet Count 327 X10^3/uL (150-400); Red Blood Cell Count 4.13 X10^6/uL (4.0-5.2); White Blood Cell Count 6.1 X10^3/uL (4.5-11.0)
[2022-03-12 13:05] LABS: Hemoglobin A1C% w Est Avg Glu 5.1 % (4.0-6.0)
[2022-03-12 13:25] LABS: Alanine Aminotransferase 17 IU/L (<35); Albumin 4.8 g/dL (3.5-5.0); Albumin Globulin Ratio 1.8 (1.0-2.8); Alkaline Phosphatase 63 U/L (38-126); Aspartate Aminotransferase 22 IU/L (14-36); BUN Creatinine Ratio 21.7 (6-22); Bilirubin Total 0.5 mg/dL (0.2-1.3); Blood Urea Nitrogen 13 mg/dL (7-17); Calcium 9.3 mg/dL (8.4-10.2); Carbon Dioxide 25 mmol/L (22-32); Chloride 102 mmol/L (98-107); Cholesterol 233 mg/dL (140-199); Estimated Glomerular Filt Rate > 60 mL/min (>60); Globulin 2.7 g/dL (1.7-4.1); Glucose 102 mg/dL (80-110); HDL Cholesterol 66 mg/dL (40-60); HEMOLYSIS < 15 (0-50); LDL Cholesterol Calculated 134 mg/dL (<100); Potassium 4.1 mmol/L (3.4-5.1); Sodium 138 mmol/L (137-145); Total Protein 7.5 g/dL (6.3-8.2); Triglycerides 167 mg/dL (35-150)
== END ==
PROVIDERS: PCP Family Medicine; Referring Provider Family Medicine; Visit Provider Family Medicine
DX: D51.0 Vitamin B12 deficiency anemia due to intrinsic factor deficiency (principal); J43.8 Other emphysema; M43.00 Spondylolysis, site unspecified; M43.10 Spondylolisthesis, site unspecified; R53.83 Other fatigue
CPT/HCPCS: 36415; 80053; 80061; 83036; 84443; 85025

== ENCOUNTER 2022-06-14 23:50 | Emergency (ER) | payer OTHER, MEDICAID, SELFPAY ==
[2022-06-15 00:02] VITALS: BP 170/86; PULSE 88; RESP 16; TEMP 36.3; O2SAT 97; BMI 23.4
--- NOTE | 2022-06-15 00:31 | ED.BACK ---
HPI - Back Pain/Injury General Chief Complaint: Back Pain/Injury Stated Complaint: Lower back pain Time Seen by Provider: 06/15/22 00:01 Source: patient History of Present Illness HPI Narrative: 62-year-old female smoker with history of degenerative disc disease, back pain, chronic SI joint pain, fatigue, pernicious anemia presents with a chief complaint of gradually worsening low back pain since . She states that she has a long history of back pain and had previously been referred to orthopedics and has had physical therapy in the past but never anything surgical. She states that she was cleaning a couch a few days ago and while bending and twisting she felt something pull in her low back. Her pain is worse with motion and improves with rest. She states that she does get some radiation of pain down the outside of her right leg but denies any numbness, tingling or weakness. She denies any direct trauma, fevers or the use of blood thinners. She denies the loss of control of bowel or bladder. Related Data Home Medications Medication Instructions Recorded Confirmed [PROBIOTIC] 2 - 3 cap PO QDAY ##0 05/12/17 03/13/22 CBD Oil Tincture See Rx Instructions .Route .COMPLEX 07/27/18 03/13/22 Protein smoothie See Rx Instructions .Route .COMPLEX 07/27/18 03/13/22 Previous Rx's Medication Instructions Recorded pneumoc 13-rodger conj-dip cr(PF) 0.5 0.5 ml IM ONCE #0.5 mL 01/18/18 mL IM syringe bupropion HCl 75 mg tablet 75 mg PO DAILY #60 tabs 07/19/19 estradiol 0.01% (0.1 mg/gram) See Rx Instructions vaginal HS PRN 11/01/20 vaginal cream (Estrace) Atrophic vaginitis #42.5 grams calcitonin (salmon) 200 See Rx Instructions .Route 11/26/20 unit/actuation nasal spray .COMPLEX #3.7 mL cyanocobalamin (vitamin B-12) 1,000 mcg IM QMONTH anemia #10 mL 05/22/21 1,000 mcg/mL injection solution diclofenac sodium 1 % topical gel 2 g topical QID #100 grams 05/22/21 phenazopyridine 100 mg tablet 100 mg PO TID PRN pain 6 doses #7 09/27/21 (Pyridium) tabs albuterol sulfate 90 mcg/actuation 2 puff inhalation Q6H PRN 12/18/21 aerosol inhaler shortness of breath or wheezing #8 grams hydroxyzine HCl 25 mg tablet 25 mg PO BID PRN Anxiety, insomnia 12/18/21 #30 tabs fluticasone propionate 50 1 spray intranasal BID PRN allergy 05/08/22 mcg/actuation nasal symptoms #16 grams spray,suspension (Flonase Allergy Relief) ipratropium bromide 17 See Rx Instructions .Route 05/27/22 mcg/actuation HFA aerosol inhaler .COMPLEX #12.9 grams (Atrovent HFA) cyclobenzaprine 10 mg tablet 10 mg PO TID PRN muscle spasm #14 06/15/22 tabs gabapentin 300 mg capsule 300 mg PO BEDTIME #14 caps 06/15/22 ketorolac 10 mg tablet 10 mg PO Q6H PRN pain #14 tabs 06/15/22 methylprednisolone 4 mg tablets in See Rx Instructions PO .COMPLEX 06/15/22 a dose pack (Medrol (Ryan)) #21 ea Allergies Allergy/AdvReac Type Severity Reaction Status Date / Time Latex, Natural Rubber Allergy Mild REDNESS, Verified 06/15/22 00:02 [LATEX, NATURAL RUBBER] IRRITATION AND BLISTERS hydrocodone AdvReac Intermediate MAKES MY Verified 06/15/22 00:02 SKIN CRAWL AND ITCH. WIRES ME UP. codeine [CODEINE] AdvReac Mild makes my Verified 06/15/22 00:02 skin crawl Penicillins [PENICILLINS] AdvReac Mild UPSET Verified 06/15/22 00:02 STOMACH AND DIARRHEA Sulfa (Sulfonamide AdvReac Mild GI upset Verified 06/15/22 00:02 Antibiotics) [SULFA (SULFONAMIDE ANTIBIOTICS)] tramadol [TRAMADOL] AdvReac Mild UPPER Verified 06/15/22 00:02 RESPIRATORY ISSUES BUT TOLERABLE Review of Systems Review of Systems Narrative: GENERAL: Denies chills, fatigue, malaise, fever, sweats. HEENT: Denies sinus pain, ear pain, sore throat, difficulty swallowing, dizziness. RESPIRATORY: Denies dyspnea, cough, wheezing, hemoptysis, sputum. CARDIOVASCULAR: Denies chest pain, palpitations, orthopnea, edema, GASTROINTESTINAL: Denies nausea, vomiting, abdominal pain, diarrhea, constipation, melena. : Denies dysuria, frequency, incontinence, hematuria, urinary retention. MUSCULOSKELETAL: See HPI SKIN: Denies rash, skin lesions, or other NEUROLOGIC: See HPI PSYCHIATRIC: No concerning psychosocial issues. 12 point review of systems is negative except for those stated above Patient History Medical History Anxiety Arthritis Gutierrez's esophagus Chronic SI joint pain Current smoker Degeneration of intervertebral disc of cervical region (11/01/15) Depression Diverticulosis of large intestine without perforation or abscess with bleeding (10/08/15) Fatigue Foraminal stenosis of cervical region (11/01/15) Kidney stones (2008) Lumbar pain Mid back pain Migraines Osteoarthritis Osteoporosis Other emphysema (01/09/15) Pernicious anemia Pernicious anemia Right hip pain Spondylolysis with spondylolisthesis Tear of rotator cuff (08/31/14) Vaginal irritation Surgical History Status post laparoscopy (08/18/14) Status post tubal ligation Family History Father No problems noted. Mother Cancer Brother Cancer Gallstones Family/Other No problems noted. Family/Other Rheumatoid arthritis Social History Smoking Status: Current every day smoker Tobacco: How many years used: 30 quit status: quit date established second hand exposure: Yes alcohol intake: current substance use type: marijuana Smoking Status: Current every day smoker alcohol intake frequency: 0-2 drinks per day Alcohol type: wine Substance Use Type: does not use Exam Narrative Exam Narrative: GENERAL: [62] year old patient appears stated age. Well-developed patient, in mild distress. HEAD: Atraumatic. Normocephalic. EYES: Pupils equal round and reactive. Extraocular motions intact. No scleral icterus. No injection or drainage. ENT: Nose without bleeding, purulent drainage. Throat without erythema, tonsillar hypertrophy or exudate. Airway patent. NECK: Trachea midline. Non tender CARDIOVASCULAR: Regular rate and rhythm without murmurs, gallops, or rubs. RESPIRATORY: Clear to auscultation. Breath sounds equal bilaterally. No wheezes, rales, or rhonchi. GASTROINTESTINAL: Abdomen soft, non-tender, nondistended. EXTREMITIES: No edema or joint tenderness. 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 Patient exam notes decreased range of motion and muscle spasm, but no CVA tenderness, or vertebral point tenderness. There are no symptoms of cauda equina such as saddle anesthesia, and decreased reflexes, decreased sensation or strength. NEURO: AOx3. SKIN: No rash or erythema of visible areas Initial Vital Signs Initial Vital Signs: Vital Signs Temperature 97.4 F L 06/15/22 00:02 Pulse Rate 88 06/15/22 00:02 Respiratory Rate 16 06/15/22 00:02 Blood Pressure 170/86 H 06/15/22 00:02 Pulse Oximetry 97 06/15/22 00:02 Oxygen Delivery Method Room Air 06/15/22 00:02 Course Orders Ordered: Discontinued Medications Cyclobenzaprine HCl (Cyclobenzaprine 10 Mg Prepack) 1 bottle MISC SEEINSTR ONE Stop: 06/15/22 00:44 Ketorolac Tromethamine (Ketorolac 30 Mg/Ml Vial) 30 mg IM NOW ONE Stop: 06/15/22 00:44 Vital Signs Vital signs: Vital Signs - 8 hr 06/15/22 00:02 Temperature 97.4 F L Pulse Rate 88 Respiratory Rate 16 Blood Pressure 170/86 H Pulse Oximetry 97 Oxygen Delivery Method Room Air MDM - Back Pain/Injury MDM Narrative Medical decision making narrative: [62] year old patient presents with Multiple etiologies of back pain considered including but not limited to; Epidural abscess, cauda equina, mass occupying lesion, etc Prior Charts reviewed in our EMR Primary Historian: patient Patient's symptoms improved over duration of stay with above-stated therapies. She has no evidence of neurosurgical emergency such as saddle anesthesia, loss of bowel or bladder, lower extremity weakness, decreased reflexes, fever or the use of anticoagulants. Her symptoms are most consistent with muscle spasm, inflammation and likely a minor radiculopathy. She has allergies to the opioids and therefore we discussed the use of anti-inflammatories, Flexeril, a steroid taper and gabapentin. She was encouraged to follow closely with her primary care provider to see how these medications work and to make a plan moving forward which may include physical therapy, orthopedic referral, MRI or other. Findings and discharge diagnosis discussed with patient/family followed by verbalization of understanding Return precautions discussed with patient/family whom verbalize understanding of diagnosis and plan Discharge Plan Departure Patient Disposition: Home Clinical Impression: Lumbar radiculopathy Instructions: DI for Low Back Pain Activity Restrictions/Additional Instructions: *You have been diagnosed with [lumbar pain with mild radiculopathy. As we discussed your history and physical exam are reassuring and there is no evidence of a neurosurgical emergency at this time] *What to do: *Please continue to take your regular medications as directed. [x] New medication prescriptions sent to your pharmacy: [ [facility]] *Please follow up with your primary care provider in 2-3 days, call for an appointment. Let them know you were seen in the Emergency Department and that we ask that you be seen in follow up. We will electronically transmit a record of today's note if your PCP is in our system *Return to Emergency Department if you should have any new, worsening or concerning symptoms, such as [fever greater than 101 F, shaking chills, worsening pain, weakness of your legs, loss of control of bowel or bladder, or other bothersome symptoms Prescriptions: New cyclobenzaprine 10 mg tablet 10 mg PO TID PRN (Reason: muscle spasm) Qty: 14 0RF ketorolac 10 mg tablet 10 mg PO Q6H PRN (Reason: pain) Qty: 14 0RF gabapentin 300 mg capsule 300 mg PO BEDTIME Qty: 14 0RF methylprednisolone [Medrol (Ryan)] 4 mg tablets,dose pack See Rx Instructions .ROUTE .COMPLEX Qty: 21 0RF Rx Instructions: orally per package directions No Action phenazopyridine [Pyridium] 100 mg tablet 100 mg PO TID PRN (Reason: pain) Qty: 7 0RF pneumoc 13-rodger conj-dip cr(PF) 0.5 mL syringe 0.5 ml IM ONCE Qty: 0.5 0RF Rx Instructions: as a single dose [PROBIOTIC] 2 - 3 cap PO QDAY Qty: 0 bupropion HCl 75 mg tablet 75 mg PO DAILY Qty: 60 0RF estradiol [Estrace] 0.01 % (0.1 mg/gram) cream See Rx Instructions Vaginal HS PRN (Reason: Atrophic vaginitis) Qty: 42.5 0RF Dose Instruction: Pea size amount Vaginal HS PRN; Rx Instructions: Pea size amount Vaginal HS PRN; calcitonin (salmon) 200 unit/actuation spray,non-aerosol See Rx Instructions .ROUTE .COMPLEX Qty: 3.7 7RF Dose Instruction: instill 1 spray INTO ALTERNATING NOSTRILS ONCE DAILY Rx Instructions: instill 1 spray INTO ALTERNATING NOSTRILS ONCE DAILY fluticasone propionate [Flonase Allergy Relief] 50 mcg/actuation spray,suspension 1 spray NASAL BID PRN (Reason: allergy symptoms) Qty: 16 1RF Atrovent HFA 17 mcg/actuation HFA aerosol inhaler See Rx Instructions .ROUTE .COMPLEX Qty: 12.9 3RF Dose Instruction: inhale 2 puffs by mouth TWO TO FOUR TIMES A DAY if needed Rx Instructions: inhale 2 puffs by mouth TWO TO FOUR TIMES A DAY if needed albuterol sulfate 90 mcg/actuation HFA aerosol inhaler 2 puff INHALATION Q6H PRN (Reason: shortness of breath or wheezing) Qty: 8 2RF Rx Instructions: use with spacer device hydroxyzine HCl 25 mg tablet 25 mg PO BID PRN (Reason: Anxiety, insomnia) Qty: 30 2RF CBD Oil Tincture See Rx Instructions .ROUTE .COMPLEX Patient Comments: 1-5 drops PO TID PRN Rx Instructions: 1-5 drops PO TID PRN Protein smoothie See Rx Instructions .ROUTE .COMPLEX Patient Comments: 1 cup PO QAM Rx Instructions: 1 cup PO QAM diclofenac sodium 1 % gel 2 g TOP QID Qty: 100 4RF Rx Instructions: apply to low back cyanocobalamin (vitamin B-12) 1,000 mcg/mL solution 1,000 mcg IM QMONTH Qty: 10 10RF Referrals: Donta Shay, [Primary Care Provider] - Stand Alone Forms: Patient Portal/API
[2022-06-15] MEDS: KETOROLAC 30 MG/ML VIAL IM (00:47)
[2022-06-15] MEDS: CYCLOBENZAPRINE 10 MG PREPACK 1 BOTTLE MISC (00:48)
[2022-06-15 00:51] VITALS: BP 123/69; PULSE 74; RESP 16; O2SAT 95
== END 2022-06-15 00:54 | disposition home or self-care (01) ==
PROVIDERS: Emergency Provider Emergency Medicine; PCP Family Medicine
DX: M54.16 Radiculopathy, lumbar region (principal)
CPT/HCPCS: 96372; 99283; J1885

== ENCOUNTER → 2022-07-23 12:52 | Outpatient (CLI) | payer OTHER, MEDICAID, SELFPAY ==
[2022-07-23 13:53] LABS: Influenza A - CEPHEID Flu A NEGATIVE (NEGATIVE); Influenza B - CEPHEID Flu B NEGATIVE (NEGATIVE); Respiratory Syncytial Virus Negative (Negative)
[2022-07-23 13:54] LABS: COVID-19 CEPHEID 4-PLEX PCR Negative (Negative)
== END ==
PROVIDERS: PCP Family Medicine; Visit Provider Nurse Practitioner Family
DX: J06.9 Acute upper respiratory infection, unspecified (principal)
CPT/HCPCS: 0241U

== ENCOUNTER → 2022-09-23 10:05 | Outpatient (CLI) | payer OTHER, MEDICAID, SELFPAY | PROVIDERS: PCP Family Medicine; Referring Provider Student in an Organized Health Care Education/Training Program; Visit Provider Student in an Organized Health Care Education/Training Program | DX: R21 Rash and other nonspecific skin eruption (principal); W57.XXXA Bitten or stung by nonvenomous insect and other nonvenomous arthropods, initial encounter | CPT/HCPCS: 36415; 86618 ==

== ENCOUNTER → 2022-09-30 09:30 | Outpatient (CLI) | payer OTHER, MEDICAID, SELFPAY ==
--- NOTE | 2022-09-30 09:31 | DI.RAD.S_ITS ---
PROCEDURE: XR LUMBAR SPINE 2-3V INDICATIONS: eval back pain TECHNIQUE: 3 views of the lumbar spine were acquired. COMPARISON: [facility], CR, XR LUMBAR SPINE 2-3V, 09/21/2020, 14:59. [facility], CR, XR LUMBAR SPINE MIN 4V, 10/24/2019, 13:52. FINDINGS: Bones: 5 [id number] vertebrae are present. Grade 2 anterolisthesis of L5 on S1 secondary to pars defects. Moderate disc height loss at L5-S1. Mild disc height loss at remaining levels. Soft tissues: Overlying bowel gas pattern is normal. No suspicious soft tissue calcifications. IMPRESSION: Grade 2 anterolisthesis of L5 on S1 secondary to pars defects. This is unchanged from prior. Mild to moderate, multilevel degenerative disc disease. Dictated by: Nestor Chapa M.D. on 09/30/2022 at 13:26 Approved by: Nestor Chapa M.D. on 09/30/2022 at 13:27
== END ==
PROVIDERS: PCP Family Medicine; Referring Provider Family Medicine; Visit Provider Family Medicine
DX: M53.3 Sacrococcygeal disorders, not elsewhere classified (principal); M43.17 Spondylolisthesis, lumbosacral region; M51.37 Other intervertebral disc degeneration, lumbosacral region; M54.9 Dorsalgia, unspecified; G89.29 Other chronic pain
CPT/HCPCS: 72100

== ENCOUNTER 2022-11-26 09:31 | Emergency (ER) | payer OTHER, MEDICAID, SELFPAY ==
[2022-11-26 09:34] VITALS: BP 178/96; PULSE 82; RESP 16; TEMP 36.5; O2SAT 96; BMI 22.8
[2022-11-26 10:03] LABS: COVID19 -Nasal RAPID Negative (Negative)
--- NOTE | 2022-11-26 10:52 | ED.ABDPAIN ---
HPI - Abdominal Pain General Chief Complaint: Upper Respiratory Symptoms Stated Complaint: Cough,sore thoat Time Seen by Provider: 11/26/22 09:33 History of Present Illness HPI narrative: On triage patient had complaints of cough and sore throat. However this is chronic for her she states. She says she is actually here for abdominal distention discomfort no bowel movement for past 3 days which is unusual for her because she usually has 1 every day. She is had a 25 lb weight gain in the past 1 or 2 years. There is family history of cancers including colon cancer. Patient has not had a colonoscopy for many many many years. No night sweats or weight loss. Patient denies any changes in her diet. No fever or chills. Has chronic low back pain which is not new for her. No chest pain. Related Data Home Medications Medication Instructions Recorded Confirmed [PROBIOTIC] 2 - 3 cap PO QDAY ##0 05/12/17 10/23/22 CBD Oil Tincture See Rx Instructions .Route .COMPLEX 07/27/18 10/23/22 Protein smoothie See Rx Instructions .Route .COMPLEX 07/27/18 10/23/22 Previous Rx's Medication Instructions Recorded cyanocobalamin (vitamin B-12) 1,000 mcg IM QMONTH anemia #10 mL 05/22/21 1,000 mcg/mL injection solution diclofenac sodium 1 % topical gel 2 g topical QID #100 grams 05/22/21 phenazopyridine 100 mg tablet 100 mg PO TID PRN pain 6 doses #7 09/27/21 (Pyridium) tabs albuterol sulfate 90 mcg/actuation 2 puff inhalation Q6H PRN 12/18/21 aerosol inhaler shortness of breath or wheezing #8 grams hydroxyzine HCl 25 mg tablet 25 mg PO BID PRN Anxiety, insomnia 12/18/21 #30 tabs fluticasone propionate 50 1 spray intranasal BID PRN allergy 05/08/22 mcg/actuation nasal symptoms #16 grams spray,suspension (Flonase Allergy Relief) ipratropium bromide 17 See Rx Instructions .Route 05/27/22 mcg/actuation HFA aerosol inhaler .COMPLEX #12.9 grams (Atrovent HFA) cyclobenzaprine 10 mg tablet 10 mg PO TID PRN muscle spasm #14 06/15/22 tabs gabapentin 300 mg capsule 300 mg PO BEDTIME #14 caps 06/15/22 methocarbamol 500 mg tablet 500 mg PO TID PRN muscle strain 06/16/22 #30 tabs estradiol 0.01% (0.1 mg/gram) 0.25 appful vaginal 2XW PRN 09/29/22 vaginal cream (Estrace) Atrophic vaginitis #42.5 grams ketorolac 10 mg tablet 10 mg PO DAILY PRN pain #20 tabs 09/29/22 Allergies Allergy/AdvReac Type Severity Reaction Status Date / Time Latex, Natural Rubber Allergy Mild REDNESS, Verified 10/06/22 15:43 [LATEX, NATURAL RUBBER] IRRITATION AND BLISTERS hydrocodone AdvReac Intermediate MAKES MY Verified 10/06/22 15:43 SKIN CRAWL AND ITCH. WIRES ME UP. codeine [CODEINE] AdvReac Mild makes my Verified 10/06/22 15:43 skin crawl Penicillins [PENICILLINS] AdvReac Mild UPSET Verified 10/06/22 15:43 STOMACH AND DIARRHEA Sulfa (Sulfonamide AdvReac Mild GI upset Verified 10/06/22 15:43 Antibiotics) [SULFA (SULFONAMIDE ANTIBIOTICS)] tramadol [TRAMADOL] AdvReac Mild UPPER Verified 10/06/22 15:43 RESPIRATORY ISSUES BUT TOLERABLE Review of Systems Review of Systems Narrative: GENERAL: negative chills, fatigue, malaise, fever, sweats. HEENT: negative sinus pain, ear pain, positive sore throat RESPIRATORY: negative dyspnea, positive cough CARDIOVASCULAR: negative chest pain, palpitations GASTROINTESTINAL: Positive nausea, negative vomiting, positive distention and constipation and abdominal pain : negative dysuria, frequency, hematuria MUSCULOSKELETAL: negative muscle or bony pain SKIN: negative rash, skin lesions NEUROLOGIC: negative weakness, numbness ROS Unobtainable: All systems reviewed & are unremarkable except as noted in HPI and below Patient History Medical History Lumbar spondylosis Nephrolithiasis Hormone replacement therapy Anxiety Pernicious anemia Right hip pain Lumbar pain Fatigue Chronic SI joint pain Mid back pain Vaginal irritation Osteoarthritis Kidney stones (2008) Osteoporosis Arthritis Depression Migraines Gutierrez's esophagus Pernicious anemia 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 Mother Cancer Brother Cancer Gallstones Family/Other No problems noted. Family/Other Rheumatoid arthritis Social History Smoking Status: Current every day smoker Tobacco: How many years used: 30 quit status: quit date established second hand exposure: Yes alcohol intake: current substance use type: marijuana Smoking Status: Current every day smoker alcohol intake frequency: 0-2 drinks per day Alcohol type: wine Substance Use Type: does not use Exam Narrative Exam Narrative: GENERAL: in no distress, not toxic not dyspneic HEAD: Normocephalic. EYES: Pupils equal round NECK: Trachea midline. CARDIOVASCULAR: Regular rate and rhythm RESPIRATORY: Clear to auscultation. Breath sounds equal bilaterally. No wheezes, rales, or rhonchi. Speaking full sentences. GASTROINTESTINAL: Abdomen soft, non-tender, abdomen is slightly distended, bowel sounds are present. Nontender though. No peritoneal signs. No CVA tenderness. No pain out of portion exam. EXTREMITIES: No gross deformities. BACK: No flank tenderness. NEURO: AOx4. SKIN: Warm and dry PSYCH: Not anxious, is cooperative Initial Vital Signs Initial Vital Signs: Vital Signs Temperature 97.7 F 11/26/22 09:34 Pulse Rate 82 11/26/22 09:34 Respiratory Rate 16 11/26/22 09:34 Blood Pressure 178/96 H 11/26/22 09:34 Pulse Oximetry 96 11/26/22 09:34 Oxygen Delivery Method Room Air 11/26/22 09:34 Course Orders Ordered: Discontinued Medications Sodium Chloride (Normal Saline 0.9%) 1,000 mls @ 1,000 mls/hr IV BOLUS ONE Stop: 11/26/22 11:50 Last Infusion: 11/26/22 12:09 Dose: Infused Documented By: Admin: 11/26/22 11:08 Dose: 1,000 mls/hr Documented By: MS Ketorolac Tromethamine (Ketorolac 30 Mg/Ml Vial) 15 mg IV NOW ONE Stop: 11/26/22 12:02 Last Admin: 11/26/22 12:09 Dose: 15 mg Documented By: RB Vital Signs Vital signs: Vital Signs - 8 hr 11/26/22 09:34 11/26/22 11:01 11/26/22 11:17 Temperature 97.7 F Pulse Rate 82 66 65 Respiratory Rate 16 18 19 Blood Pressure 178/96 H 181/88 H Pulse Oximetry 96 95 98 Oxygen Delivery Method Room Air Room Air Room Air 11/26/22 12:00 11/26/22 12:30 Temperature Pulse Rate 66 70 Respiratory Rate 18 Blood Pressure 180/86 H Pulse Oximetry 99 98 Oxygen Delivery Method Room Air Room Air MDM - Abdominal Pain Lab Data 11/26/22 11:00 11/26/22 11:00 Labs: Lab Results 11/26/22 11/26/22 11/26/22 Range/Units 09:38 11:00 12:30 WBC 7.6 (4.5-11.0) X10^3/uL RBC 4.33 (4.0-5.2) X10^6/uL Hgb 14.3 (12.0-16.0) g/dL Hct 41.6 (36-46) % MCV 95.9 (80-100) fL MCH 33.1 (26-34) PG MCHC 34.5 (30-36) % RDW 13.6 (11.6-14.8) % Plt Count 349 (150-400) X10^3/uL Neut % (Auto) 60.5 (50-75) % Lymph % (Auto) 28.4 (25-40) % [place] % (Auto) 9.2 (3-14) % Eos % (Auto) 0.9 L (2-4) % Baso % (Auto) 1.0 (0-2) % Neut # (Auto) 4600 (9185-7663) /uL Lymph # (Auto) 2200 (9671-9365) /uL [place] # (Auto) 700 (0-900) /uL Eos # (Auto) 100 (0-450) /uL Baso # (Auto) 100 (0-100) /uL Sodium 138 (137-145) mmol/L Potassium 4.1 (3.4-5.1) mmol/L Chloride 104 (98-107) mmol/L Carbon Dioxide 27 (22-32) mmol/L BUN 19 H (7-17) mg/dL Creatinine 0.65 (0.52-1.04) mg/dL Estimated GFR > 60 (>60) mL/min BUN/Creatinine Ratio 29.2 H (6-22) Glucose 106 (80-110) mg/dL Calcium 9.9 (8.4-10.2) mg/dL Total Bilirubin 0.6 (0.2-1.3) mg/dL AST 25 (14-36) IU/L ALT 19 (<35) IU/L Alkaline Phosphatase 59 (38-126) U/L Total Protein 7.3 (6.3-8.2) g/dL Albumin 4.5 (3.5-5.0) g/dL Globulin 2.8 (1.7-4.1) g/dL Albumin/Globulin Ratio 1.6 (1.0-2.8) Lipase 45 (23-300) U/L Urine RBC 0-1/hpf (0-5/HPF) Urine WBC 0-1/hpf (0-5/HPF) Ur Squamous Epith Cells 0-1 /hpf (0-5/HPF) Urine Bacteria Occasional (0-1) (None) Ur Culture Indicated? TNP SARS-CoV-2 (PCR) Negative (Negative) Point of care testing: Urine Dip Bedside Urine Glucose Negative Bedside Urine Bilirubin - Negative Bedside Urine Ketone +/- 5 Urine Specific [place] 1.005 Bedside Urine Occult Blood +/- Bedside Urine pH 5 Bedside Urine Protein - Negative Bedside Urine Urobilinogen - Negative Bedside Urine Nitrite - Negative Bedside Urine Leukocytes - Negative Esterase Imaging Data CT scan - abdomen/pelvis: Radiologist's Impression: [address] [address] [address] Scan Report Signed Patient: Jennifer De Jesus MR#: [id number] : 1960 Acct:[id number] Age/Sex: 62 / F Date of Service: 11/26/22 Loc: ED Accession Number: [id number] Procedure: CT abdomen pelvis w con Ordering Provider: Suresh Limon MD PROCEDURE: CT ABDOMEN PELVIS W CON INDICATIONS: abdominal discomfort/distention TECHNIQUE: After the administration of intravenous contrast, axial sections acquired from the lung bases to the pubic symphysis. Coronal and sagittal reformats were performed. For radiation dose reduction, the following was used: automated exposure control, adjustment of mA and/or kV according to patient size. COMPARISON: [facility], CT, CT ABDOMEN PELVIS WO/W CON, 12/01/2018, 10:31. [facility], MR, MR LUMBAR SPINE WITHOUT CONTRAST, 10/29/2020, 7:18. FINDINGS: Image quality: Excellent. Lung bases: Unremarkable. Heart: No significant findings. ABDOMEN: Liver: Mild diffuse hepatic steatosis period no masses.. Gallbladder: Unremarkable without calcified gallstones. Biliary ducts: Unremarkable. Pancreas: Unremarkable. Spleen: Unremarkable. Adrenal Glands: Unremarkable. Kidneys and Ureters: Unremarkable. Stomach and Bowel: Stomach, small bowel loops, and colon are unremarkable. Peritoneum: No abnormal intraperitoneal fluid. No free air. Ventral Wall: No hernias. Abdominal Nodes: No retroperitoneal or mesenteric adenopathy by size criteria. Vessels: Aorta and inferior vena cava are normal in size. Incidental note made of a dilated refluxing left gonadal vein with left pelvic varicosities in the paraovarian region. PELVIS: Pelvic Organs: Unremarkable. Bladder: Unremarkable. Pelvic Nodes: No enlarged lymph nodes. Miscellaneous: No hernias are seen. Bones: Bilateral L5 pars defects. Mild anterolisthesis of L5 on S1 with bilateral severe foraminal narrowing and foraminal L5 nerve root impingement. IMPRESSION: 1. No acute abdominal process noted. 2. Mild diffuse hepatic steatosis. 3. Note made of bilateral L5 pars defects, anterolisthesis of L5 on S1, and severe bilateral foraminal narrowing at that level. 4. 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 This is typically asymptomatic in a postmenopausal female. Dictated by: Mirza Centeno M.D. on 11/26/2022 at 12:41 Approved by: Mirza Centeno M.D. on 11/26/2022 at 12:47 MDM Narrative Medical decision making narrative: On triage patient had complaints of cough and sore throat. However this is chronic for her she states. She says she is actually here for abdominal distention discomfort no bowel movement for past 3 days which is unusual for her because she usually has 1 every day. She is had a 25 lb weight gain in the past 1 or 2 years. There is family history of cancers including colon cancer. Patient has not had a colonoscopy for many many many years. No night sweats or weight loss. Patient denies any changes in her diet. No fever or chills. Has chronic low back pain which is not new for her. No chest pain. After history and exam CBC CMP CT abdomen pelvis COVID swab normal saline MDM CC: Abdominal pain cough Complicating co-morbidities: Patient is a smoker Data collected from: Patient Medical records reviewed: No recent visit for this complaint Differential considered: Includes but not limited to chronic cough, constipation bowel obstruction colon cancer pancreatitis neoplasm of the abdomen Exam documented above, pertinent findings include: Slightly distended abdomen Lab Test results independently reviewed as above. Pertinent findings: WBC 7.6 hemoglobin 14.3 sodium 138 potassium 4.1 BUN 19 creatinine 0.65 GFR greater than 60 AST 25 ALT 19 lipase 45 COVID negative Urinalysis negative nitrite negative leukocyte esterase Imaging studies independently reviewed: CT abdomen pelvis no acute finding Consultations: None indicated Treatments: Normal saline, Toradol for back pain Re-evaluations: 1:00 p.m.. Reviewed results with patient. They are reassuring. As well as laboratory studies and imaging. Pain is better after Toradol, patient has chronic back pain. Patient sees [facility] with Dr. Carey. Return precautions reviewed with her. She does agree for follow up with General surgery for abdominal discomfort and weight gain. Nontoxic at discharge. She desires discharge home Discussion: Appropriate for discharge home. Exam and laboratory studies and imaging are reassuring. No acute findings on workup. Return precautions reviewed with patient. Nontoxic at discharge. She desires discharge home. Pain is controlled. Cough is controlled. Diagnosis: Chronic cough, abdominal pain Discharge Plan Departure Patient Disposition: Home Clinical Impression: Chronic cough Abdominal pain Qualifiers: Abdominal location: unspecified location Qualified Code(s): R10.9 - Unspecified abdominal pain Instructions: DI for Abdominal Pain-Adult Activity Restrictions/Additional Instructions: Please see your family doctor within a week for re-evaluation. Please call General surgery office regarding her weight gain and abdominal discomfort for re-evaluation. No prescriptions indicated today. Laboratory studies and imaging/CT scan are reassuring as well as your exam. Return if worse if any questions or concerns. Please do continue your home medications Prescriptions: No Action phenazopyridine [Pyridium] 100 mg tablet 100 mg PO TID PRN (Reason: pain) Qty: 7 0RF [PROBIOTIC] 2 - 3 cap PO QDAY Qty: 0 fluticasone propionate [Flonase Allergy Relief] 50 mcg/actuation spray,suspension 1 spray NASAL BID PRN (Reason: allergy symptoms) Qty: 16 1RF Atrovent HFA 17 mcg/actuation HFA aerosol inhaler See Rx Instructions .ROUTE .COMPLEX Qty: 12.9 3RF Dose Instruction: inhale 2 puffs by mouth TWO TO FOUR TIMES A DAY if needed Rx Instructions: inhale 2 puffs by mouth TWO TO FOUR TIMES A DAY if needed albuterol sulfate 90 mcg/actuation HFA aerosol inhaler 2 puff INHALATION Q6H PRN (Reason: shortness of breath or wheezing) Qty: 8 2RF Rx Instructions: use with spacer device hydroxyzine HCl 25 mg tablet 25 mg PO BID PRN (Reason: Anxiety, insomnia) Qty: 30 2RF estradiol [Estrace] 0.01 % (0.1 mg/gram) cream 0.25 appful Vaginal 2XW PRN (Reason: Atrophic vaginitis) Qty: 42.5 2RF ketorolac 10 mg tablet 10 mg PO DAILY PRN (Reason: pain) Qty: 20 1RF CBD Oil Tincture See Rx Instructions .ROUTE .COMPLEX Patient Comments: 1-5 drops PO TID PRN Rx Instructions: 1-5 drops PO TID PRN Protein smoothie See Rx Instructions .ROUTE .COMPLEX Patient Comments: 1 cup PO QAM Rx Instructions: 1 cup PO QAM diclofenac sodium 1 % gel 2 g TOP QID Qty: 100 4RF Rx Instructions: apply to low back cyanocobalamin (vitamin B-12) 1,000 mcg/mL solution 1,000 mcg IM QMONTH Qty: 10 10RF methocarbamol 500 mg tablet 500 mg PO TID PRN (Reason: muscle strain) Qty: 30 0RF cyclobenzaprine 10 mg tablet 10 mg PO TID PRN (Reason: muscle spasm) Qty: 14 0RF gabapentin 300 mg capsule 300 mg PO BEDTIME Qty: 14 0RF Referrals: Alexander Candelaria MD [Physician] - Donta Shay DO [Primary Care Provider] - Stand Alone Forms: Patient Portal/API
[2022-11-26 11:01] VITALS: BP 181/88; PULSE 66; RESP 18; O2SAT 95
[2022-11-26] MEDS: SODIUM CHLORIDE 0.9% 1,000 ML 1000 ML IV (11:08)
[2022-11-26 11:17] VITALS: PULSE 65; RESP 19; O2SAT 98
[2022-11-26 11:30] LABS: Add Manual Diff / Slide Review NO; Basophils Absolute Auto 100 /uL (0-100); Eosinophils Absolute Auto 100 /uL (0-450); Eosinophils Percent Auto 0.9 % (2-4); Hematocrit 41.6 % (36-46); Hemoglobin 14.3 g/dL (12.0-16.0); Lymphocytes Absolute Auto 2200 /uL (1100-4500); Lymphocytes Percent Auto 28.4 % (25-40); Mean Corpuscular HGB Conc 34.5 % (30-36); Mean Corpuscular Hemoglobin 33.1 PG (26-34); Mean Corpuscular Volume 95.9 fL (80-100); Monocytes Absolute Auto 700 /uL (0-900); Monocytes Percent Auto 9.2 % (3-14); Neutrophils Absolute Auto 4600 /uL (1500-7000); Neutrophils Percent Auto 60.5 % (50-75); Platelet Count 349 X10^3/uL (150-400); Red Blood Cell Count 4.33 X10^6/uL (4.0-5.2); Red Cell Distribution Width 13.6 % (11.6-14.8); White Blood Cell Count 7.6 X10^3/uL (4.5-11.0)
[2022-11-26 11:44] LABS: Alanine Aminotransferase 19 IU/L (<35); Albumin 4.5 g/dL (3.5-5.0); Albumin Globulin Ratio 1.6 (1.0-2.8); Alkaline Phosphatase 59 U/L (38-126); Aspartate Aminotransferase 25 IU/L (14-36); BUN Creatinine Ratio 29.2 (6-22); Bilirubin Total 0.6 mg/dL (0.2-1.3); Blood Urea Nitrogen 19 mg/dL (7-17); Calcium 9.9 mg/dL (8.4-10.2); Carbon Dioxide 27 mmol/L (22-32); Chloride 104 mmol/L (98-107); Estimated Glomerular Filt Rate > 60 mL/min (>60); Globulin 2.8 g/dL (1.7-4.1); Glucose 106 mg/dL (80-110); HEMOLYSIS < 15 (0-50); Lipase 45 U/L (23-300); Potassium 4.1 mmol/L (3.4-5.1); Sodium 138 mmol/L (137-145); Total Protein 7.3 g/dL (6.3-8.2)
[2022-11-26 12:00] VITALS: PULSE 66; RESP 18; O2SAT 99
[2022-11-26] MEDS: KETOROLAC 30 MG/ML VIAL 15 MG IV (12:09)
[2022-11-26 12:30] VITALS: BP 180/86; PULSE 70; O2SAT 98
[2022-11-26 13:07] VITALS: TEMP 36.8
[2022-11-26 13:10] LABS: Bacteria Urine Occasional (0-1); RBC Urine 0-1/HPF (0-5/HPF); Squamous Epithelial Cell Urine 0-1 /HPF (0-5/HPF); WBC Urine 0-1/HPF (0-5/HPF)
== END 2022-11-26 13:08 | disposition home or self-care (01) ==
PROVIDERS: Emergency Provider Emergency Medicine; Family Provider Family Medicine; PCP Family Medicine
DX: R05.3 Chronic cough (principal); R10.9 Unspecified abdominal pain; Z20.822 Contact with and (suspected) exposure to COVID-19
CPT/HCPCS: 36415; 74177; 80053; 81003; 81015; 83690; 85025; 87086; 87635; 96361; 96374; 99284; C9803; J1885; Q9967

== ENCOUNTER → 2023-03-11 10:18 | Outpatient (CLI) | payer OTHER, MEDICAID, SELFPAY ==
--- NOTE | 2023-03-11 10:19 | DI.RAD.S_ITS ---
Bone Density Report Name: ELODIA MOODY Age: 62 Sex: Female Ethnicity: White Date of : 1960 Indication: postmenopausal osteoporosis; prior fracture; Referring Provider: CLARIBEL NOLAND Study: Bone densitometry was performed. Exam Date: March 11, 2023 Accession number: [id number] Bone Density: Region BMD T-score Z-score Classification AP Spine(L1-L4) 0.629 -3.8 -2.0 Osteoporosis Femoral Neck (Left) 0.555 -2.7 -1.2 Osteoporosis Total Hip (Left) 0.705 -1.9 -0.7 Osteopenia Femoral Neck (Right) 0.491 -3.2 -1.7 Osteoporosis Total Hip (Right) 0.655 -2.4 -1.1 Osteopenia Total Hip Mean 0.680 -2.2 -0.9 Osteopenia World Health Organization criteria for BMD impression classify patients as: Normal (T-score at or above -1.0), Osteopenia (T-score between -1.0 and -2.5), or Osteoporosis (T-score at or below -2.5). 10-year Fracture Risk: FRAX not reported because: Some T-score for Spine Total or Hip Total or Femoral Neck at or below -2.5 Prior hip or vertebral fracture Previous Exams: -- Region Exam Age BMD T-score BMD Change BMD Change Date g/cm2 vs Baseline vs Previous -- AP Spine (L1-L4) 03/11/2023 62 0.629 -3.8 -0.037 (-5.6%)# -0.037 (-5.6%)# 05/19/2017 57 0.667 -3.5 Total Hip(Left) 03/11/2023 62 0.705 -1.9 0.020 (2.8%)# 0.020 (2.8%)# 05/19/2017 57 0.686 -2.1 Total Hip(Right) 03/11/2023 62 0.655 -2.4 0.035 (5.7%)# 0.035 (5.7%)# 05/19/2017 57 0.620 -2.6 -- *Denotes significance at 95% confidence level, LSC for AP Spine = 0.022 g/cm2, LSC for Total Hip = 0.027 g/cm2 # Denotes dissimilar scan types or analysis methods Impression: The patient has established osteoporosis, based on the Total Spine T-score and the existence of a prior fracture. The patient has risk factors, including: previous fracture. No significant bone loss was observed. Discussion: HIGH RISK OF FRACTURE. BONE DENSITY IS UNDESIRABLY LOW AT ONE OR MORE SKELETAL SITES, CONSISTENT WITH POSTMENOPAUSAL OSTEOPOROSIS. This patient's lowest T-score, in a patient who has previously fractured, meets the World Health Organization's (WHO) criteria for severe osteoporosis. In untreated patients, the risk of osteoporotic fracture increases approximately two-fold for each 1.0 SD decrease in T-score. Low bone density is not the only risk factor for fracture; also consider factors such as patient's age, frailty or poor health, risk of falling, risk of injury, previous osteoporotic fracture, family history of osteoporosis, cigarette smoking, low body weight, etc. Not everyone with low bone mineral density has osteoporosis; osteomalacia and other metabolic bone disorders should also be considered. Patients who have osteoporosis should be evaluated for specific diseases and conditions (secondary causes) that may cause or contribute to bone loss. The [place] [employer]ocrinologists (AACE) and National Osteoporosis Foundation (NOF) recommend pharmacologic intervention for all postmenopausal women with a previous hip or vertebral fracture and a T-score in this range. The patient should follow a healthful lifestyle (good nutrition with adequate calcium and vitamin D, and appropriate weight-bearing exercise). Follow-Up: Consider a repeat BMD and Vertebral Fracture Assessment (VFA) exam in 2 years or sooner if medically necessary, to reassess this patient's status. Reported by: [facility] RADHA GARCIA M.D. on 03/11/2023 11:01:00 AM.
--- NOTE | 2023-03-11 10:25 | DI.CT.S_ITS ---
PROCEDURE: CT LUNG LOW DOSE SCREENING INDICATIONS: eval lung cancer TECHNIQUE: Noncontrast 2.0-2.5 mm thick sections acquired from the pulmonary apices to the posterior costophrenic angles. 7 mm thick axial MIP, and 5 mm coronal and sagittal reformats were then acquired. For radiation dose reduction, the following was used: automated exposure control, adjustment of mA and/or kV according to patient size. COMPARISON: None. FINDINGS: Image quality: Diagnostic. Lower Neck: No enlarged lymph nodes. Thyroid: No thyroid nodules which require sonographic follow up, per consensus guidelines. Axillae: No enlarged lymph nodes. Chest Wall: Unremarkable. Bones: Unremarkable. Lungs and Pleura: No pneumothorax or pleural effusions. There is mild centrilobular emphysema with an apical predominance. Heart: Heart size is normal. No pericardial effusion. Thoracic Vessels: The aorta and pulmonary arteries demonstrate normal size. Scattered atheromatous calcifications are present within the aortic arch. Mediastinum and Melissa: No enlarged lymph nodes. Esophagus: No wall thickening. No hiatal hernia. Upper Abdomen: Visualized upper abdomen solid organs and bowel loops appear normal. IMPRESSION: No suspicious pulmonary nodules. LUNG-RADS 1; continued annual screening, if eligible. Clinically Significant Non-pulmonary Findings: None. Dictated by: Alva Ribeiro M.D. on 03/11/2023 at 14:46 Approved by: Alva Ribeiro M.D. on 03/11/2023 at 14:48
== END ==
LOC: CT 10:18
PROVIDERS: Family Provider Family Medicine; PCP Family Medicine; Referring Provider Family Medicine; Visit Provider Family Medicine
DX: Z12.2 Encounter for screening for malignant neoplasm of respiratory organs (principal); F17.210 Nicotine dependence, cigarettes, uncomplicated; J43.2 Centrilobular emphysema; M81.0 Age-related osteoporosis without current pathological fracture; Z78.0 Asymptomatic menopausal state; M19.90 Unspecified osteoarthritis, unspecified site
CPT/HCPCS: 71271; 77080

== ENCOUNTER 2023-05-29 09:45 | Outpatient (RCR) | payer MEDICARE, MEDICAID, SELFPAY ==
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
== END 2023-06-11 12:01 | disposition home or self-care (01) ==
LOC: PHYS 09:45
PROVIDERS: Family Provider Family Medicine; PCP Family Medicine; Referring Provider Family Medicine; Visit Provider Family Medicine
DX: M54.16 Radiculopathy, lumbar region (principal); M43.16 Spondylolisthesis, lumbar region; R53.1 Weakness; R27.8 Other lack of coordination
CPT/HCPCS: 97110; 97112; 97140; 97162; 97530

== ENCOUNTER → 2023-09-09 09:14 | Outpatient (CLI) | payer MEDICARE, MEDICAID, SELFPAY ==
--- NOTE | 2023-09-09 09:15 | DI.MG.S_ITS ---
BILATERAL DIGITAL SCREENING MAMMOGRAM 3D/2D WITH CAD: 09/09/2023 CLINICAL: Routine screening. Comparison is made to exams dated: 03/10/2019 mammogram, 03/02/2018 mammogram, and 08/13/2016 mammogram - [facility]. There are scattered areas of fibroglandular density in both breasts (category b / 25%-50% glandular tissue). Current study was also evaluated with a Computer Aided Detection (CAD) system. No significant masses, calcifications, or other findings are seen in either breast. There has been no significant interval change. IMPRESSION: NEGATIVE There is no mammographic evidence of malignancy. A 1 year screening mammogram is recommended. Based on the Tyrer Cuzick model (a risk assessment model) the patient's lifetime risk is 5.4% and her 10 year risk is 2.6%. According to the ACR, ACS, and NCCN guidelines, an annual breast MRI exam along with mammogram is recommended if the patient's lifetime risk is 20% or greater. This exam was interpreted at Station ID: [id number]. NOTE: For mammograms, a report in lay terms will be sent to the patient. Approximately 15% of breast malignancies will not be visualized mammographically. In the management of a palpable breast mass, a negative mammogram must not discourage biopsy of a clinically suspicious lesion. Electronically Signed By: Zia allen/philip:09/09/2023 10:31:43 letter sent: Normal Exam ACR BI-RADS Category 1: Negative [id number]
== END ==
PROVIDERS: Family Provider Family Medicine; PCP Family Medicine; Referring Provider Family Medicine; Visit Provider Family Medicine
DX: Z12.31 Encounter for screening mammogram for malignant neoplasm of breast (principal); R92.323 Mammographic fibroglandular density, bilateral breasts
CPT/HCPCS: 77063; 77067

== ENCOUNTER → 2023-11-28 08:23 | Outpatient (CLI) | payer MEDICARE, MEDICAID, SELFPAY ==
[2023-11-28 10:00] LABS: Cholesterol 239 mg/dL (140-199); HDL Cholesterol 54 mg/dL (40-60); LDL Cholesterol Calculated 144 mg/dL (<100); Triglycerides 206 mg/dL (35-150)
[2023-11-28 10:45] LABS: Vitamin B12 423 pg/mL (239-931)
== END ==
PROVIDERS: Physician Assistant; Family Provider Family Medicine; PCP Family Medicine; Referring Provider Family Medicine; Visit Provider Family Medicine
DX: E78.5 Hyperlipidemia, unspecified (principal); E53.8 Deficiency of other specified B group vitamins; D51.0 Vitamin B12 deficiency anemia due to intrinsic factor deficiency
CPT/HCPCS: 36415; 80061; 82607